=== PATIENT | female | born 1940 | race Caucasian/White ===

== ENCOUNTER 2020-08-19 12:13 | Emergency (ER) | payer MEDICARE ==
[2020-08-19 12:29] VITALS: BP 188/73; PULSE 57; RESP 18; TEMP 97.8
[2020-08-19] MEDS ORDERED: MORPHINE SULFATE 4 MG/ML SYRINGE IM STA (12:57)
--- NOTE | 2020-08-19 13:02 | ED ---
Extremity Problem HPI - General Chief complaint: Extremity Problem,Nontraumatic Stated complaint: Pain in RT Leg Time Seen by Provider: 08/19/20 12:38 Source: patient, RN notes reviewed Mode of arrival: wheelchair Limitations: no limitations - History of Present Illness Initial comments: 80-year-old female presents emergency Department with chief complaint of right leg pain. Patient states his has been ongoing for last several months. Patient states started after she was cleaning in her house. Patient has been seen by urgent care, primary multiple times, emergency department, chiropractor. Patient states that she's been referred for an MRI she has not seen orthopedics. She states she has a burning type pain down her leg denies any swelling redness discoloration patient states his hurts with movement. Denies any bowel bladder incontinence or retention. Patient has been on steroids. - Related Data Previous Rx's Medication Instructions Recorded HYDROcodone/APAP 5-325MG [Marshall 5] 1 each PO Q6HR PRN #12 tab 08/19/20 Allergies Allergy/AdvReac Type Severity Reaction Status Date / Time No Known Allergies Allergy Verified 08/19/20 12:29 Review of Systems ROS Statement: Those systems with pertinent positive or pertinent negative responses have been documented in the HPI. ROS Other: All systems not noted in ROS Statement are negative. Past Medical History Past Medical History: Dementia, Diabetes Mellitus, Hyperlipidemia, Hypertension, Memory Impairment, Renal Disease, Thyroid Disorder History of Any Multi-Drug Resistant Organisms: None Reported Past Surgical History: Bladder Surgery, Breast Surgery, Joint Replacement Additional Past Surgical History / Comment(s): bladder suspension, partial hysterectomy. Past Psychological History: No Psychological Hx Reported Smoking Status: Never smoker Past Alcohol Use History: None Reported Past Drug Use History: None Reported General Exam Limitations: no limitations General appearance: alert, in no apparent distress Head exam: Present: atraumatic, normocephalic, normal inspection Neck exam: Present: normal inspection. Absent: tenderness, meningismus, lymphadenopathy Respiratory exam: Present: normal lung sounds bilaterally. Absent: respiratory distress, wheezes, rales, rhonchi, stridor Cardiovascular Exam: Present: regular rate, normal rhythm, normal heart sounds. Absent: systolic murmur, diastolic murmur, rubs, gallop, clicks GI/Abdominal exam: Present: soft, normal bowel sounds. Absent: distended, tenderness, guarding, rebound, rigid Extremities exam: Present: other (Lower extremity color equal bilaterally, strength equal, tenderness the right thigh region) Back exam: Present: full ROM. Absent: tenderness, paraspinal tenderness, vertebral tenderness Neurological exam: Present: alert, reflexes normal. Absent: motor sensory deficit Course Vital Signs 08/19/20 12:21 Temperature 97.8 F Pulse Rate 57 L Respiratory 18 Rate Blood Pressure 188/73 O2 Sat by Pulse 96 Oximetry Medical Decision Making - Medical Decision Making Patient's symptoms are consistent with lumbar radiculopathy, nerve impingement. Patient has no red flag symptoms. This has been ongoing issue. Patient was provided pain relief, advised to go to orthopedics directly for follow-up appointment. Disposition Clinical Impression: Lumbar radiculopathy, acute Disposition: HOME SELF-CARE Condition: Stable Instructions (If sedation given, give patient instructions): Lumbar Radiculopathy (ED) Additional Instructions: Please return to the Emergency Department if symptoms worsen or any other concerns. Prescriptions: HYDROcodone/APAP 5-325MG [Marshall 5] 1 each PO Q6HR PRN #12 tab PRN Reason: Pain Is patient prescribed a controlled substance at d/c from ED?: Yes When asked, does pt state using other controlled substances?: No If prescribed controlled substance>3 days was MAPS reviewed?: Prescribed <3 Days If opioid is for acute pain is fill amount 7 days or less?: Yes If Rx opioid, was Start Talking consent form obtained?: Yes Referrals: Minda Prater DO [Primary Care Provider] - 1-2 days Unique Mercer DO [Doctor of Osteopathic Medicine] - 1-2 days Lonnie Boo DO [Doctor of Osteopathic Medicine] - 1-2 days Time of Disposition: 13:01
== END 2020-08-19 13:29 | disposition home or self-care (01) ==
LOC: EC 12:13
DX: M54.16 Radiculopathy, lumbar region (principal); M79.651 Pain in right thigh; E11.9 Type 2 diabetes mellitus without complications; E78.5 Hyperlipidemia, unspecified; F03.90 Unspecified dementia, unspecified severity, without behavioral disturbance, psychotic disturbance, mood disturbance, and anxiety; I10 Essential (primary) hypertension
CPT/HCPCS: 99283; 96372; J2270

== ENCOUNTER 2020-09-05 00:30 | Inpatient (IN) | payer MEDICARE ==
[2020-09-05] MEDS ORDERED: MORPHINE SULFATE 4 MG/ML SYRINGE IV STA (01:20)
[2020-09-05 01:56] LABS: Basophils % (A) 0 %; Eosinophils % (A) 1 %; HCT 38.4 % (34.0-46.0); HGB 12.2 gm/dL (11.4-16.0); Lymphocytes # (A) 0.7 k/uL (1.0-4.8); Lymphocytes % (A) 11 %; MCHC 31.8 g/dL (31.0-37.0); MCV 88.3 fL (80.0-100.0); Mean Platelet Volume 6.6; Monocytes # (A) 0.4 k/uL (0-1.0); Monocytes % (A) 7 %; Neutrophils # (A) 4.8 k/uL (1.3-7.7); Neutrophils % (A) 80 %; Platelet Count 176 k/uL (150-450); RBC 4.35 m/uL (3.80-5.40); RDW 15.7 % (11.5-15.5); WBC 6.1 k/uL (3.8-10.6)
[2020-09-05 02:13] LABS: Albumin 3.5 g/dL (3.5-5.0); Calcium 9.6 mg/dL (8.4-10.2); Potassium 3.9 mmol/L (3.5-5.1); Total Bilirubin 0.2 mg/dL (0.2-1.3); Total Protein 6.1 g/dL (6.3-8.2)
--- NOTE | 2020-09-05 02:16 | XR ---
EXAM: XR Chest, 1 View CLINICAL HISTORY: ITS.REASON XR Reason: weakness TECHNIQUE: Frontal view of the chest. COMPARISON: No previous studies. FINDINGS: Lungs: No consolidative change. 0.3 cm calcified granuloma at the left upper lobe. Pleural space: No pleural effusion. No pleural effusions. No pneumothorax. Heart: Cardiomegaly. Mediastinum: Unremarkable. Bones/joints: Unremarkable. Vasculature: Atherosclerotic disease of the aortic knob. IMPRESSION: 1. Cardiomegaly. 2. No pleural effusion. 3. No consolidative change. 4. Calcified granuloma at the left upper lobe.
--- NOTE | 2020-09-05 02:31 | CT ---
EXAM: CT Lumbar Spine Without Intravenous Contrast CLINICAL HISTORY: ITS.REASON CT Reason: pain TECHNIQUE: Axial computed tomography images of the lumbar spine without intravenous contrast. CTDI is 47.1 mGy and DLP is 1425.5 mGy-cm. This CT exam was performed using one or more of the following dose reduction techniques: automated exposure control, adjustment of the mA and/or kV according to patient size, and/or use of iterative reconstruction technique. COMPARISON: MRI study of 08/23/2020. FINDINGS: Vertebrae: There is grade 1 anterolisthesis of L4 upon L5 vertebral body without spondylolysis. There is very minimal grade 1 retrolisthesis of L2 upon L3 vertebral body, without spondylolysis. No compression deformity. Transverse processes are unremarkable. Gas bubbles are noted within the spinal canal at the level of the L3 vertebral body of uncertain etiology. Sacrum/coccyx: Visualized lower thoracic spine and the visualized sacrum are unremarkable. Soft tissues: Unremarkable. Vasculature: Atherosclerotic disease. Lungs: Minimal scarring at the lung bases. Minimal scarring and subsegmental atelectasis at the lung bases. DISCS/SPINAL CANAL/NEURAL FORAMINA: L1-L2: Minimal broad-based protrusion is noted at L1-2 level with impression upon the anterior thecal sac but no narrowing of the neural foramina. L2-L3: Vacuum discs are noted at L2-3, L3-4, and L5-S1 levels. Degenerative disc disease most notably at the L2-3 and L3-4 levels. Transaxial images of the lumbar spine reveals severe spinal stenosis at the L2-3 level and posterior facet hypertrophy. L3-L4: Moderate to severe spinal stenosis is noted at the L3-4 level. Broad-based protrusion is noted with moderate to severe narrowing of the right neural foramina and moderate narrowing of the left neural foramina. L4-L5: Moderate posterior facet hypertrophy at L4-5 level. Severe acquired spinal stenosis at the L4-5 level. L5-S1: See above. Other findings: Moderate osteoarthritic changes about the sacroiliac joints. Broad-based protrusion is noted with moderate to severe narrowing of the right neural foramina and moderate narrowing of the left neural foramina. Broad-based protrusion is noted with moderate to severe narrowing of neural foramina. Broad-based protrusion is noted with mild to moderate narrowing of neural foramina. IMPRESSION: 1. Diffuse and severe spondylosis throughout the lumbar spine most notably at the L2-3, L4-5, and L5-S1 levels, similar to MRI study. 2. As discussed above gas bubbles are noted within the spinal canal posteriorly at the level of the L3 vertebral body of uncertain etiology. Is there a history of recent instrumentation? Again this finding is equivocal and of uncertain significance etiology. An inflammatory or infectious etiology or an abscess collection in the area cannot be excluded based on the current study. Further workup is necessary. Magnetic resonance imaging of the lumbar spine with contrast administration is highly advised for further assessment. 3. Multilevel spinal stenosis.
--- NOTE | 2020-09-05 02:35 | CT ---
EXAM: CT Pelvis Without Intravenous Contrast CLINICAL HISTORY: ITS.REASON CT Reason: pelvis pain TECHNIQUE: Axial computed tomography images of the pelvis without intravenous contrast. CTDI is 15.2 mGy and DLP is 554.7 mGy-cm. This CT exam was performed using one or more of the following dose reduction techniques: automated exposure control, adjustment of the mA and/or kV according to patient size, and/or use of iterative reconstruction technique. COMPARISON: No previous studies. FINDINGS: Bowel: Diverticulosis of the sigmoid colon. Best seen on axial image 35, there is very minimal haziness within the mesentery surrounding the mid sigmoid colon. The possibility of very early acute diverticulitis cannot be excluded and clinical correlation is advised. Ischiorectal fat is clean. No obstruction. Appendix: No findings to suggest acute appendicitis. Intraperitoneal space: Unremarkable. No free air. No significant fluid collection. Bladder: Unremarkable. No stones. Reproductive: Status post hysterectomy. Bones/joints: Mild to moderate osteoarthritic changes about the hip joints. The superior and inferior pubic rami are unremarkable. Moderate to severe osteoarthritic changes about the sacroiliac joints. There is grade 1 anterolisthesis of L4 upon L5 vertebral body. The sacrum and coccyx are unremarkable. The bony pelvis is unremarkable. Visualized transverse processes of the lower lumbar spine are unremarkable. No acute fracture. No dislocation. Soft tissues: 1.4 cm umbilical hernia containing mesenteric fat only. Vasculature: Unremarkable. No lower abdominal aortic aneurysm. Lymph nodes: Unremarkable. No enlarged lymph nodes. IMPRESSION: 1. Osteoarthritic and degenerative changes. 2. No acute fracture or dislocation. 3. Diverticulosis of the sigmoid colon. 4. Very minimal and subtle stranding is noted within the mesentery surrounding the mid sigmoid colon possibly on the basis of very early acute diverticulitis. This is an equivocal finding which requires clinical correlation. 5. Status post hysterectomy.
[2020-09-05] MEDS ORDERED: SODIUM CHLORIDE 0.9% 1,000 ML IV STA (03:11)
[2020-09-05] MEDS ORDERED: SODIUM CHLORIDE 0.9% 1,200 ML IV ONE (03:11)
[2020-09-05] MEDS ORDERED: LORazepam 2 MG/ML INJ IV STA (04:27)
[2020-09-05] MEDS ORDERED: NALOXONE 0.4 MG/ML 1 ML VIAL IV PRN (05:15)
[2020-09-05] MEDS ORDERED: ACETAMINOPHEN TAB 325 MG TAB PO PRN (05:15)
--- NOTE | 2020-09-05 05:31 | ED ---
General Adult HPI - General Chief complaint: Back Pain/Injury Stated complaint: Weakness Time Seen by Provider: 09/05/20 00:32 Source: EMS Mode of arrival: EMS Limitations: altered mental status - History of Present Illness Initial comments: This patient is an 80-year-old woman who arrives by ambulance with complaint of weakness and inability to walk. Patient states that she has been having back pain for quite some time and that she was not able to walk tonight due to flareup of pain associated with generalized weakness. Pain has been going on for at least some weeks and she was seen here 11 days ago for similar complaint. Tonight the patient was unable to get up from the commode after using the bathroom and they called EMS. The patient indicates mainly left lower back pain radiating into her leg. She states she has had similar symptoms intermittently for years. She has had MRI and was told she has disc disease. -: days(s) Location: back Radiation: extremity (Left leg) Quality: burning, aching Consistency: constant Improves with: none Worsens with: none Associated Symptoms: weakness Treatments Prior to Arrival: none - Related Data Previous Rx's Medication Instructions Recorded HYDROcodone/APAP 5-325MG [Kennard 5] 1 each PO Q6HR PRN #12 tab 08/19/20 Allergies Allergy/AdvReac Type Severity Reaction Status Date / Time No Known Allergies Allergy Verified 09/05/20 01:09 Review of Systems ROS Statement: Those systems with pertinent positive or pertinent negative responses have been documented in the HPI. ROS Other: All systems not noted in ROS Statement are negative. Constitutional: Reports: weakness (Generalized). Denies: fever, chills Respiratory: Denies: cough, dyspnea Cardiovascular: Denies: chest pain, palpitations, edema Gastrointestinal: Reports: diarrhea. Denies: abdominal pain, nausea, vomiting Genitourinary: Denies: dysuria, hematuria Musculoskeletal: Reports: as per HPI, back pain Skin: Denies: rash Neurological: Denies: headache, weakness (Focal), numbness Past Medical History Past Medical History: Diabetes Mellitus, Hyperlipidemia, Hypertension, Memory Impairment, Renal Disease, Thyroid Disorder History of Any Multi-Drug Resistant Organisms: None Reported Past Surgical History: Bladder Surgery, Breast Surgery, Cholecystectomy, Joint Replacement Additional Past Surgical History / Comment(s): bladder suspension, partial hysterectomy. Past Psychological History: No Psychological Hx Reported Smoking Status: Never smoker Past Alcohol Use History: None Reported Past Drug Use History: None Reported General Exam Limitations: altered mental status General appearance: alert Head exam: Present: atraumatic, normocephalic Eye exam: Present: normal appearance Respiratory exam: Present: normal lung sounds bilaterally. Absent: respiratory distress, wheezes, rales, rhonchi, stridor Cardiovascular Exam: Present: regular rate, normal rhythm, normal heart sounds. Absent: systolic murmur, diastolic murmur, rubs, gallop GI/Abdominal exam: Present: soft. Absent: distended, tenderness, guarding, rebound, rigid, mass Back exam: Present: normal inspection. Absent: CVA tenderness (R), CVA tenderness (L), paraspinal tenderness, vertebral tenderness Neurological exam: Present: alert. Absent: motor sensory deficit Skin exam: Present: warm, dry, intact, normal color. Absent: rash Course Vital Signs 09/05/20 09/05/20 01:04 02:30 Temperature 97.6 F Pulse Rate 92 86 Respiratory 20 18 Rate Blood Pressure 137/110 138/91 O2 Sat by Pulse 92 L 97 Oximetry Medical Decision Making - Medical Decision Making Patient is an 80-year-old woman brought by ambulance to be evaluated after she was too weak to walk back to bed from the commode [facility]. Patient had been having some incontinence of bowel tonight but had not had bowel movement in 6 days and had taken milk of magnesia. The patient has either some underlying dementia or some acute delirium as she is not able to give entire details. Patient's family did add that she had had a number of falls over the past few weeks and given the pain CT is ordered which does not reveal any acute fracture. There is severe lumbar disc disease, and she had been receiving some form of traction therapy through [facility] [place], on and Monday. There is question of some air bubbles in the spine at L3 level. In relation to this, patient given antibiotics. Case discussed with orthopedics [facility] Dr. Ocasio is covering for Dr. Mercer. Will order MRI of lumbar spine. Patient is not having fever or white count. Patient admitted under medical service. - Lab Data Result diagrams: 09/05/20 01:09/05/20 01:29 Lab Results 09/05/20 09/05/20 09/05/20 Range/Units 01:29 01:29 01:29 WBC 6.1 (3.8-10.6) k/uL RBC 4.35 (3.80-5.40) m/uL Hgb 12.2 (11.4-16.0) gm/dL Hct 38.4 (34.0-46.0) % MCV 88.3 (80.0-100.0) fL MCH 28.0 (25.0-35.0) pg MCHC 31.8 (31.0-37.0) g/dL RDW 15.7 H (11.5-15.5) % Plt Count 176 (150-450) k/uL MPV 6.6 Neutrophils % 80 % Lymphocytes % 11 % Monocytes % 7 % Eosinophils % 1 % Basophils % 0 % Neutrophils # 4.8 (1.3-7.7) k/uL Lymphocytes # 0.7 L (1.0-4.8) k/uL Monocytes # 0.4 (0-1.0) k/uL Eosinophils # 0.0 (0-0.7) k/uL Basophils # 0.0 (0-0.2) k/uL Sodium 136 L (137-145) mmol/L Potassium 3.9 (3.5-5.1) mmol/L Chloride 95 L (98-107) mmol/L Carbon Dioxide 35 H (22-30) mmol/L Anion Gap 6 mmol/L BUN 21 H (7-17) mg/dL Creatinine 1.41 H (0.52-1.04) mg/dL Est GFR (CKD-EPI)AfAm 40 (>60 ml/min/1.73 sqM) Est GFR (CKD-EPI)NonAf 35 (>60 ml/min/1.73 sqM) Glucose 160 H (74-99) mg/dL Lactic Ac Sepsis Rflx Plasma Lactic Acid Isra 2.9 H* (0.7-2.0) mmol/L Calcium 9.6 (8.4-10.2) mg/dL Magnesium 3.0 H (1.6-2.3) mg/dL Total Bilirubin 0.2 (0.2-1.3) mg/dL AST 27 (14-36) U/L ALT 13 (4-34) U/L Alkaline Phosphatase 72 (38-126) U/L Troponin I (0.000-0.034) ng/mL Total Protein 6.1 L (6.3-8.2) g/dL Albumin 3.5 (3.5-5.0) g/dL 09/05/20 09/05/20 Range/Units 01:29 02:51 WBC (3.8-10.6) k/uL RBC (3.80-5.40) m/uL Hgb (11.4-16.0) gm/dL Hct (34.0-46.0) % MCV (80.0-100.0) fL MCH (25.0-35.0) pg MCHC (31.0-37.0) g/dL RDW (11.5-15.5) % Plt Count (150-450) k/uL MPV Neutrophils % % Lymphocytes % % Monocytes % % Eosinophils % % Basophils % % Neutrophils # (1.3-7.7) k/uL Lymphocytes # (1.0-4.8) k/uL Monocytes # (0-1.0) k/uL Eosinophils # (0-0.7) k/uL Basophils # (0-0.2) k/uL Sodium (137-145) mmol/L Potassium (3.5-5.1) mmol/L Chloride (98-107) mmol/L Carbon Dioxide (22-30) mmol/L Anion Gap mmol/L BUN (7-17) mg/dL Creatinine (0.52-1.04) mg/dL Est GFR (CKD-EPI)AfAm (>60 ml/min/1.73 sqM) Est GFR (CKD-EPI)NonAf (>60 ml/min/1.73 sqM) Glucose (74-99) mg/dL Lactic Ac Sepsis Rflx Y Plasma Lactic Acid Isra (0.7-2.0) mmol/L Calcium (8.4-10.2) mg/dL Magnesium (1.6-2.3) mg/dL Total Bilirubin (0.2-1.3) mg/dL AST (14-36) U/L ALT (4-34) U/L Alkaline Phosphatase (38-126) U/L Troponin I <0.012 (0.000-0.034) ng/mL Total Protein (6.3-8.2) g/dL Albumin (3.5-5.0) g/dL Disposition Clinical Impression: Intractable low back pain Disposition: ADMITTED IP TO THIS [facility] Condition: Fair
[2020-09-05] MEDS ORDERED: VANCOMYCIN IV PER PHARMACY 1 EACH MISC MISCELLANE PRN (05:32)
[2020-09-05] MEDS ORDERED: VANCOMYCIN 1,500 MG in SODIUM CHLORIDE 0.9% 250 ML IVPB ONE (05:45)
[2020-09-05 07:02] LABS: Amorphous Sediment,Urine Few /hpf; Appearance,Urine Clear (Clear); Bacteria,Urine Rare /hpf; Bilirubin,Urine Negative (Negative); Blood,Urine Negative (Negative); Color,Urine Yellow; Glucose,Urine (UA) Negative (Negative); Ketones,Urine Negative (Negative); Leukocyte Esterase,Urine Negative (Negative); Nitrite,Urine Negative (Negative); Protein,Urine 2+ (Negative); Specific Gravity,Urine 1.014 (1.001-1.035); Urobilinogen,Urine <2.0 mg/dL (<2.0); WBC,Urine 3 /hpf (0-5)
--- NOTE | 2020-09-05 10:12 | CT ---
EXAMINATION TYPE: CT brain wo con DATE OF EXAM: 09/05/2020 HISTORY: altered mental status CT DLP: 1143.4 mGycm. Automated Exposure Control for Dose Reduction was Utilized. TECHNIQUE: CT scan of the head is performed without contrast. COMPARISON: None. FINDINGS: There is no acute intracranial hemorrhage or midline shift identified. There is mild diff use ventricular and sulcal prominence consistent with diffuse age-related cerebral atrophy. There is mild low-attenuation in the periventricular white matter consistent with chronic small vessel ischem ic change. Nasal septum deviated to right of midline. Hyperostosis frontalis. The globes are intact b ilaterally. The paranasal sinuses are grossly clear. IMPRESSION: No acute intracranial hemorrhage or midline shift. There is mild diffuse age-related ce rebral atrophy and chronic small vessel ischemic change noted.
[2020-09-05] MEDS: MORPHINE SULFATE 4 MG/ML SYRINGE IV PRN ×2 (11:05→17:31)
[2020-09-05] MEDS ORDERED: CYCLOBENZAPRINE 10 MG TAB PO PRN (11:47)
--- NOTE | 2020-09-05 11:48 | P.CNOR ---
History of Present Illness - [facility] Consult date: 09/05/20 Consult reason: back pain History of present illness: This patient is an 80-year-old woman who arrives by ambulance with complaint of weakness and inability to walk. Patient states that she has been having back pa in for quite some time and that she was not able to walk tonight due to flareup of pain associated with generalized weakness. Pain has been going on for at least some weeks and she was seen here 11 days ago for similar complaint. Tonight the patient was unable to get up from the commode after using the bathroom and they called EMS. The patient indicates mainly left lower back pain radiating into her leg. She states she has had similar symptoms intermittently for years. According to nursing staff, family reports that she has been taking oral pain medication at home and has been having some confusion and balance issues recently. There was concern that she was having a stroke which prompted them to call for EMS. The patient is a poor historian. According to nursing staff family states that she did have a "procedure for pain" within the last week which did improve her symptoms somewhat. We are consulted for orthopedic evaluation of her low back pain. Past Medical History Past Medical History: Diabetes Mellitus, Hyperlipidemia, Hypertension, Memory Impairment, Renal Disease, Thyroid Disorder History of Any Multi-Drug Resistant Organisms: None Reported Past Surgical History: Bladder Surgery, Breast Surgery, Cholecystectomy, Joint Replacement Additional Past Surgical History / Comment(s): bladder suspension, partial hysterectomy. Past Psychological History: No Psychological Hx Reported Smoking Status: Never smoker Past Alcohol Use History: None Reported Past Drug Use History: None Reported - Past Family History Mother Family Medical History: Dementia Brother(s) Family Medical History: Dementia, Myocardial Infarction (CT) Medications and Allergies Home Medications Medication Instructions Recorded Confirmed Type Cyclobenzaprine [Flexeril] 10 mg PO BID PRN 09/05/20 09/05/20 History HYDROcodone/APAP 5-325MG [[place] 5] 0.5 - 1 tab PO Q4-6H PRN 09/05/20 09/05/20 History Insulin Glargine,Hum.rec.anlog 10 - 12 unit SQ DAILY 09/05/20 09/05/20 History [Lantus Solostar] Metoprolol Tartrate [Lopressor] 12.5 mg PO BID 09/05/20 09/05/20 History Olmesartan Medoxomil [Benicar] 40 mg PO DAILY 09/05/20 09/05/20 History Simvastatin [Zocor] 20 mg PO HS 09/05/20 09/05/20 History amLODIPine [Norvasc] 5 mg PO HS 09/05/20 09/05/20 History Allergies Allergy/AdvReac Type Severity Reaction Status Date / Time No Known Allergies Allergy Verified 09/05/20 10:36 Physical Examination This is an 80-year-old female in no acute distress. She is sleepy during exam today. She has difficulty staying awake but is arousable. She is unable to provide much history. She does complain of mid to low back pain. Exam of the head neck reveal no obvious deformity. She has full cervical spine motion without difficulty or pain. No pain on palpation about the cervical spine or paraspinal musculature. The patient is unable to roll to her side or sit up on exam today. I'm able to slide my hand below her back. There is pain with palpation about the mid to lower lumbar spine. There is also some paraspinal musculature tenderness bilaterally. Exam of the lower extremities reveals no obvious deformity. She is unable to lift each leg independently off the bed but has minimal pain with passive knee and hip flexion. Straight leg raise does not produce significant pain. She has full foot and ankle motion bilaterally. There is some weakness noted to the left foot and ankle with dorsiflexion against resistance compared to the right. She has normal sensation to the toes. Capillary refill is less than [address] of the pelvis and lumbar spine reveal degenerative changes throughout the lumbar spine with spondylolysis and degenerative disc disease throughout. There is a small amount of air seen on the CT in the epidural space at the level of L3 which could be secondary to a recent epidural injection. No acute fractures identified. - Labs Labs: Abnormal Lab Results - Last 24 Hours (Table) 09/05/20 09/05/20 09/05/20 Range/Units 01:29 01:29 01:29 RDW 15.7 H (11.5-15.5) % Lymphocytes # 0.7 L (1.0-4.8) k/uL ESR (0-20) mm/hr Sodium 136 L (137-145) mmol/L Chloride 95 L (98-107) mmol/L Carbon Dioxide 35 H (22-30) mmol/L BUN 21 H (7-17) mg/dL Creatinine 1.41 H (0.52-1.04) mg/dL Glucose 160 H (74-99) mg/dL Plasma Lactic Acid Isra 2.9 H* (0.7-2.0) mmol/L Magnesium 3.0 H (1.6-2.3) mg/dL C-Reactive Protein (<1.0) mg/dL Total Protein 6.1 L (6.3-8.2) g/dL Urine Protein (Negative) Amorphous Sediment (None) /hpf Urine Bacteria (None) /hpf 09/05/20 09/05/20 09/05/20 Range/Units 01:29 06:20 06:40 RDW (11.5-15.5) % Lymphocytes # (1.0-4.8) k/uL ESR 35 H (0-20) mm/hr Sodium (137-145) mmol/L Chloride (98-107) mmol/L Carbon Dioxide (22-30) mmol/L BUN (7-17) mg/dL Creatinine (0.52-1.04) mg/dL Glucose (74-99) mg/dL Plasma Lactic Acid Isra (0.7-2.0) mmol/L Magnesium (1.6-2.3) mg/dL C-Reactive Protein 2.4 H (<1.0) mg/dL Total Protein (6.3-8.2) g/dL Urine Protein 2+ H (Negative) Amorphous Sediment Few H (None) /hpf Urine Bacteria Rare H (None) /hpf H & H 09/05/20 Range/Units 01:29 Hgb 12.2 (11.4-16.0) gm/dL Hct 38.4 (34.0-46.0) % Result Diagrams: 09/05/20 01:29 09/05/20 01:29 Assessment and Plan (1) Altered mental status Current Visit: Yes Status: Acute Code(s): R41.82 - ALTERED MENTAL STATUS, UNSPECIFIED SNOMED Code(s): 838126806 (2) Intractable low back pain Current Visit: Yes Status: Acute Code(s): M54.5 - LOW BACK PAIN SNOMED Code(s): 28000315488558359 (3) Lumbar radiculopathy, acute Current Visit: No Status: Acute Code(s): M54.16 - RADICULOPATHY, LUMBAR REGION SNOMED Code(s): 143090305 Plan: The clinical and radiographic findings are discussed the patient and nursing staff. The patient is going down for MRI of her lumbar spine at this time. I have asked nursing staff to clarify with family as to if the patient had an epidural injection and the exact date. The patient does have elevated CRP but does have some findings consistent with diverticulitis as well. I will await MRI findings and discuss the case with Dr. Mercer.
--- NOTE | 2020-09-05 12:27 | MR ---
EXAMINATION TYPE: MR lumbar spine wo/w con DATE OF EXAM: 09/05/2020 COMPARISON: CT earlier today HISTORY: Back pain TECHNIQUE: Multiplanar, multisequence images of the lumbar spine is performed without and with IV contrast, util izing 8.5 mL intravenous Gadavist FINDINGS: Sagittal images of the lumbar spine show vertebral body heights to remain satisfactory. The re is grade 1 1 retrolisthesis L2 on L3. There is grade 1 anterolisthesis L4 on L5. Moderate vacuum d isc phenomenon and disc space narrowing L2-L3 level with heterogeneous Modic type III endplate change s. Conus medullaris is normal in position and signal in the L1-L2 disc space. [id number] multil evel anterior spurring upper lumbar spine. Mild disc space narrowing and vacuum disc phenomenon L3-L4 level. No suspicious postcontrast enhancement. Images at T12-L1 level show mild facet arthropathy bilaterally. Axial images at L1-L2 level show mild facet arthropathy and mild broad disc bulge but spinal canal is preserved. Axial images at L2-L3 levels with spondylolisthesis with broad-based posterior disc herniation, there is inferior extrusion component sagittal image 9. There is moderate facet arthropathy bilaterally. T here is effacement of the anterior and posterior lateral thecal sac sagittal image 18. There is mild to moderate right greater than left bilateral anterior inferior neural foraminal narrowing. Axial images at L3-L4 level shows moderate facet arthropathy and ligament hypertrophy effacing loop sewer ior lateral thecal sac. There is mild/moderate broad-based posterior disc protrusion effacing the ant erior thecal sac. There is moderate bilateral inferior neural foraminal narrowing. Axial images at the L4-L5 level show moderate to advanced facet arthropathy bilaterally. There is spo ndylolisthesis. There is effacement of the anterior and left greater than right posterior lateral the peyman sac axial image 8. There is mild left greater than right bilateral anterior-inferior neural dawood inal narrowing. Axial images at the L5-S1 level show moderate facet arthropathy bilaterally. There is tiny central di sc protrusion. There is mild/moderate right greater than left bilateral neural foraminal narrowing. E ncroachment on the extraforaminal right L5 nerve due to right lateral disc protrusion component sagit lori image 14 and axial image 3 noted. No suspicious incidental retroperitoneal finding. IMPRESSION: Multilevel spondylolisthesis and degenerative changes as detailed above. Most prominent s giorgio canal effacement of stenosis noted at L2-L3 level. Findings correlated with CT study earlier to day.
--- NOTE | 2020-09-05 12:32 | P.CNNES ---
History of Present Illness Consult date: 09/05/20 Requesting physician: Hay Johansen Reason for Consult: altered mental status change History of Present Illness: This is an 80-year-old woman with medical history of chronic lower back pain, diabetes mellitus, hypertension, hyperlipidemia, reported memory impairment, chronic kidney insufficiency who presented emergency department on 09/05/2020 because of weakness and inability to walk. Some of the history is obtained from medical record since patient is unable to provide all the history. Per the ED note is a reported of the patient and has chronic back pain and recently patient's having difficulty walking recently because of the flareup of the pain and she is having the associated generalized weakness. It seems that the patient is having left lower back pain radiating to the her legs She is having difficulty getting out of the commode after using the bathroom and as a result the family contacted EMS. It seems that the patient had a similar episode about 11 days ago and was seen and in the ED for the similar complaint. Per the patient's nurse, she was notified by the family that for the last 3 weeks the patient has been getting pain medications/narcotics and has a been a little bit more drowsy but they noticed worsening of her mentation and the last few days. No seizure-like activity was reported by the nurse by the family or since the patient has been the hospital. Patient does admit that she is having some lower abdominal pain. Some of the workup in the hospital consisted of: Initial vital signs: Is blood pressure of 137/110, heart rate of 92, respiratory of 20, temperature of 97.6 Fahrenheit oral, and pulse ox of 92% on room air. CT of the head is reported as no acute intracranial hemorrhage or midline shift. There is mild diffuse age-related cerebral atrophy and chronic small vessel ischemic changes noted. CT lumbar spine is reported as diffuse and severe spondylosis throughout the lumbar spine most notably at the L2-L3, L4-L5 and L5-S1 level, similar to MRI study. As discussed above gas bubbles are noted within the spinal canal posteriorly at the level L3 vertebral body of uncertain etiology. Is there any history of recent instrumentation? Again this finding is equivocal and uncertain significance etiology. An inflammatory or infectious etiology or an abscess collection in the area cannot be excluded based on the current study. Further workup is necessary. Magnetic resonance imaging of the lumbar spine with contrast administration is highly advise further assessment. Multilevel spinal stenosis. CT pelvis is reported as osteoarthritis and degenerative changes at. No acute fracture or dislocation. Diverticulosis of the sigmoid colon that. Very minima l and subtotal stranding is noted within the mesentery surrounding the mid sigmoid colon possibly on the basis of vertebral artery acute diverticulitis. This is an equivocal finding which requires clinical correlation. Status post hysterectomy. White blood cell is 6.1 thousand which is considered within normal limits. Plasma lactic acid that venous is 2.9 which is elevated. CRP is 2.4 which is a elevated. ESR 35 which is elevated. Sodium is 136 which is slightly low. Creatinine is 1.41 which is elevated. Review of Systems Review of system is limited but the per positive and negative as per HPI. Past Medical History Past Medical History: Diabetes Mellitus, Hyperlipidemia, Hypertension, Memory Impairment, Renal Disease, Thyroid Disorder History of Any Multi-Drug Resistant Organisms: None Reported Past Surgical History: Bladder Surgery, Breast Surgery, Cholecystectomy, Joint Replacement Additional Past Surgical History / Comment(s): bladder suspension, partial hysterectomy. Past Psychological History: No Psychological Hx Reported Smoking Status: Never smoker Past Alcohol Use History: None Reported Past Drug Use History: None Reported - Past Family History Mother Family Medical History: Dementia Brother(s) Family Medical History: Dementia, Myocardial Infarction (ME) Medications and Allergies Home Medications Medication Instructions Recorded Confirmed Type Cyclobenzaprine [Flexeril] 10 mg PO BID PRN 09/05/20 09/05/20 History HYDROcodone/APAP 5-325MG [[place] 5] 0.5 - 1 tab PO Q4-6H PRN 09/05/20 09/05/20 History Insulin Glargine,Hum.rec.anlog 10 - 12 unit SQ DAILY 09/05/20 09/05/20 History [Lantus Solostar] Metoprolol Tartrate [Lopressor] 12.5 mg PO BID 09/05/20 09/05/20 History Olmesartan Medoxomil [Benicar] 40 mg PO DAILY 09/05/20 09/05/20 History Simvastatin [Zocor] 20 mg PO HS 09/05/20 09/05/20 History amLODIPine [Norvasc] 5 mg PO HS 09/05/20 09/05/20 History Allergies Allergy/AdvReac Type Severity Reaction Status Date / Time No Known Allergies Allergy Verified 09/05/20 10:36 Physical Examination - Vital Signs Vital Signs: Vital Signs Temp Pulse Pulse Resp BP BP Pulse Ox 09/05/20 10:00 98.6 F 89 19 173/85 98 09/05/20 09:39 97.6 F 88 16 149/85 99 09/05/20 08:20 75 18 157/71 98 09/05/20 07:41 98.3 F 09/05/20 06:00 98.6 F 87 18 168/76 96 09/05/20 04:00 89 20 138/91 96 09/05/20 02:30 86 18 138/91 97 09/05/20 01:04 97.6 F 92 20 137/110 92 L Intake and Output 09/04/20 09/05/20 09/05/20 22:59 06:59 14:59 Output Total 650 Balance -650 Output: Urine 650 Straight 650 Other: Weight 86.183 kg GENERAL: The patient is lying in bed and is not in acute distress. CHEST: The heart rate is regular rate rhythm. No murmurs to auscultation. LUNG: Clear to auscultation bilaterally no wheezing noted throughout. Not labored breathing. ABDOMEN/GI: Bowel sounds present in all 4 quadrants. No tenderness to palpation throughout. NEUROLOGICAL: Limited since just received morphine (and has received Morphine and ativan once in the ED per nurse). Higher mental function: The patient is drowsy but awakeable to voice. Oriented to self, and stated she is in the hospital but could not tell which. She stated the year is 1920. She is able to name objects correctly (pen, watch and glasses). Patient is following simple commands (showed thumbs up and sticking her tongue out on command). No aphasia from limited language testing. No neglect. Cranial nerves: The pupils are round, equal and reactive to light. Visual [place] are full to confrontation throughout. Extraocular movement is intact no nystagmus is noted. Facial sensation is normal to touch throughout. The facial strength is normal throughout. Hearing is mildly to moderately bilaterally to hand rub. Tongue is midline and moved [id number] without any difficulty. No dysarthria is noted. Shoulder shrug is normal bilaterally. Motor: Gait is deferred because of pain. The strength is able to raise bilateral lower extremities above gravity (seems weaker over the left compared to right but limited because of pain) while ankles are at least 4/5 bilaterally. While Upper extremities seems good strength without drift. Normal tone and bulk. Cerebellum: Unable to assess because of cooperation. Sensation: Sensation is normal to touch throughout. Reflexes (right/left): 2+ in uppers while 1+ in the lowers. Plantars are downgoing bilaterally. Results AST of 27 and ALT of 13 which considered normal. Ammonia level is less than 9 which is considered normal. Calcium is 9.6 which is considered normal. Magnesium is 3.0 which is the elevated. - Laboratory Findings CBC and BMP: 09/05/20:09/05/20 01:29 Abnormal Lab Findings: Abnormal Labs 09/05/20 09/05/20 09/05/20: 01: 01:29 RDW 15.7 H Lymphocytes # 0.7 L ESR Sodium 136 L Chloride 95 L Carbon Dioxide 35 H BUN 21 H Creatinine 1.41 H Glucose 160 H Plasma Lactic Acid Isra 2.9 H* Magnesium 3.0 H C-Reactive Protein Total Protein 6.1 L Urine Protein Amorphous Sediment Urine Bacteria 09/05/20 09/05/20 09/05/20: 06:20 06:40 RDW Lymphocytes # ESR 35 H Sodium Chloride Carbon Dioxide BUN Creatinine Glucose Plasma Lactic Acid Isra Magnesium C-Reactive Protein 2.4 H Total Protein Urine Protein 2+ H Amorphous Sediment Few H Urine Bacteria Rare H Assessment and Plan Assessment: * Altered mental status: Possibly septic (possibly diverticulitis from imaging (with elevated CRP, ESR, plasma lactic vein) and component from medication effect (Opiates) * Lumbosacral radiculopathy (from history seem left). * Lumbosacral spndylosis (moderate to severe most noteable at L2-L3, L4-L5 and L5-S1 level per CT imaging). * ?gas bubbles are noted within the spinal canal posteriorly at the level L 3 vertebral body of uncertain etiology that is reported on CT lumbar. * Possibly diverticulitis * Reported memory impairments (cognitive memory impairement/dementia) * Chronic kidney insufficiency (unsure of baseline) * Diabetes mellitus * Hypertension * Hyperlipidemia Plan: * CT of the head is reported as no acute intracranial hemorrhage or midline shift. There is mild diffuse age-related cerebral atrophy and chronic small vessel ischemic changes noted. * CT lumbar spine is reported as diffuse and severe spondylosis throughout the lumbar spine most notably at the L2-L3, L4-L5 and L5-S1 level, similar to MRI study. As discussed above gas bubbles are noted within the spinal canal posteriorly at the level L 3 vertebral body of uncertain etiology. Is there any history of recent instrumentation? Again this finding is equivocal and uncertain significance etiology. An inflammatory or infectious etiology or an abscess collection in the area cannot be excluded based on the current study. Further workup is necessary. Magnetic resonance imaging of the lumbar spine with contrast administration is highly advise further assessment. Multilevel spinal stenosis. * CT pelvis is reported as osteoarthritis and degenerative changes at. No acute fracture or dislocation. Diverticulosis of the sigmoid colon that. Very minimal and subtotal stranding is noted within the mesentery surrounding the mid sigmoid colon possibly on the basis of vertebral artery acute diverticulitis. This is an equivocal finding which requires clinical correlation. Status post hysterectomy. * An EEG is not warranted at this time. * Please avoid any sedating of, opiates or narcotic that affects the patient mentation/neurological examination. * MRI of the lumbar spine is ordered and is pending. If MRI Lumbar show signifi cant stenosis/herniation then possibly patient will benefit from surgery but will defer the decision to Orthopedic team. * Orthopedic surgery team is consulted. * I consulted physical therapy and occupation therapy. * Regarding possible diverticulitis we'll defer further management/work-up to the primary team. * We'll defer the rest of the medical management to the primary team. The plan is discussed with the primary team and her nurse. Thank you for the consultation. Torrey Wilson MD Neuro-Hospitalist Time with Patient: Greater than 30
[2020-09-05 16:28] LABS: Glucose,Whole Blood 91 mg/dL (75-99)
[2020-09-05] MEDS: METOPROLOL TARTRATE 12.5 MG TAB PO SCH ×2 (17:31→19:45)
--- NOTE | 2020-09-05 18:21 | P.HPIM ---
History of Present Illness H&P Date: 09/05/20 Chief Complaint: Back pain History of presenting complaint: This is a 80-year-old patient who follows with Dr. Minda arechiga. Patient presented to the ER. Presented with feeling weakness and not able to walk. She has been falling at home. The patient's unknown. She also fell about a week ago. Patient's had chronic low back pain. Her back pain has become much worse in the last 1 week. She thinks she has loss of bowel control in the last 3 days. Also found it difficult to stand up from the potty chair. No fever no chills. She did receive 4 mg of morphine in the ER. Rather sleepy but able to answer some questions. Consultation to neurology and orthopedic spine was done. Patient has a long-standing history of back pain. No fever no chills. Appetite fair. Review of systems: GEN.: Tired sleepy EYES: None HEENT: None NECK: None RESPIRATORY: None CARDIOVASCULAR: None GASTROINTESTINAL: Loss of bowel control GENITOURINARY: None MUSCULOSKELETAL: Pain in many joints including lower back LYMPHATICS: None HEMATOLOGICAL: None PSYCHIATRY: [Forgetful NEUROLOGICAL: Weak In the legs Past medical history to include: Diabetes, hypertension, hyperlipidemia, memory impairment, chronic kidney disease, hypothyroid Social history: Does not smoke or drink alcohol. Apparently lives alone. Family history: Dementia Physical examination: VITAL SIGNS: 98.6, 89, 19, 149/85, 99% on 4 L GENERAL: BMI 32.6, laying in bed, tired but lethargic. EYES: Pupils equal. Conjunctiva normal. HEENT: External appearance of nose and ears normal, oral cavity grossly normal. NECK: JVD not raised; masses not palpable. HEART: First and second heart sounds are normal; no edema. LUNGS: Respiratory rate normal; clear to auscultation. ABDOMEN: Soft, nontender, liver spleen not palpable, no masses palpable. PSYCH: Lethargic but able to answer simple questionsl. NEUROLOGICAL: [Cranial nerves grossly intact; no facial asymmetry, patient not able to lift her legs off the bed. Reflexes quivocal LYMPHATICS: No lymph nodes palpable in the axilla and neck INVESTIGATIONS, reviewed in the clinical context: WBC 6.1 hemoglobin 12.2 platelets 176 potassium 3.9 bicarb 35 BUN 21 and creatinine 1.41 Lactic acid 2.9 Coronavirus [PCR] not detected UA: Protein 2+ Chest x-ray film personally reviewed by me-no obvious infiltrate Lumbar spine computed tomography scan: Diffuse and severe spondylosis at multiple levels some bubbles noted in the spinal canal at the level of L3 vertebral body.. Multilevel spinal stenosis EKG tracing personally reviewed by me-normal sinus rhythm, nonspecific ST and T- wave changes CT brain: Mild diffuse 8 related cerebral atrophy and chronic small vessel ischemic changes Lumbar spine MRI: Multilevel spondylolisthesis and EKG changes most prominent spinal canal effacement of stenosis L2-L3 level. Assessment and plan: -This is a patient with a long-standing history of arthritis presents with falls at home now with worsening low back pain. No fever and chills have been reported. Patient is finding it difficult to see stand up and weak in the legs. Also got bowel incontinence. Concern about spinal cord involvement. Orthopedic spine's been consulted. Infection cannot be ruled out. Patient was started on vancomycin but because of renal function was changed to daptomycin -Acute metabolic encephalopathy, possibly from having received morphine earlier. DC the same -Acute on chronic low back pain DC morphine. Use heating pad. Ultram.. Flexeril 5 mg 3 times a day. Tylenol -Diabetes mellitus type 2, chronically on insulin Follow Accu-Cheks -Hyperlipidemia Continue Zocor -Essential hypertension Continue with Norvasc -Renal failure. Cannot rule out an acute component. Suspect underlying chronic component. Order renal ultrasound. IV fluids. Repeat labs in the morning. Consultation made to neurology and orthopedic spine. DC vancomycin because of renal function. Start daptomycin. IV fluids. Repeat labs in the morning. Hold Cozaar. Fall precautions. Consult ID Past Medical History Past Medical History: Diabetes Mellitus, Hyperlipidemia, Hypertension, Memory Impairment, Renal Disease, Thyroid Disorder History of Any Multi-Drug Resistant Organisms: None Reported Past Surgical History: Bladder Surgery, Breast Surgery, Cholecystectomy, Joint Replacement Additional Past Surgical History / Comment(s): bladder suspension, partial hysterectomy. Past Psychological History: No Psychological Hx Reported Smoking Status: Never smoker Past Alcohol Use History: None Reported Past Drug Use History: None Reported - Past Family History Mother Family Medical History: Dementia Brother(s) Family Medical History: Dementia, Myocardial Infarction ([place]) Medications and Allergies Home Medications Medication Instructions Recorded Confirmed Type Cyclobenzaprine [Flexeril] 10 mg PO BID PRN 09/05/20 09/05/20 History HYDROcodone/APAP 5-325MG [[place] 5] 0.5 - 1 tab PO Q4-6H PRN 09/05/20 09/05/20 History Insulin Glargine,Hum.rec.anlog 10 - 12 unit SQ DAILY 09/05/20 09/05/20 History [Lantus Solostar] Metoprolol Tartrate [Lopressor] 12.5 mg PO BID 09/05/20 09/05/20 History Olmesartan Medoxomil [Benicar] 40 mg PO DAILY 09/05/20 09/05/20 History Simvastatin [Zocor] 20 mg PO HS 09/05/20 09/05/20 History amLODIPine [Norvasc] 5 mg PO HS 09/05/20 09/05/20 History Allergies Allergy/AdvReac Type Severity Reaction Status Date / Time No Known Allergies Allergy Verified 09/05/20 10:36 Physical Exam Vitals: Vital Signs Temp Pulse Pulse Resp BP BP Pulse Ox 09/05/20 09:39 97.6 F 88 16 149/85 99 09/05/20 08:20 75 18 157/71 98 09/05/20 07:41 98.3 F 09/05/20 06:00 98.6 F 87 18 168/76 96 09/05/20 04:00 89 20 138/91 96 09/05/20 02:30 86 18 138/91 97 09/05/20 01:04 97.6 F 92 20 137/110 92 L Intake and Output 09/04/20 09/05/20 09/05/20 22:59 06:59 14:59 Output Total 650 Balance -650 Output: Urine 650 Straight 650 Other: Weight 86.183 kg Results CBC & Chem 7: 09/05/20 01:29 09/05/20 01:29 Labs: Abnormal Lab Results - Last 24 Hours (Table) 09/05/20 09/05/20 09/05/20 Range/Units 01:29 01:29 01:29 RDW 15.7 H (11.5-15.5) % Lymphocytes # 0.7 L (1.0-4.8) k/uL ESR (0-20) mm/hr Sodium 136 L (137-145) mmol/L Chloride 95 L (98-107) mmol/L Carbon Dioxide 35 H (22-30) mmol/L BUN 21 H (7-17) mg/dL Creatinine 1.41 H (0.52-1.04) mg/dL Glucose 160 H (74-99) mg/dL Plasma Lactic Acid Isra 2.9 H* (0.7-2.0) mmol/L Magnesium 3.0 H (1.6-2.3) mg/dL C-Reactive Protein (<1.0) mg/dL Total Protein 6.1 L (6.3-8.2) g/dL Urine Protein (Negative) Amorphous Sediment (None) /hpf Urine Bacteria (None) /hpf 09/05/20 09/05/20 09/05/20 Range/Units 01:29 06:20 06:40 RDW (11.5-15.5) % Lymphocytes # (1.0-4.8) k/uL ESR 35 H (0-20) mm/hr Sodium (137-145) mmol/L Chloride (98-107) mmol/L Carbon Dioxide (22-30) mmol/L BUN (7-17) mg/dL Creatinine (0.52-1.04) mg/dL Glucose (74-99) mg/dL Plasma Lactic Acid Isra (0.7-2.0) mmol/L Magnesium (1.6-2.3) mg/dL C-Reactive Protein 2.4 H (<1.0) mg/dL Total Protein (6.3-8.2) g/dL Urine Protein 2+ H (Negative) Amorphous Sediment Few H (None) /hpf Urine Bacteria Rare H (None) /hpf Thrombosis Risk Factor Assmnt - Choose All That Apply Any of the Below Risk Factors Present?: Yes Each Factor Represents 1 point: Obesity (BMI >25) Other Risk Factors: Yes Each Risk Factor Represents 3 Points: Age 75 years or older Other congenital or acquired thrombophilia - If yes, enter type in comment: No Thrombosis Risk Factor Assessment Total Risk Factor Score: 4 Thrombosis Risk Factor Assessment Level: Moderate Risk
[2020-09-05] MEDS: DAPTOmycin 500 MG in SODIUM CHLORIDE 0.9% 50 ML IVPB SCH (19:44)
[2020-09-05] MEDS: traMADol 50 MG TAB PO SCH ×2 (19:44→23:18)
[2020-09-05] MEDS: ENOXAPARIN 40 MG/0.4 ML SYRINGE SQ SCH (19:45)
[2020-09-05] MEDS: CYCLOBENZAPRINE 5 MG TAB PO SCH (19:45)
[2020-09-05] MEDS: amLODIPine 5 MG TAB PO SCH (19:46)
[2020-09-05] MEDS: SODIUM CHLORIDE 0.9% 1,000 ML IV SCH (19:59)
[2020-09-05 20:54] LABS: Glucose,Whole Blood 103 mg/dL (75-99)
[2020-09-05] MEDS ORDERED: ATORVASTATIN 10 MG TAB PO SCH (21:00)
[2020-09-05] MEDS: MORPHINE SULFATE 2 MG/ML SYRINGE IVP PRN (23:20)
[2020-09-06] MEDS: traMADol 50 MG TAB PO SCH ×3 (00:23→12:52)
[2020-09-06] MEDS: MORPHINE SULFATE 2 MG/ML SYRINGE IVP PRN ×2 (01:35→05:28)
[2020-09-06] MEDS: SODIUM CHLORIDE 0.9% 1,000 ML IV SCH ×3 (01:38→15:48)
[2020-09-06] MEDS ORDERED: VANCOMYCIN 1,500 MG in SODIUM CHLORIDE 0.9% 250 ML IVPB ONE (06:00)
[2020-09-06 06:53] LABS: Glucose,Whole Blood 107 mg/dL (75-99)
[2020-09-06] MEDS: CYCLOBENZAPRINE 5 MG TAB PO SCH ×3 (07:32→21:06)
[2020-09-06] MEDS: METOPROLOL TARTRATE 12.5 MG TAB PO SCH (07:32)
[2020-09-06] MEDS: ENOXAPARIN 40 MG/0.4 ML SYRINGE SQ SCH (07:33)
[2020-09-06 08:17] LABS: African American GFR (CKD) 72 (>60 ml/min/1.73 sqM); Anion Gap 3 mmol/L; Blood Urea Nitrogen 9 mg/dL (7-17); Calcium 8.4 mg/dL (8.4-10.2); Carbon Dioxide 31 mmol/L (22-30); Chloride 102 mmol/L (98-107); Glucose 99 mg/dL (74-99); Non-African American GFR(CKD) 62 (>60 ml/min/1.73 sqM); Potassium 3.6 mmol/L (3.5-5.1); Sodium 136 mmol/L (137-145)
[2020-09-06 11:34] LABS: Glucose,Whole Blood 95 mg/dL (75-99)
--- NOTE | 2020-09-06 11:43 | P.PN ---
Subjective Progress Note Date: 09/06/20 Principal diagnosis: Intractable low back pain. This is an 80-year-old female who we're following regarding her intractable low back pain. The patient had been taking pain medication at home and had accidental overdose and was quite sedated yesterday. She is much more alert tod ay and family is present at bedside to help provide history. The patient has been receiving chiropractic type treatment for her low back which family states have been helpful in achieving at least 75% improvement of her low back pain. Family states that she had significant increase in her low back pain after EMS brought her into the hospital, thinking that possibly her back was twisted in transfer. She has not had any epidural steroid injections,only chiropractic treatment. She reports no loss of bowel or bladder. She has had some constipation recently. Objective - Vital Signs Vital signs: Vital Signs Temp 98.0 F 09/06/20 07:36 Pulse 93 09/06/20 07:36 Resp 18 09/06/20 07:36 BP 165/78 09/06/20 08:47 Pulse Ox 94 L 09/06/20 07:36 Intake & Output 09/05/20 09/06/20 09/06/20 18:59 06:59 18:59 Output Total 4600 1300 Balance -4600 -1300 Output: Urine 4600 1300 Straight 1300 Uretheral (Foster) 1300 1300 Other: Voiding Method Indwelling Catheter Indwelling Catheter - Exam This is a pleasant 80-year-old female in no acute distress. She is much more alert today and able to cooperate with exam. Exam of the thoracic and lumbar spine reveal no obvious deformity. She continues to have tenderness about the upper to mid lumbar spine with palpation as well as paraspinal musculature tenderness. She has difficulty with raising the right leg off the bed independently. She is able lift the left leg independently. There is no pain with passive knee and hip flexion today. Straight leg raise is negative today. She has full foot and ankle motion bilaterally. She has fairly good strength with dorsiflexion of the foot against resistance bilaterally. Pedal pulses are +2/4 bilaterally. Neurovascular status to the lower extremities is intact. - Labs CBC & Chem 7: 09/05/20 01:29 09/06/20 07:44 Labs: Abnormal Lab Results - Last 24 Hours (Table) 09/05/20 09/06/20 09/06/20 Range/Units 20:53 06:52 07:44 Sodium 136 L (137-145) mmol/L Carbon Dioxide 31 H (22-30) mmol/L POC Glucose (mg/dL) 103 H 107 H (75-99) mg/dL Microbiology - Last 24 Hours (Table) 09/05/20 06:05 Blood Culture - Preliminary Blood No Growth after 24 hours 09/05/20 06:20 Blood Culture - Preliminary Blood No Growth after 24 hours Assessment and Plan (1) Altered mental status Current Visit: Yes Status: Acute Code(s): R41.82 - ALTERED MENTAL STATUS, UNSPECIFIED SNOMED Code(s): 506107922 (2) Intractable low back pain Current Visit: Yes Status: Acute Code(s): M54.5 - LOW BACK PAIN SNOMED Code(s): 43297979318893393 (3) Lumbar radiculopathy, acute Current Visit: No Status: Acute Code(s): M54.16 - RADICULOPATHY, LUMBAR REGION SNOMED Code(s): 226193106 Plan: The clinical and radiographic findings are discussed the patient and and her family. We discussed surgical options including laminectomy/discectomy as well as conservative treatment with epidural steroid injections. The family is adamant they do not want surgical intervention at this time. They would like to return to the [facility] treatment. I recommend that she try an epidural during her stay and discuss the possibility of refrain from chiropractic treatments after the epidural. Family continues to state that she improved significantly with chiropractic treatment and will most likely follow-up with the chiropractic doctor. I will consult pain management to discuss possible epidural steroid injection while she is here. She is to follow-up with Dr. Mercer in 3 weeks for reevaluation.
--- NOTE | 2020-09-06 12:21 | P.PN ---
Subjective Progress Note Date: 09/06/20 The patient is seen at bedside and feels about the same. Continues to have lower back pain. Regarding her mentation it has improved. She is accompanied by her family members (daughters and son). Patient stated she has been having lower back pain for the past 6 month and felt having right leg weakness. She denied any urinary incontinence. She has been having constipation but has been on pain medication. Denies bowel incontinence. She denies any radiation of back pain or numbness or tingling of lower extremities. MRI of lumbar spine on 09/05/2020 is reported as multilevel spondylolisthesis and degenerative changes as detailed above. Most prominent spinal canal effacement of stenosis is noted at L2-L3 level. Finding correlate with CTA at study earlier today. In the body of the report it is reported to the patient L2-L3 levels with spondylolisthesis with broad-based posterior disc herniation, there is inferior extrusion component. There is moderate face after opacity bilaterally. There is effacement of the anterior and posterior lateral thecal sac sagittal image 18. Over L3-L4 shows moderate the facet after opacity and ligament hypertrophy effacing the posterior lateral thecal sac. Over the L4-L5 level shows moderate to advanced facet arthropathy bilaterally. As well as over the L5-S1 there shows moderate facet arthropathy bilaterally. Objective - Vital Signs Vital signs: Vital Signs Temp 98.0 F 09/06/20 07:36 Pulse 93 09/06/20 07:36 Resp 18 09/06/20 07:36 BP 165/78 09/06/20 08:47 Pulse Ox 94 L 09/06/20 07:36 Intake & Output 09/05/20 09/06/20 09/06/20 18:59 06:59 18:59 Output Total 4600 1300 Balance -4600 -1300 Output: Urine 4600 1300 Straight 1300 Uretheral (Foster) 1300 1300 Other: Voiding Method Indwelling Catheter Indwelling Catheter - Exam GENERAL: The patient is lying in bed and is mild to moderate. acute distress. NEUROLOGICAL: Higher mental function: The patient is awake, alert, oriented to self, place and time. She is able to name objects correctly (pen, watch and glasses). Patient is following simple commands. No aphasia and no neglect. Cranial nerves: The pupils are round, equal and reactive to light. Visual [place] are full to confrontation throughout. Extraocular movement is intact no nystagmus is noted. Facial sensation is normal to touch throughout. The facial strength is normal throughout. Hearing is mildly to moderately bilaterally to hand rub. Tongue is midline and moved [id number] without any difficulty. No dysarthria is noted. Shoulder shrug is normal bilaterally. Motor: Gait is deferred because of pain. The strength is right thigh is 4 to 4+, right knee extension/flexion is 3-4 and ankles dorsiflexion and plantar flexion is 4+ (right side is limited because of pain). Otherwise 5/5 throughout. Normal tone and bulk. Sensation: Sensation is normal to touch throughout. Reflexes (right/left): 2+ in uppers while patellar are 0+ bilaterally (had previous surgery of both knees) and right ankle is 1+ while left is 1-2+. Plantars are downgoing bilaterally. - Labs CBC & Chem 7: 09/05/20 01:29 09/06/20 07:44 Labs: Abnormal Lab Results - Last 24 Hours (Table) 09/05/20 09/06/20 09/06/20 Range/Units 20:53 06:52 07:44 Sodium 136 L (137-145) mmol/L Carbon Dioxide 31 H (22-30) mmol/L POC Glucose (mg/dL) 103 H 107 H (75-99) mg/dL Microbiology - Last 24 Hours (Table) 09/05/20 06:05 Blood Culture - Preliminary Blood No Growth after 24 hours 09/05/20 06:20 Blood Culture - Preliminary Blood No Growth after 24 hours Assessment and Plan Assessment: * Altered mental status: Possibly septic (possibly diverticulitis from imaging (with elevated CRP, ESR, plasma lactic vein) and component from medication effect (Opiates)--mentation improved * Lumbosacral radiculopathy (from history seem left). * Lumbosacral spndylosis (severe most noteable at L2-L3. But also moderate to severe over L3-L4, L4-L5 and L5-S1 level per imaging). * ?gas bubbles are noted within the spinal canal posteriorly at the level L 3 vertebral body of uncertain etiology that is reported on CT lumbar but none reported on MRI Lumbar spine. * Possibly diverticulitis * Reported memory impairments (cognitive memory impairement/dementia) * Chronic kidney insufficiency (unsure of baseline) * Diabetes mellitus * Hypertension * Hyperlipidemia Plan: * CT of the head is reported as no acute intracranial hemorrhage or midline shift. There is mild diffuse age-related cerebral atrophy and chronic small vessel ischemic changes noted. * CT lumbar spine is reported as diffuse and severe spondylosis throughout the lumbar spine most notably at the L2-L3, L4-L5 and L5-S1 level, similar to MRI study. As discussed above gas bubbles are noted within the spinal canal posteriorly at the level L 3 vertebral body of uncertain etiology. Is there any history of recent instrumentation? Again this finding is equivocal and uncertain significance etiology. An inflammatory or infectious etiology or an abscess collection in the area cannot be excluded based on the current study. Further workup is necessary. Magnetic resonance imaging of the lumbar spine with contrast administration is highly advise further assessment. Multilevel spinal stenosis. * CT pelvis is reported as osteoarthritis and degenerative changes at. No acute fracture or dislocation. Diverticulosis of the sigmoid colon that. Very minimal and subtotal stranding is noted within the mesentery surrounding the mid sigmoid colon possibly on the basis of vertebral artery acute div erticulitis. This is an equivocal finding which requires clinical correlation. Status post hysterectomy. * MRI of lumbar spine on 09/05/2020 is reported as multilevel spondylolisthesis and degenerative changes as detailed above. Most prominent spinal canal effacement of stenosis is noted at L2-L3 level. Finding correlate with CTA at study earlier today. In the body of the report it is reported to the patient L2-L3 levels with spondylolisthesis with broad-based posterior disc herniation, there is inferior extrusion component. There is moderate face after opacity bilaterally. There is effacement of the anterior and posterior lateral thecal sac sagittal image 18. Over L3-L4 shows moderate the facet after opacity and ligament hypertrophy effacing the posterior lateral thecal sac. Over the L4-L5 level shows moderate to advanced facet arthropathy bilaterally. As well as over the L5-S1 there shows moderate facet arthropathy bilaterally. * Please avoid any sedating of, opiates or narcotic that affects the patient mentation/neurological examination. * Orthopedic surgery team is consulted. Patient refused any surgical intervention and rather wants pain management. Per Orthopedic team they will attempt epidural injection. * Physical therapy and occupation therapy. * Regarding possible diverticulitis we'll defer further management/work-up to the primary team. * We'll defer the rest of the medical management to the primary team. * Patient might benefit from inpatient rehab vs subacute rehab. * Upon discharge recommend patient to follow-up with Neurologist with 2 weeks and to follow-up with Orthopedic team. The plan is discussed with the patient's nurse and her family member who are bedside (daughter). Neurology will sign off. Please reconsult if needed. Torrey Wilson MD Neuro-Hospitalist Time with Patient: Less than 30
[2020-09-06] MEDS: LOSARTAN 50 MG TAB PO SCH (12:52)
[2020-09-06] MEDS ORDERED: METOPROLOL TARTRATE 12.5 MG TAB PO STA (14:05)
[2020-09-06] MEDS ORDERED: NAPROXEN 250 MG TAB PO STA (14:08)
--- NOTE | 2020-09-06 14:12 | P.PN ---
Progress Note - Text Progress Note Date: 09/06/20 Chief Complaint: Back pain History of presenting complaint: This is a 80-year-old patient who follows with Dr. Minda arechiga. Patient presented to the ER. Presented with feeling weakness and not able to walk. She has been falling at home. The patient's unknown. She also fell about a week ago. Patient's had chronic low back pain. Her back pain has become much worse in the last 1 week. She thinks she has loss of bowel control in the last 3 days. Also found it difficult to stand up from the potty chair. No fever no chills. She did receive 4 mg of morphine in the ER. Rather sleepy but able to answer some questions. Consultation to neurology and orthopedic spine was done. Patient has a long-standing history of back pain. No fever no chills. Appetite fair. Admitted with acute on chronic low back pain. With spondylosis spinal stenosis. Empirically = IV vancomycin. Because of renal function changed to IV daptomycin. Today: Patient does not want any epidural injections. Pain is better. Family the bedside. Review of systems: Was done for constitutional, cardiovascular, GI, pulmonary. relevant finding as above Active Medications Acetaminophen (Acetaminophen Tab 325 Mg Tab) 650 mg PO Q6HR PRN PRN Reason: Mild Pain or Fever > 100.5 Amlodipine Besylate (Amlodipine 5 Mg Tab) 5 mg PO HS ON LICENSE OF [facility] Last Admin: 09/05/20 19:46 Dose: 5 mg Documented by: Cyclobenzaprine HCl (Cyclobenzaprine 5 Mg Tab) 5 mg PO TID ON LICENSE OF [facility] Last Admin: 09/06/20 07:32 Dose: 5 mg Documented by: Enoxaparin Sodium (Enoxaparin 40 Mg/0.4 Ml Syringe) 40 mg SQ DAILY ON LICENSE OF [facility] Last Admin: 09/06/20 07:33 Dose: 40 mg Documented by: Sodium Chloride (Saline 0.9%) 1,000 mls @ 100 mls/hr IV .Q10H ON LICENSE OF [facility] Last Admin: 09/06/20 01:38 Dose: 100 mls/hr Documented by: Daptomycin 500 mg/ Sodium (Chloride) 50 mls @ 100 mls/hr IVPB Q24H ON LICENSE OF [facility]; Protocol Last Admin: 09/05/20 19:44 Dose: 100 mls/hr Documented by: Losartan Potassium (Losartan 50 Mg Tab) 150 mg PO DAILY ON LICENSE OF [facility] Last Admin: 09/06/20 12:52 Dose: 150 mg Documented by: Metoprolol Tartrate (Metoprolol Tartrate 12.5 Mg Tab) 12.5 mg PO BID ON LICENSE OF [facility] Last Admin: 09/06/20 07:32 Dose: 12.5 mg Documented by: Morphine Sulfate (Morphine Sulfate 2 Mg/Ml Syringe) 2 mg IVP Q4H PRN PRN Reason: Pain/Discomfort Last Admin: 09/06/20 05:28 Dose: 2 mg Documented by: Naloxone HCl (Naloxone 0.4 Mg/Ml 1 Ml Vial) 0.2 mg IV Q2M PRN PRN Reason: Opioid Reversal Tramadol HCl (Tramadol 50 Mg Tab) 50 mg PO QID ON LICENSE OF [facility] Last Admin: 09/06/20 12:52 Dose: 50 mg Documented by: Past medical history to include: Diabetes, hypertension, hyperlipidemia, memory impairment, chronic kidney disease, hypothyroid Social history: Does not smoke or drink alcohol. Apparently lives alone. Family history: Dementia Physical examination: VITAL SIGNS: 98, 93, 18, 165/78, 94% room air GENERAL: BMI 32.6, laying in bed, more awake EYES: Pupils equal. Conjunctiva normal. NECK: JVD not raised; masses not palpable. HEART: First and second heart sounds are normal; no edema. LUNGS: Respiratory rate normal; clear to auscultation. ABDOMEN: Soft, nontender, liver spleen not palpable, no masses palpable. PSYCH: Lethargic but able to answer simple questionsl. NEUROLOGICAL: [Cranial nerves grossly intact; no facial asymmetry, patient not able to lift her legs off the bed. Reflexes quivocal INVESTIGATIONS, reviewed in the clinical context: September 06: Potassium 3.6 creatinine 0.87 WBC 6.1 hemoglobin 12.2 platelets 176 potassium 3.9 bicarb 35 BUN 21 and creatinine 1.41 Lactic acid 2.9 Coronavirus [PCR] not detected UA: Protein 2+ Chest x-ray film personally reviewed by me-no obvious infiltrate Lumbar spine computed tomography scan: Diffuse and severe spondylosis at multiple levels some bubbles noted in the spinal canal at the level of L3 vertebral body.. Multilevel spinal stenosis EKG tracing personally reviewed by me-normal sinus rhythm, nonspecific ST and T- wave changes CT brain: Mild diffuse 8 related cerebral atrophy and chronic small vessel ischemic changes Lumbar spine MRI: Multilevel spondylolisthesis and EKG changes most prominent spinal canal effacement of stenosis L2-L3 level. Assessment and plan: -This is a patient with a long-standing history of arthritis presents with falls at home now with worsening low back pain. No fever and chills have been reported. Patient is finding it difficult to see stand up and weak in the legs. Also got bowel incontinence. Concern about spinal cord involvement. Orthopedic spine's been consulted. Infection cannot be ruled out. Patient was started on vancomycin but because of renal function was changed to daptomycin. Patient has declined epidural injection offered by orthopedics. -Acute metabolic encephalopathy, possibly from having received morphine - discontinued. -Acute on chronic low back pain-uncontrolled DC morphine. Use heating pad. Flexeril 5 mg 3 times a day. Tylenol. Patient did not have been controlled with Ultram. add NSAIDs and [place] -Diabetes mellitus type 2, chronically on insulin Follow Accu-Cheks -Hyperlipidemia Continue Zocor -Essential hypertension, uncontrolled Norvasc. Increase Lopressor 25 mg twice daily -Acute kidney injury. Prerenal. Corrected with IV fluids. Decrease IV fluids DC IV morphine. DC Ultram. Add [place] 5/500, naproxen 250 mg 3 times a day. Cutback on IV fluids. Consult ID. Care was discussed with the patient's family the bedside.
[2020-09-06 16:26] LABS: Glucose,Whole Blood 120 mg/dL (75-99)
[2020-09-06] MEDS: HYDROcodone/APAP 5-325MG 1 EACH TAB PO SCH (17:39)
[2020-09-06] MEDS: DAPTOmycin 500 MG in SODIUM CHLORIDE 0.9% 50 ML IVPB SCH (18:57)
[2020-09-06 20:18] LABS: Glucose,Whole Blood 157 mg/dL (75-99)
[2020-09-06] MEDS ORDERED: METOPROLOL TARTRATE 50 MG TAB PO SCH (21:00)
[2020-09-06] MEDS: amLODIPine 5 MG TAB PO SCH (21:06)
[2020-09-06] MEDS: INSULIN ASPART (NovoLOG) 100 UNIT/ML VIAL SQ SCH (21:06)
[2020-09-06] MEDS: METOPROLOL TARTRATE 25 MG TAB PO SCH (21:06)
[2020-09-06] MEDS: NAPROXEN 250 MG TAB PO SCH (21:22)
[2020-09-07] MEDS: HYDROcodone/APAP 5-325MG 1 EACH TAB PO SCH ×5 (02:01→23:40)
[2020-09-07 06:56] LABS: Glucose,Whole Blood 124 mg/dL (75-99)
[2020-09-07] MEDS: INSULIN ASPART (NovoLOG) 100 UNIT/ML VIAL SQ SCH ×4 (07:01→22:09)
--- NOTE | 2020-09-07 07:20 | CONS ---
CONSULTATION DATE OF SERVICE: 09/06/2020 REASON FOR CONSULTATION: Evaluate for back pain/infection. HISTORY OF PRESENT ILLNESS: The patient is an 80-year-old female with a past medical history significant for chronic back pain for which the patient does follow up with chiropractor. The patient denies any injection to the lower back area. The patient presented to [facility] ER for evaluation of low back pain and it is getting worse with intensity almost 10/10 with some radiation at times to bilateral lower extremities, more likely the right lower leg. Patient is also complaining of weakness and inability to walk because of the pain. The patient denies having any fever or any chills. No history of any trauma. No injection to the lumbar back area. The patient was evaluated by the ER physician. On arrival to the ER, the patient was afebrile. No fever has been recorded. Subsequently the patient did have a normal white count. Did have sedimentation rate of 35. The patient did have a CT scan of the lumbosacral spine on presentation to the hospital, which shows diffuse spondylosis throughout the lumbar spine most notably at the L2-3, L4-5, L5-S1 level. There was a question of gas bubbles in the spinal column posteriorly with concern for infectious etiology. The patient has been treated empirically for the last 3 days with vancomycin that has been switched over to daptomycin. She did have blood culture that has been negative. The patient subsequently did have a MRI of the lumbosacral spine both with and without contrast which shows multilevel spondylolisthesis and degenerative changes with no mention of any diskitis or abscess. Infectious Disease was consulted today with concern for possible lumbar spine infection. Patient did mention overall improvement in her symptoms as far as pain is concerned. REVIEW OF SYSTEMS: Positive points have been mentioned in HPI. Rest of the systems are negative. PAST MEDICAL HISTORY: Diabetes mellitus, hypertension, hyperlipidemia, memory impairment, hypothyroidism. PAST SURGICAL HISTORY: Bladder surgery, breast surgery, cholecystectomy, partial hysterectomy, joint replacement. SOCIAL HISTORY: The patient denies smoking, drinking or drug use. FAMILY HISTORY: No pertinent findings noticed. ALLERGIES: No known drug allergies. MEDICATIONS: The patient is currently on daptomycin, Tylenol, [place], Norvasc, Flexeril, Lovenox, NovoLog, Cozaar, Lopressor, Narcan, naproxen, and IV fluid. PHYSICAL EXAMINATION: VITAL SIGNS: Blood pressure 183/74 with a pulse of 83, temperature 98.1, she is 93% on room air. GENERAL DESCRIPTION: Patient is an elderly female lying in bed in no distress. No tachypnea or accessory muscles of respiration use. HEENT: Examination shows no pallor or scleral icterus. Oral mucous membrane is dry. NECK: Trachea central, no thyromegaly. LUNGS: Unlabored breathing, clear to auscultation anteriorly. No wheeze or crackle. HEART: S1-S2, regular rate and rhythm. ABDOMEN: Soft, no tenderness. No guarding or rigidity. EXTREMITIES: No edema of the feet. SKIN: No rash or mass palpable. NEUROLOGICAL: Patient is awake, alert, oriented times three. Mood and affect normal. LABS: Hemoglobin is 12.2 with white count 6.1, BUN of 9, creatinine 0.97. Electrolytes have been normal. Liver enzymes are normal. CRP is 2.4. Sedimentation rate is 35. Urine is negative. [place] PCR was negative. CT report mentioned above. MRI did not show any evidence of diskitis. DIAGNOSTIC IMPRESSION AND PLAN: Patient with lower back pain and weakness, more likely related to her degenerative lumbosacral spine disease. Clinically not behaving as lumbar diskitis or paraspinal abscess in this patient who did not have any fever and did not have any elevated white count. Does not look toxic. Blood culture negative. MRI which is more specific for any diskitis, which was done with and without contrast, did not show any evidence of diskitis. PLAN: 1. Antibiotic can be safely discontinued. 2. Continue management of low back pain per Primary and Orthopedic Surgery. 3. We will follow on clinical condition and further adjust medication if needed. Thank you for this consultation. Will follow the patient along with you. MMODL / IJN: [id number] /
[2020-09-07] MEDS: ENOXAPARIN 40 MG/0.4 ML SYRINGE SQ SCH (07:25)
[2020-09-07] MEDS: LOSARTAN 50 MG TAB PO SCH (07:25)
[2020-09-07] MEDS: CYCLOBENZAPRINE 5 MG TAB PO SCH ×3 (07:26→20:49)
[2020-09-07] MEDS: NAPROXEN 250 MG TAB PO SCH ×3 (07:26→20:48)
[2020-09-07] MEDS: METOPROLOL TARTRATE 25 MG TAB PO SCH ×2 (07:26→20:49)
[2020-09-07] MEDS: SODIUM CHLORIDE 0.9% 1,000 ML IV SCH ×2 (07:27→20:52)
--- NOTE | 2020-09-07 11:01 | P.PN ---
Progress Note - Text Progress Note Date: 09/07/20 Orthopedic spine: History of present illness: Patient is a pleasant 80-year-old female who is seen and examined at the bedside for further evaluation of her lumbar spine. She continues to have intractable low back pain. She has pain that radiates over her anterior thighs and around her thighs towards the back and over her paraspinals. She's had difficulty with mobility due to her pain. She was seen and examined by pain management today who is planning for an epidural injection around noon tomorrow, 09/08/2020. Patient would like to exhaust conservative treatment options and try to avoid surgical intervention. Family had previously stated they want to avoid surgical intervention as well. She was also seen by infectious disease who decided to discontinue her antibiotic medication. He seems be seeing examined by medicine for treatment and evaluation of her other medical diagnoses including acute metabolic encephalopathy, diabetes mellitus type 2 chronically on insulin, hyperlipidemia, essential hypertension, and acute kidney injury which has corrected with IV fluids. Physical exam: Patient is awake, alert, and oriented 3 Vital signs stable Good chest excursion with deep inspiration and expiration She is currently lying flat in bed on a bedpan Dorsiflexion, plantarflexion, and extensor hallucis longus positive sustained bilaterally No signs or symptoms of DVT; no calf pain No pain with internal and external rotation of the hips bilaterally Neurovascularly intact Pertinent Studies: MRI of the lumbar spine taken on 09/05/2020: L2-3 spondylolisthesis with large broad-based posterior disc herniation with inferior extrusion and moderate facet arthropathy resulting in severe spinal canal stenosis and neural foraminal stenosis; L3 4 and moderate facet arthropathy, ligamentum flavum hypertrophy, and moderate broad-based disc protrusion with moderate central canal stenosis and bilateral neural foraminal stenosis or on the right than the left; L4-5 spon dylolisthesis, advanced facet arthropathy with central canal stenosis; L5-S1 moderate facet arthropathy bilaterally Assessment: L2-3 spondylolisthesis L2-3 severe spinal canal stenosis with large herniated nucleus pulposus with inferior extrusion L3-4 moderate spinal canal stenosis L4-5 spondylolisthesis L4-5 spinal canal stenosis Lumbar facet arthropathy Intractable low back pain Lower extremity radiculopathy Acute metabolic encephalopathy Diabetes mellitus type 2 chronically on insulin Hyperlipidemia Essential hypertension Acute kidney injury corrected with IV fluids Plan: 1. Patient has been discussed in detail with Dr. Harjeet Mercer. And we have reviewed her imaging. At this time patient her family elected to continue conservative treatment options. She is currently scheduled for an epidural injection tomorrow, 09/08/2020. She does have evidence of multilevel degenerative disc disease with spinal canal stenosis and spondylolisthesis. Most significantly, she has severe spinal canal stenosis with a large herniated nucleus pulposus and spondylolisthesis at L2-3. We did discuss she could benefit with surgical intervention focusing at this level of L2-3. She does have other significant changes of the level of the lumbar spine but given her advanced age we would not plan to proceed forward with a large lumbar compression fusion. Given the severity of her stenosis and her symptoms, we discussed she could benefit from an L2-3 laminectomy decompression with discectomy. If she were to fail conservative treatment options we would discuss the possibility of proceeding forward with surgical intervention if the patient does not feel her symptoms are adequately controlled. At this time, we will plan to have the patient follow-up in the outpatient setting for further evaluation. Patient may follow-up with Aneesh Vicente PA-C or Dr. Harjeet Mercer at [facility] in 2-3 weeks following discharge.
[2020-09-07 11:45] LABS: Glucose,Whole Blood 149 mg/dL (75-99)
[2020-09-07 12:35] LABS: Anion Gap 9.9 mmol/L (4.00-12.00); BUN/Creat Ratio 13.33 Ratio (12.00-20.00); Calcium 8.8 mg/dL (8.7-10.3); Carbon Dioxide 27.1 mmol/L (21.6-31.8); Magnesium 1.9 mg/dL (1.5-2.4); Non-African American GFR(CKD) 59.5 (60.0-200.0); Potassium 3.8 mmol/L (3.5-5.5)
--- NOTE | 2020-09-07 12:48 | PN ---
PROGRESS NOTE DATE OF SERVICE: 09/07/2020 REASON FOR FOLLOW UP: Intractable back pain and a question of infection. INTERVAL HISTORY: Patient is afebrile. The patient is feeling better. The patient's back pain has decreased in intensity. Denies having any chest pain, shortness of breath or cough. No abdominal pain. No weakness in the legs. PHYSICAL EXAMINATION: Blood pressure is 183/76, pulse of 79, temperature of 97.6. She is 93% on room air. General description is an elderly female up in the chair in no distress. Respiratory system: Unlabored breathing, clear to auscultation. Heart S1, S2. Regular rate and rhythm. Abdomen is soft, no tenderness. LABS: Blood culture remains to be negative. DIAGNOSTIC IMPRESSION AND PLAN: Patient with intractable back pain from advanced osteoarthritis. Clinically not behaving as diskitis. MRI was negative for any inflammatory changes. No fever or white count. Recommend no antibiotics. Continue supportive care. MMODL / IJN: [id number] /
[2020-09-07 13:26] VITALS: BMI 32.5
[2020-09-07 13:52] LABS: Basophils # (A) 0.03 X 10*3/uL (0.00-0.10); Basophils % (A) 0.7 %; Eosinophils # (A) 0.15 X 10*3/uL (0.04-0.35); Eosinophils % (A) 3.4 %; HCT 33.2 % (37.2-46.3); HGB 10.7 g/dL (12.0-15.0); MCH 28.2 pg (27.0-32.0); MCHC 32.2 g/dL (32.0-37.0); MCV 87.6 fL (80.0-97.0); Mean Platelet Volume 10.9 fL (9.5-12.2); Neutrophils # (A) 2.61 X 10*3/uL (1.80-7.70); Neutrophils % (A) 58.8 %; Platelet Count 92 X 10*3/uL (140-440); RBC 3.79 X 10*6/uL (4.10-5.20); RDW 14.6 % (11.5-14.5); WBC 4.44 X 10*3/uL (4.50-10.00)
--- NOTE | 2020-09-07 14:56 | P.PN ---
Progress Note - Text Progress Note Date: 09/07/20 Chief Complaint: Back pain History of presenting complaint: This is a 80-year-old patient who follows with Dr. Minda arechiga. Patient presented to the ER. Presented with feeling weakness and not able to walk. She has been falling at home. The patient's unknown. She also fell about a week ago. Patient's had chronic low back pain. Her back pain has become much worse in the last 1 week. She thinks she has loss of bowel control in the last 3 days. Also found it difficult to stand up from the potty chair. No fever no chills. She did receive 4 mg of morphine in the ER. Rather sleepy but able to answer some questions. Consultation to neurology and orthopedic spine was done. Patient has a long-standing history of back pain. No fever no chills. Appetite fair. Admitted with acute on chronic low back pain. With spondylosis spinal stenosis. Empirically = IV vancomycin. Because of renal function changed to IV daptomycin. Today: Sitting up in a chair. Lower back pain is worse in certain positions. Oral intake fair. By orthopedics patient to have epidural injection tomorrow. Seen by ID. Not for any further infectious workup. Antibiotics discontinued Review of systems: Was done for constitutional, cardiovascular, GI, pulmonary. relevant finding as above Active Medications Acetaminophen (Acetaminophen Tab 325 Mg Tab) 650 mg PO Q6HR PRN PRN Reason: Mild Pain or Fever > 100.5 Hydrocodone Bitart/Acetaminophen (Hydrocodone/Apap 5-325mg 1 Each Tab) 1 each PO Q6HR [facility] Last Admin: 09/07/20 12:18 Dose: 1 each Documented by: Amlodipine Besylate (Amlodipine 5 Mg Tab) 5 mg PO HS [facility] Last Admin: 09/06/20 21:06 Dose: 5 mg Documented by: Cyclobenzaprine HCl (Cyclobenzaprine 5 Mg Tab) 5 mg PO TID [facility] Last Admin: 09/07/20 07:26 Dose: 5 mg Documented by: Enoxaparin Sodium (Enoxaparin 40 Mg/0.4 Ml Syringe) 40 mg SQ DAILY [facility] Last Admin: 09/07/20 07:25 Dose: 40 mg Documented by: Sodium Chloride (Saline 0.9%) 1,000 mls @ 50 mls/hr IV .Q20H [facility] Last Admin: 09/07/20 07:27 Dose: Not Given Documented by: Insulin Aspart (Insulin Aspart (Novolog) 100 Unit/Ml Vial) 0 unit SQ ACHS [facility]; Protocol Last Admin: 09/07/20 12:18 Dose: 1 unit Documented by: Losartan Potassium (Losartan 50 Mg Tab) 150 mg PO DAILY [facility] Last Admin: 09/07/20 07:25 Dose: 150 mg Documented by: Metoprolol Tartrate (Metoprolol Tartrate 25 Mg Tab) 25 mg PO BID [facility] Last Admin: 09/07/20 07:26 Dose: 25 mg Documented by: Naloxone HCl (Naloxone 0.4 Mg/Ml 1 Ml Vial) 0.2 mg IV Q2M PRN PRN Reason: Opioid Reversal Naproxen (Naproxen 250 Mg Tab) 250 mg PO TID [facility] Last Admin: 09/07/20 07:26 Dose: 250 mg Documented by: Past medical history to include: Diabetes, hypertension, hyperlipidemia, memory impairment, chronic kidney disease, hypothyroid Social history: Does not smoke or drink alcohol. Apparently lives alone. Family history: Dementia Physical examination: VITAL SIGNS: 97.6, 66, 16, 1 62 x 68, 94% on room air GENERAL: Sitting up in a chair, awake EYES: Pupils equal. Conjunctiva normal. NECK: JVD not raised; masses not palpable. HEART: First and second heart sounds are normal; no edema. LUNGS: Respiratory rate normal; clear to auscultation. ABDOMEN: Soft, nontender, liver spleen not palpable, no masses palpable. PSYCH: AO - times three. Mood and affect normal NEUROLOGICAL: [Cranial nerves grossly intact; no facial asymmetry, patient not able to lift her legs off the bed. Reflexes quivocal INVESTIGATIONS, reviewed in the clinical context: September 07: WBC 4.4 hemoglobin 10.7 potassium 3.8 September 06: Potassium 3.6 creatinine 0.87 WBC 6.1 hemoglobin 12.2 platelets 176 potassium 3.9 bicarb 35 BUN 21 and creatinine 1.41 Lactic acid 2.9 Coronavirus [PCR] not detected UA: Protein 2+ Chest x-ray film personally reviewed by me-no obvious infiltrate Lumbar spine computed tomography scan: Diffuse and severe spondylosis at multiple levels some bubbles noted in the spinal canal at the level of L3 vertebral body.. Multilevel spinal stenosis EKG tracing personally reviewed by me-normal sinus rhythm, nonspecific ST and T- wave changes CT brain: Mild diffuse 8 related cerebral atrophy and chronic small vessel ischemic changes Lumbar spine MRI: Multilevel spondylolisthesis and EKG changes most prominent spinal canal effacement of stenosis L2-L3 level. Assessment and plan: -This is a patient with a long-standing history of arthritis presents with falls at home now with worsening low back pain. No fever and chills have been reported. Patient is finding it difficult to see stand up and weak in the legs. Also got bowel incontinence. Concern about spinal cord involvement. Orthopedic spine's been consulted. Infection cannot be ruled out. Patient was started on vancomycin but because of renal function was changed to daptomycin. Seen by Dr. Terry from ID. Infection ruled out. Antibiotics discontinued. -Acute metabolic encephalopathy, possibly from having received morphine - improved Morphine discontinued -Acute on chronic low back pain-uncontrolled DC morphine. Use heating pad. Flexeril 5 mg 3 times a day. Tylenol. Patient did not have been controlled with Ultram. add NSAIDs and [place] -Diabetes mellitus type 2, chronically on insulin Follow Accu-Cheks -Hyperlipidemia Continue Zocor -Essential hypertension, uncontrolled Increase Norvasc 5 mg twice a day. Lopressor 25 mg twice daily -Acute kidney injury. Prerenal.-Corrected Corrected with IV fluids. Decrease IV fluids Increase amlodipine to 10 mg daily. Antibiotics discontinued. Awaiting epidural injection.
--- NOTE | 2020-09-07 15:09 | P.PAINCN ---
History of Present Illness - Reason for Consult Consult date: 09/07/20 - History of Present Illness This is 80 years old female who was admitted [facility] secondary to altered mental status, and intractable low back pain, patient was overmedicated at home , she was trying to take pain medication and she was oversedated secondary to taking pain medication, Schink had ongoing pain in the low back area which is radiated to the lower extremity, she reported that intensity of the pain increased gradually since March 2020, the patient currently localized in the low back area with radiation to the buttock and lower extremity associated with weakness in her right lower extremity, is not able to ambulate secondary to the intensity of the pain, tried different pain medication at home without any benefit, and currently she is having weakness in her right leg, not able to ambulate secondary to severe pain Past Medical History Past Medical History: Diabetes Mellitus, Hyperlipidemia, Hypertension, Memory Impairment, Renal Disease, Thyroid Disorder History of Any Multi-Drug Resistant Organisms: None Reported Past Surgical History: Bladder Surgery, Breast Surgery, Cholecystectomy, Joint Replacement Additional Past Surgical History / Comment(s): bladder suspension, partial hysterectomy. Past Psychological History: No Psychological Hx Reported Smoking Status: Never smoker Past Alcohol Use History: None Reported Past Drug Use History: None Reported - Past Family History Mother Family Medical History: Dementia Brother(s) Family Medical History: Dementia, Myocardial Infarction ([place]) Medications and Allergies Home Medications Medication Instructions Recorded Confirmed Type Cyclobenzaprine [Flexeril] 10 mg PO BID PRN 09/05/20 09/05/20 History HYDROcodone/APAP 5-325MG [[place] 5] 0.5 - 1 tab PO Q4-6H PRN 09/05/20 09/05/20 History Insulin Glargine,Hum.rec.anlog 10 - 12 unit SQ DAILY 09/05/20 09/05/20 History [Lantus Solostar] Metoprolol Tartrate [Lopressor] 12.5 mg PO BID 09/05/20 09/05/20 History Olmesartan Medoxomil [Benicar] 40 mg PO DAILY 09/05/20 09/05/20 History Simvastatin [Zocor] 20 mg PO HS 09/05/20 09/05/20 History amLODIPine [Norvasc] 5 mg PO HS 09/05/20 09/05/20 History Allergies Allergy/AdvReac Type Severity Reaction Status Date / Time No Known Allergies Allergy Verified 09/05/20 10:36 Physical Exam Vitals: Vital Signs Temp Pulse Resp BP Pulse Ox 09/07/20 13:54 97.6 F 66 16 162/68 94 L 09/07/20 07:53 97.6 F 79 18 183/76 93 L 09/07/20 06:31 175/63 09/07/20 01:55 97.7 F 76 182/84 97 09/06/20 21:42 96 09/06/20 20:00 98.1 F 86 17 183/74 93 L Intake and Output 09/07/20 09/07/20 09/07/20 06:59 14:59 22:59 Output Total 900 Balance -900 Output: Urine 900 Other: Voiding Method Indwelling Catheter Weight 86.183 kg Physical Examinations : -Constitutiona : Cooperative , not in acute distress . -HEENT : nech : supple , no Lymphadenopathy , normal thyroid size . : eyes : no ptosis , no icterus, no photophobia . - neurologic : Cranial nerve II to XII intact , no focal neurological deffecit . -psychatric : alert , oriented X 3 , appropriate affect , intact judgment and insight . -Lymphatic : no Lymphadenopathy . - musculoskeltal : . Lumber spine moter stegnth lower extremities ,thigh and legs 2-3/5 Right side , 5/5 Left side deep tendon reflexes : decreased Knee Jerk Right , decreased ankle Jerk RIGHT lumber facet Loading Test =positive Right , positive Left Range of motion of the lumbar spine Flexion 30 degrees, extension 10 degrees strait leg raising test = positive at 30 degree Fabere test= positive Right , and positive LT . Sever tenderness over the Sacroiliac joint on the Right , and Left sides Multiple trigger points identified in the lumbar paraspinal muscles Results CBC & Chem 7: 09/07/20 06:55 09/07/20 06:55 Labs: Abnormal Lab Results - Last 24 Hours (Table) 09/06/20 09/06/20 09/07/20 Range/Units 16:24 20:16 06:54 WBC (4.50-10.00) X 10*3/uL RBC (4.10-5.20) X 10*6/uL Hgb (12.0-15.0) g/dL Hct (37.2-46.3) % RDW (11.5-14.5) % Plt Count (140-440) X 10*3/uL Plt Count Comment Immature Gran # (0.00-0.04) X 10*3/uL Est GFR (CKD-EPI)NonAf (60.0-200.0) Glucose (70-110) mg/dL POC Glucose (mg/dL) 120 H 157 H 124 H (75-99) mg/dL 09/07/20 09/07/20 09/07/20 Range/Units 06:55 06:55 11:44 WBC 4.44 L (4.50-10.00) X 10*3/uL RBC 3.79 L (4.10-5.20) X 10*6/uL Hgb 10.7 L (12.0-15.0) g/dL Hct 33.2 L (37.2-46.3) % RDW 14.6 H (11.5-14.5) % Plt Count 92 L (140-440) X 10*3/uL Plt Count Comment DECREASED A Immature Gran # 0.05 H (0.00-0.04) X 10*3/uL Est GFR (CKD-EPI)NonAf 59.5 L (60.0-200.0) Glucose 121 H (70-110) mg/dL POC Glucose (mg/dL) 149 H (75-99) mg/dL Microbiology - Last 24 Hours (Table) 09/05/20 06:20 Blood Culture - Preliminary Blood No Growth after 48 hours 09/05/20 06:05 Blood Culture - Preliminary Blood No Growth after 48 hours Comments: MRI of the lumbar spine= L2-3 spinal stenosis, multilevel lumbar spondylolisthesis, advanced facet joint arthropathy L3 4 L4 5 L5-S1 Assessment and Plan Plan: Assessment and plan=1-lumbar spinal stenosis. 2-lumbar spondylolisthesis. 3-lumbar degenerative disc disease. 4-lumbar spondylosis and lumbar facet arthropathy. 5-myofascial pain syndrome lumbar paraspinal muscles. she could benefit from lumbar epidural steroid injection L4 5 or L5-S1 and at the same time we can do trigger point injections lumbar paraspinal muscles Time with Patient: Greater than 30 PQRS Measure Charge Sheet PQRS Narrative: Do You Want the Pneumonia Vaccine Up to Date Vaccine AT THIS TIME? Blood Pressure [Left Arm] 162/68 Blood Pressure 157/71 Pain Intensity [Back] 7 Pain Intensity 6 Pain Scale Used Non Verbal Pain Indicator Scale Used Numeric (1 - 10) Home Medications: Ambulatory Orders Cyclobenzaprine [Flexeril] 10 mg PO BID PRN 09/05/20 HYDROcodone/APAP 5-325MG [[place] 5] 0.5 - 1 tab PO Q4-6H PRN 09/05/20 Insulin Glargine,Hum.rec.anlog [Lantus Solostar] 10 - 12 unit SQ DAILY 09/05/20 Metoprolol Tartrate [Lopressor] 12.5 mg PO BID 09/05/20 Olmesartan Medoxomil [Benicar] 40 mg PO DAILY 09/05/20 Simvastatin [Zocor] 20 mg PO HS 09/05/20 amLODIPine [Norvasc] 5 mg PO HS 09/05/20
[2020-09-07 16:36] LABS: Glucose,Whole Blood 123 mg/dL (75-99)
[2020-09-07] MEDS: amLODIPine 10 MG TAB PO SCH (20:49)
[2020-09-07 21:24] LABS: Glucose,Whole Blood 145 mg/dL (75-99)
[2020-09-08] MEDS: HYDROcodone/APAP 5-325MG 1 EACH TAB PO SCH ×4 (05:09→23:37)
[2020-09-08 06:51] LABS: Glucose,Whole Blood 117 mg/dL (75-99)
[2020-09-08] MEDS: INSULIN ASPART (NovoLOG) 100 UNIT/ML VIAL SQ SCH ×4 (07:13→20:54)
[2020-09-08] MEDS: ENOXAPARIN 40 MG/0.4 ML SYRINGE SQ SCH (07:16)
[2020-09-08] MEDS: NAPROXEN 250 MG TAB PO SCH ×3 (07:21→20:53)
[2020-09-08] MEDS: METOPROLOL TARTRATE 25 MG TAB PO SCH (07:23)
[2020-09-08] MEDS: LOSARTAN 50 MG TAB PO SCH (07:23)
[2020-09-08 09:29] LABS: Basophils % (A) 1 %; Eosinophils # (A) 0.1 k/uL (0-0.7); Eosinophils % (A) 2 %; HCT 35.5 % (34.0-46.0); HGB 12.3 gm/dL (11.4-16.0); Lymphocytes # (A) 0.9 k/uL (1.0-4.8); Lymphocytes % (A) 20 %; MCH 29.7 pg (25.0-35.0); MCHC 34.7 g/dL (31.0-37.0); MCV 85.5 fL (80.0-100.0); Mean Platelet Volume 6.6; Monocytes # (A) 0.4 k/uL (0-1.0); Monocytes % (A) 8 %; Neutrophils # (A) 3.3 k/uL (1.3-7.7); Neutrophils % (A) 68 %; Platelet Count 217 k/uL (150-450); RBC 4.15 m/uL (3.80-5.40); RDW 15.3 % (11.5-15.5); WBC 4.8 k/uL (3.8-10.6)
[2020-09-08] MEDS ORDERED: IV FLUID CONTINUATION 400 ML IV ONE (09:37)
[2020-09-08 09:45] LABS: Glucose,Whole Blood 128 mg/dL (75-99)
[2020-09-08] MEDS ORDERED: IOPAMIDOL M200 10 ML VIAL ONE (10:13)
[2020-09-08] MEDS ORDERED: ROPIVACAINE 5MG/ML 20ML VIAL ONE (10:13)
[2020-09-08] MEDS ORDERED: fentaNYL (PF) 50 MCG/ML 2 ML AMP ONE (10:13)
[2020-09-08] MEDS ORDERED: TRIAMCINOLONE ACETONIDE 40 MG/ML 1 ML VIAL ONE (10:13)
--- NOTE | 2020-09-08 10:43 | P.PCN ---
Date of Procedure: 09/08/20 Surgeon: Rae Aarujo Pathology: none sent Condition: stable Disposition: PACU Description of Procedure: PREOPERATIVE DIAGNOSIS: 1-Lumbar radiculopathy 2- Lumber Degenerative Disc Diseases. POSTOPERATIVE DIAGNOSIS: 1-Lumbar stenosis. 2-Lumbar Degenerative Disc Diseases 3-myofascial pain PROCEDURE 1. Lumbar epidural steroid injection under fluoroscopic guidance at the L4-5 level. 2. Lumbar epidurogram. 3-trigger point injection in the lumbar paravertebral musculature bilaterally ANESTHESIA: Local with 1% lidocaine; and IV moderate conscious sedation with fentanyl EBL: Minimal PROCEDURE INDICATION: The patient with low back pain and radiculitis symptoms unresponsive to conservative treatment. Fluoroscopy was used to optimize visualization of the needle placement and to maximize safety. PROCEDURE DESCRIPTION / TECHNIQUE: The patient was seen and identified in the preoperative area. Risks, benefits, complications including but not limited to infections ,bleeding ,allergic re action to the medications ,nerve damage and not complete pain relief , and alternatives were discussed with the patient. The patient agreed to proceed with the procedure and signed the consent. IV was started, and vital signs were stable. The patient was in severe distress due to her severe lower back pain preoperatively. She also has poorly controlled hypertension. Patient was taken to the OR and time out was completed. The patient was placed in the prone position on procedure table and a pillow was placed under the abdomen to reduce lumbar lordosis. The lumbosacral area was prepped and draped in the usual sterile fashion with ChloraPrep.Patient was closely monitored during the procedure. Conscious sedation was used during the procedure to decrease patients anxiety. Vital signs were monitered during the entire procedure. Using anterior-posterior fluoroscopy, the L4-5 interlaminar space was identified and the skin over this site was marked and then infiltrated with 1% lidocaine subcutaneously. Subsequently, a 20-gauge Tuohy epidural needle was inserted and advanced toward the epidural space using the Loss of resistance to air technique and guided by AP and lateral fluoroscopy. The correct needle position in the epidural space was verified with the injection of 1 mL of the water soluble contrast dye Omnipaque 180 contrast and observing an excellent epidurogram with the epidural spread of the dye, after negative aspiration for blood and CSF and in the absence of paresthesias. Again after negative aspiration, a 4 ml mixture containing 60 mg of Kenalog and 3.5 ml of preservative free Normal Saline, and 2 ml of preservative free ropivacaine 0.5% solution was injected and a washout of epidurogram was seen. Needle was withdrawn intact, skin was cleansed, and bandages were applied. patient tolerated procedure well and was transferred to PACU in stable condition.A copy of the needle placement picture was saved to the fluoroscopy machine. Trigger point injection: Skin was prepped with alcohol swabs and then 25-gauge 1-1/2 inch needle was used to go through the skin and into the paravertebral musculature on both sides of the spine and injected 1 mL of ropivacaine 0.5% at 3 different points on each side of the spine with total of 6 mils injected. COMPLICATIONS: None DISPOSITION / PLANS: The patient was placed in a supine position and transferred to the recovery area in a stable condition for observation. There was no evidence of lower extremity motor or sensory deficit after the procedure. Patient was discharged from the recovery room after meeting discharge criteria. Home discharge instructions were given to the patient by the staff. The patient was reexamined prior to discharge. The patient will schedule a follow up in the clinic in 2-4 weeks.
--- NOTE | 2020-09-08 10:54 | FL ---
Fluoroscopy HISTORY: Pain 5 seconds fluoroscopy time supplied to the referring clinician. 3 intraoperative C-arm images docume nt the procedure. See dictated report from anesthesia.
[2020-09-08] MEDS: CYCLOBENZAPRINE 5 MG TAB PO SCH ×3 (10:59→20:54)
[2020-09-08 11:22] LABS: Glucose,Whole Blood 117 mg/dL (75-99)
--- NOTE | 2020-09-08 16:21 | P.PN ---
Progress Note - Text Progress Note Date: 09/08/20 Chief Complaint: Back pain History of presenting complaint: This is a 80-year-old patient who follows with Dr. Minda arechiga. Patient presented to the ER. Presented with feeling weakness and not able to walk. She has been falling at home. The patient's unknown. She also fell about a week ago. Patient's had chronic low back pain. Her back pain has become much worse in the last 1 week. She thinks she has loss of bowel control in the last 3 days. Also found it difficult to stand up from the potty chair. No fever no chills. She did receive 4 mg of morphine in the ER. Rather sleepy but able to answer some questions. Consultation to neurology and orthopedic spine was done. Patient has a long-standing history of back pain. No fever no chills. Appetite fair. Admitted with acute on chronic low back pain. With spondylosis spinal stenosis. Empirically = IV vancomycin. Because of renal function changed to IV daptomycin. Seen by ID Dr. mann. Antibiotics discontinued. Infection not felt to be present. Today: Early today patient underwent epidural steroid injection and L3-L4. Laying in bed. Some pain is present. Oral intake fair. Spoke with director social welfare. Looking for inpatient rehab placement. Review of systems: Was done for constitutional, cardiovascular, GI, pulmonary. relevant finding as above Active Medications Acetaminophen (Acetaminophen Tab 325 Mg Tab) 650 mg PO Q6HR PRN PRN Reason: Mild Pain or Fever > 100.5 Hydrocodone Bitart/Acetaminophen (Hydrocodone/Apap 5-325mg 1 Each Tab) 1 each PO Q6HR [facility] Last Admin: 09/08/20 11:56 Dose: 1 each Documented by: Amlodipine Besylate (Amlodipine 10 Mg Tab) 10 mg PO HS [facility] Last Admin: 09/07/20 20:49 Dose: 10 mg Documented by: Cyclobenzaprine HCl (Cyclobenzaprine 5 Mg Tab) 5 mg PO TID [facility] Last Admin: 09/08/20 16:16 Dose: 5 mg Documented by: Enoxaparin Sodium (Enoxaparin 40 Mg/0.4 Ml Syringe) 40 mg SQ DAILY [facility] Last Admin: 09/08/20 07:16 Dose: Not Given Documented by: Sodium Chloride (Saline 0.9%) 1,000 mls @ 50 mls/hr IV .Q20H [facility] Last Admin: 09/07/20 20:52 Dose: 50 mls/hr Documented by: Insulin Aspart (Insulin Aspart (Novolog) 100 Unit/Ml Vial) 0 unit SQ ACHS [facility]; Protocol Last Admin: 09/08/20 11:34 Dose: Not Given Documented by: Losartan Potassium (Losartan 50 Mg Tab) 150 mg PO DAILY [facility] Last Admin: 09/08/20 07:23 Dose: 150 mg Documented by: Metoprolol Tartrate (Metoprolol Tartrate 25 Mg Tab) 25 mg PO BID [facility] Last Admin: 09/08/20 07:23 Dose: 25 mg Documented by: Naloxone HCl (Naloxone 0.4 Mg/Ml 1 Ml Vial) 0.2 mg IV Q2M PRN PRN Reason: Opioid Reversal Naproxen (Naproxen 250 Mg Tab) 250 mg PO TID [facility] Last Admin: 09/08/20 16:15 Dose: 250 mg Documented by: Past medical history to include: Diabetes, hypertension, hyperlipidemia, memory impairment, chronic kidney disease, hypothyroid Social history: Does not smoke or drink alcohol. Apparently lives alone. Family history: Dementia Physical examination: VITAL SIGNS: 97.9, 88, 18, 169.77, 94% room air GENERAL: Laying in bed, comfortable EYES: Pupils equal. Conjunctiva normal. NECK: JVD not raised; masses not palpable. HEART: First and second heart sounds are normal; no edema. LUNGS: Respiratory rate normal; clear to auscultation. ABDOMEN: Soft, nontender, liver spleen not palpable, no masses palpable. PSYCH: AO - times three. Mood and affect normal NEUROLOGICAL: [Cranial nerves grossly intact; no facial asymmetry, patient not able to lift her legs off the bed. Reflexes quivocal INVESTIGATIONS, reviewed in the clinical context: September 08: WBC 4.8 hemoglobin 12.3 September 07: WBC 4.4 hemoglobin 10.7 potassium 3.8 September 06: Potassium 3.6 creatinine 0.87 WBC 6.1 hemoglobin 12.2 platelets 176 potassium 3.9 bicarb 35 BUN 21 and creatinine 1.41 Lactic acid 2.9 Coronavirus [PCR] not detected UA: Protein 2+ Chest x-ray film personally reviewed by me-no obvious infiltrate Lumbar spine computed tomography scan: Diffuse and severe spondylosis at multiple levels some bubbles noted in the spinal canal at the level of L3 v ertebral body.. Multilevel spinal stenosis EKG tracing personally reviewed by me-normal sinus rhythm, nonspecific ST and T- wave changes CT brain: Mild diffuse 8 related cerebral atrophy and chronic small vessel ischemic changes Lumbar spine MRI: Multilevel spondylolisthesis and EKG changes most prominent spinal canal effacement of stenosis L2-L3 level. Assessment and plan: -This is a patient with a long-standing history of arthritis presents with falls at home now with worsening low back pain. No fever and chills have been reported. Patient is finding it difficult to see stand up and weak in the legs. Also got bowel incontinence. Concern about spinal cord involvement. Orthopedic spine's been consulted. Infection cannot be ruled out. Patient was started on vancomycin but because of renal function was changed to daptomycin. Seen by Dr. Terry from ID. Infection ruled out. Antibiotics discontinued. -Acute metabolic encephalopathy, possibly from having received morphine -impr royal Morphine discontinued -Acute on chronic low back pain-uncontrolled DC morphine. Use heating pad. Flexeril 5 mg 3 times a day. Tylenol. Patient did not have been controlled with Ultram. add NSAIDs and [place]. Status post steroid epidural injection L3/L4 by Dr. Jass Guerrero -Diabetes mellitus type 2, chronically on insulin Follow Accu-Cheks -Hyperlipidemia Continue Zocor -Essential hypertension, uncontrolled Increase Norvasc 5 mg twice a day. DC Lopressor. Labetalol 300 mg twice daily. Chlorthalidone 25 mg daily -Acute kidney injury. Prerenal.-Corrected Corrected with IV fluids. Decrease IV fluids DC Lopressor. Labetalol 300 mg twice daily. Chlorthalidone 25 mg daily. Awaiting acceptance at inpatient rehab
[2020-09-08 16:42] LABS: Glucose,Whole Blood 136 mg/dL (75-99)
[2020-09-08] MEDS: CHLORTHALIDONE 25 MG TAB PO SCH (17:16)
[2020-09-08 20:21] LABS: Glucose,Whole Blood 159 mg/dL (75-99)
[2020-09-08] MEDS: LABETALOL 100 MG TAB PO SCH (20:52)
[2020-09-08] MEDS: amLODIPine 10 MG TAB PO SCH (20:54)
[2020-09-09] MEDS: HYDROcodone/APAP 5-325MG 1 EACH TAB PO SCH ×2 (05:46→11:52)
[2020-09-09 06:37] LABS: Glucose,Whole Blood 137 mg/dL (75-99)
[2020-09-09 07:47] VITALS: RESP 18
[2020-09-09] MEDS: INSULIN ASPART (NovoLOG) 100 UNIT/ML VIAL SQ SCH ×3 (08:21→16:53)
[2020-09-09] MEDS: LOSARTAN 50 MG TAB PO SCH (08:22)
[2020-09-09] MEDS: CYCLOBENZAPRINE 5 MG TAB PO SCH ×2 (08:22→15:17)
[2020-09-09] MEDS: LABETALOL 100 MG TAB PO SCH (08:23)
[2020-09-09] MEDS: CHLORTHALIDONE 25 MG TAB PO SCH (08:23)
[2020-09-09] MEDS: ENOXAPARIN 40 MG/0.4 ML SYRINGE SQ SCH (08:23)
[2020-09-09] MEDS: NAPROXEN 250 MG TAB PO SCH ×2 (08:24→15:17)
[2020-09-09 11:41] LABS: Glucose,Whole Blood 138 mg/dL (75-99)
--- NOTE | 2020-09-09 14:44 | P.DS ---
Providers Date of admission: 09/05/20 18:20 Expected date of discharge: 09/09/20 Attending physician: Hay Johansen Consults: 09/05/20 05:16 Consult Physician Urgent Consulting Provider: Unique Mercer Consult Reason/Comments: intractable back pain Do you want consulting provider notified?: Yes 09/05/20 09:47 Consult Physician Routine Consulting Provider: Torrey Wilson Consult Reason/Comments: acute mental status changes Do you want consulting provider notified?: Yes 09/06/20 11:59 Consult Physician Routine Consulting Provider: Yana Terry Consult Reason/Comments: assess for lumber spine infection Do you want consulting provider notified?: Yes 09/08/20 10:27 Consult Physician Routine Consulting Provider: Rikki Vera Consult Reason/Comments: evaluate for inpatient rehab Do you want consulting provider notified?: Yes Primary care physician: Minda Arechiga [facility] Course: Chief Complaint: Back pain History of presenting complaint: This is a 80-year-old patient who follows with Dr. Minda arechiga. Patient presented to the ER. Presented with feeling weakness and not able to walk. She has been falling at home. She also fell about a week ago. Patient's had chronic low back pain. Her back pain has become much worse in the last 1 week. She thinks she has loss of bowel control in the last 3 days. Also found it difficult to stand up from the potty chair. No fever no chills. Patient has a long-standing history of back pain. No fever no chills. Appetite fair. Admitted with acute on chronic low back pain. MRI of the lumbar spine showed : spondylosis spinal stenosis. Empirically = IV vancomycin. Because of renal function changed to IV daptomycin. Seen by ID Dr. Terry Antibiotics discontinued. Infection not felt to be present. underwent epidural steroid injection and L3-L4. Seen by Dr. Mercer from orthopedic spine. Also by Dr. Wilson from neurology. Patient has declined any major surgical intervention. Today: Care was discussed with the patient and daughter the bedside. Pain is better controlled. Oral intake is fair. Spoke to the oncology social worker. Patient has been accepted at inpatient rehab. Discussion and discharge planning more than 35 minutes Consultation: Dr. Wilson from neurology Dr. Terry from ID Dr. Mercer from orthopedic spine Past medical history to include: Diabetes, hypertension, hyperlipidemia, memory impairment, chronic kidney disease, hypothyroid Social history: Does not smoke or drink alcohol. Apparently lives alone. Family history: Dementia Physical examination: VITAL SIGNS: 98, 71, 18, 150/68, 97% on room air GENERAL: Laying in bed, comfortable EYES: Pupils equal. Conjunctiva normal. NECK: JVD not raised; masses not palpable. HEART: First and second heart sounds are normal; no edema. LUNGS: Respiratory rate normal; clear to auscultation. ABDOMEN: Soft, nontender, liver spleen not palpable, no masses palpable. PSYCH: AO - times three. Mood and affect normal NEUROLOGICAL: [Cranial nerves grossly intact; no facial asymmetry, patient not able to lift her legs off the bed. INVESTIGATIONS, reviewed in the clinical context: September 08: WBC 4.8 hemoglobin 12.3 September 07: WBC 4.4 hemoglobin 10.7 potassium 3.8 September 06: Potassium 3.6 creatinine 0.87 WBC 6.1 hemoglobin 12.2 platelets 176 potassium 3.9 bicarb 35 BUN 21 and creatinine 1.41 Lactic acid 2.9 Coronavirus [PCR] not detected UA: Protein 2+ Chest x-ray film personally reviewed by me-no obvious infiltrate Lumbar spine computed tomography scan: Diffuse and severe spondylosis at multiple levels some bubbles noted in the spinal canal at the level of L3 vertebral body.. Multilevel spinal stenosis EKG tracing personally reviewed by me-normal sinus rhythm, nonspecific ST and T- wave changes CT brain: Mild diffuse 8 related cerebral atrophy and chronic small vessel ischemic changes Lumbar spine MRI: Multilevel spondylolisthesis and EKG changes most prominent spinal canal effacement of stenosis L2-L3 level. Assessment and plan: -This is a patient with a long-standing history of arthritis presents with falls at home now with worsening low back pain. No fever and chills have been reported. Patient is finding it difficult to see stand up and weak in the legs. Also got bowel incontinence. Concern about spinal cord involvement. Orthopedic spine's been consulted. Infection cannot be ruled out. Patient was started on vancomycin but because of renal function was changed to daptomycin. Seen by Dr. Terry from ID. Infection ruled out. Antibiotics discontinued. -Acute metabolic encephalopathy, possibly from having received morphine - improved Morphine discontinued -Acute on chronic low back pain-from spondylosis and spinal stenosis. DC morphine. Use heating pad. Flexeril 5 mg 3 times a day. Tylenol. Patient did not have been controlled with Ultram. NSAIDs and [place]. Status post steroid epidural injection L3/L4 by Dr. Chandler -Diabetes mellitus type 2, Follow Accu-Cheks. DC insulin. Diet controlled. Follow Accu-Cheks -Hyperlipidemia Continue Zocor -Essential hypertension, uncontrolled Increase Norvasc 5 mg twice a day. DC Lopressor. Labetalol 300 mg twice daily. Chlorthalidone 25 mg daily -Acute kidney injury. Prerenal.-Corrected Corrected with IV fluids. Disposition: F/[facility] Patient Condition at Discharge: Fair Plan - Discharge Summary Discharge Rx Participant: Yes New Discharge Prescriptions: New Cyclobenzaprine [Flexeril] 5 mg PO TID tab amLODIPine [Norvasc] 10 mg PO HS tab Labetalol [Trandate] 300 mg PO BID tab Chlorthalidone [Hygroton] 25 mg PO DAILY tab Naproxen [Naprosyn] 250 mg PO TID tab Continue Simvastatin [Zocor] 20 mg PO HS Olmesartan Medoxomil [Benicar] 40 mg PO DAILY Changed HYDROcodone/APAP 5-325MG [[place] 5-325] 1 tab PO Q4H PRN #0 PRN Reason: Pain Discontinued amLODIPine [Norvasc] 5 mg PO HS Metoprolol Tartrate [Lopressor] 12.5 mg PO BID Cyclobenzaprine [Flexeril] 10 mg PO BID PRN PRN Reason: Pain Insulin Glargine,Hum.rec.anlog [Lantus Solostar] 10 - 12 unit SQ DAILY Discharge Medication List Olmesartan Medoxomil [Benicar] 40 mg PO DAILY 09/05/20 [History] Simvastatin [Zocor] 20 mg PO HS 09/05/20 [History] Chlorthalidone [Hygroton] 25 mg PO DAILY tab 09/09/20 [Rx] Cyclobenzaprine [Flexeril] 5 mg PO TID tab 09/09/20 [Rx] HYDROcodone/APAP 5-325MG [[place] 5-325] 1 tab PO Q4H PRN #0 09/09/20 [Rx] Labetalol [Trandate] 300 mg PO BID tab 09/09/20 [Rx] Naproxen [Naprosyn] 250 mg PO TID tab 09/09/20 [Rx] amLODIPine [Norvasc] 10 mg PO HS tab 09/09/20 [Rx] Follow up Appointment(s)/Referral(s): Unique Mercer DO [Doctor of Osteopathic Medicine] - 2 Weeks (Patient may follow-up with Aneesh Vicente PA-C or Dr. Harjeet Mercer at [facility] in 2-3 weeks following discharge. ) Minda Arechiga DO [Primary Care Provider] - 1-2 days Discharge/Stand Alone Forms: [facility] Instructions
[2020-09-09 15:22] VITALS: BP 162/55; PULSE 61; TEMP 97.4
[2020-09-09 16:50] LABS: Glucose,Whole Blood 127 mg/dL (75-99)
== END 2020-09-09 17:32 | DRG 551 ==
LOC: EC 00:30 → 6NMEDSUR 05:15 → 4SSUR 07:11 → OBSVTOIN 18:20
PROVIDERS: ADMIT Hospitalist; ATTEND Hospitalist
DX: M48.061 Spinal stenosis, lumbar region without neurogenic claudication (principal); G93.41 Metabolic encephalopathy; N17.9 Acute kidney failure, unspecified; E11.22 Type 2 diabetes mellitus with diabetic chronic kidney disease; E78.5 Hyperlipidemia, unspecified; G89.29 Other chronic pain; I12.9 Hypertensive chronic kidney disease with stage 1 through stage 4 chronic kidney disease, or unspecified chronic kidney disease; R29.6 Repeated falls; R15.9 Full incontinence of feces; K57.30 Diverticulosis of large intestine without perforation or abscess without bleeding; K59.00 Constipation, unspecified; M43.16 Spondylolisthesis, lumbar region; M47.26 Other spondylosis with radiculopathy, lumbar region; E03.9 Hypothyroidism, unspecified; M51.16 Intervertebral disc disorders with radiculopathy, lumbar region; N18.9 Chronic kidney disease, unspecified; Z91.81 History of falling; Z20.822 Contact with and (suspected) exposure to COVID-19; Z82.0 Family history of epilepsy and other diseases of the nervous system; Z60.2 Problems related to living alone; Z82.49 Family history of ischemic heart disease and other diseases of the circulatory system; Z79.899 Other long term (current) drug therapy; Z90.711 Acquired absence of uterus with remaining cervical stump; Z90.49 Acquired absence of other specified parts of digestive tract; Z98.890 Other specified postprocedural states
CPT/HCPCS: 20552; 36415; 62323; 70450; 71045; 72131; 72158; 72192; 80048; 80053; 81001; 82140; 83605; 83735; 84484; 85025; 85652; 86140; 87040; 87635; 93005; 96361; 96365; 96367; 96375; 99285

== ENCOUNTER 2020-10-07 08:51 | Inpatient (IN) | payer MEDICARE ==
[2020-10-07] MEDS ORDERED: MORPHINE SULFATE 4 MG/ML SYRINGE IV STA (09:05)
[2020-10-07] MEDS ORDERED: PANTOPRAZOLE 40 MG/10 ML VIAL IVP STA (09:05)
[2020-10-07] MEDS ORDERED: SODIUM CHLORIDE 0.9% 500 ML 500 ML IV STA (09:05)
--- NOTE | 2020-10-07 09:12 | ED ---
General Adult HPI - General Chief complaint: Abdominal Pain Stated complaint: abd pain, vomiting Time Seen by Provider: 10/07/20 08:57 Source: patient, RN notes reviewed, old records reviewed Mode of arrival: ambulatory Limitations: no limitations - History of Present Illness Initial comments: 80-year-old female presenting for evaluation of upper abdominal pain. Pain is been present for the past 4 days. She has had some nausea and several episodes of vomiting. No diarrhea. She states her last bowel movement was greater than 3 days ago. She has been passing gas. She was sent from the urgent care for further evaluation and treatment. Describes the pain is bilateral upper abdominal pain with some abdominal distention and a sensation of bloating. - Related Data Home Medications Medication Instructions Recorded Confirmed Olmesartan Medoxomil [Benicar] 40 mg PO DAILY 09/05/20 09/05/20 Simvastatin [Zocor] 20 mg PO HS 09/05/20 09/05/20 Previous Rx's Medication Instructions Recorded Chlorthalidone [Hygroton] 25 mg PO DAILY tab 09/09/20 Cyclobenzaprine [Flexeril] 5 mg PO TID tab 09/09/20 HYDROcodone/APAP 5-325MG [[place] 1 tab PO Q4H PRN #0 09/09/20 5-325] Labetalol [Trandate] 300 mg PO BID tab 09/09/20 Naproxen [Naprosyn] 250 mg PO TID tab 09/09/20 amLODIPine [Norvasc] 10 mg PO HS tab 09/09/20 Allergies Allergy/AdvReac Type Severity Reaction Status Date / Time No Known Allergies Allergy Verified 10/07/20 08:53 Review of Systems ROS Statement: Those systems with pertinent positive or pertinent negative responses have been documented in the HPI. ROS Other: All systems not noted in ROS Statement are negative. Past Medical History Past Medical History: Diabetes Mellitus, Hyperlipidemia, Hypertension, Memory Impairment, Renal Disease, Thyroid Disorder History of Any Multi-Drug Resistant Organisms: None Reported Past Surgical History: Bladder Surgery, Breast Surgery, Cholecystectomy, Joint Replacement Additional Past Surgical History / Comment(s): bladder suspension, partial hysterectomy. Past Psychological History: No Psychological Hx Reported Smoking Status: Never smoker Past Alcohol Use History: None Reported Past Drug Use History: None Reported - Past Family History Mother Family Medical History: Dementia Brother(s) Family Medical History: Dementia, Myocardial Infarction ([place]) General Exam Limitations: no limitations General appearance: alert, in no apparent distress Head exam: Present: atraumatic, normocephalic Eye exam: Present: normal appearance, PERRL ENT exam: Present: normal exam Neck exam: Present: normal inspection. Absent: tenderness, meningismus Respiratory exam: Present: normal lung sounds bilaterally. Absent: respiratory distress, wheezes Cardiovascular Exam: Present: regular rate, normal rhythm GI/Abdominal exam: Present: distended, tenderness (Upper abdominal and epigastric). Absent: guarding, rebound Extremities exam: Present: normal inspection, normal capillary refill. Absent: pedal edema, calf tenderness Neurological exam: Present: alert, oriented X3, CN II-XII intact. Absent: motor sensory deficit Psychiatric exam: Present: normal affect, normal mood Skin exam: Present: warm, dry, intact. Absent: cyanosis, diaphoretic Course Vital Signs 10/07/20 10/07/20 08:53 10:32 Temperature 97.5 F L Pulse Rate 104 H 71 Respiratory 18 17 Rate Blood Pressure 122/84 122/96 O2 Sat by Pulse 96 Oximetry EKG Findings - EKG Comments: EKG Findings:: EKG: Atrial fibrillation, left axis, LVH, rate of 83, QRS duration 96, T4 51, there is some visualized sinus activity to suggest sinus rhythm is regular rhythm no ST segment elevation. Medical Decision Making - Medical Decision Making 78-year-old female presenting with upper abdominal pain and vomiting. She last had a bowel movement about 3 days ago but states she is passing gas. X-ray performed which does show an ileus. Patient is taking for CT and pelvis which also shows an ileus, no bowel obstruction at this time. Patient has normal CBC, hyponatremia 125, mild lactic acid 2.1 which is likely from dehydration. She is given several doses of it pain medication and IV fluids in the emergency department. She will be admitted for treatment of hyponatremia, dehydration, and ileus. Case discussed with Dr. Johansen who will admit. - Lab Data Result diagrams: 10/07/20 09:14 10/07/20 09:14 Lab Results 10/07/20 10/07/20 10/07/20 Range/Units 09:14 09:14 09:14 WBC 8.0 (3.8-10.6) k/uL RBC 4.23 (3.80-5.40) m/uL Hgb 12.7 (11.4-16.0) gm/dL Hct 37.6 (34.0-46.0) % MCV 88.8 (80.0-100.0) fL MCH 30.0 (25.0-35.0) pg MCHC 33.8 (31.0-37.0) g/dL RDW 13.8 (11.5-15.5) % Plt Count 286 (150-450) k/uL MPV 7.2 Neutrophils % 69 % Lymphocytes % 21 % Monocytes % 7 % Eosinophils % 1 % Basophils % 1 % Neutrophils # 5.6 (1.3-7.7) k/uL Lymphocytes # 1.7 (1.0-4.8) k/uL Monocytes # 0.6 (0-1.0) k/uL Eosinophils # 0.1 (0-0.7) k/uL Basophils # 0.1 (0-0.2) k/uL PT 10.3 (9.0-12.0) sec INR 1.0 (<1.2) APTT 22.3 (22.0-30.0) sec Sodium 125 L (137-145) mmol/L Potassium 3.9 (3.5-5.1) mmol/L Chloride 88 L (98-107) mmol/L Carbon Dioxide 29 (22-30) mmol/L Anion Gap 8 mmol/L BUN 24 H (7-17) mg/dL Creatinine 1.00 (0.52-1.04) mg/dL Est GFR (CKD-EPI)AfAm 61 (>60 ml/min/1.73 sqM) Est GFR (CKD-EPI)NonAf 53 (>60 ml/min/1.73 sqM) Glucose 169 H (74-99) mg/dL Plasma Lactic Acid Isra (0.7-2.0) mmol/L Calcium 10.9 H (8.4-10.2) mg/dL Total Bilirubin 0.4 (0.2-1.3) mg/dL AST 27 (14-36) U/L ALT 16 (4-34) U/L Alkaline Phosphatase 63 (38-126) U/L Troponin I (0.000-0.034) ng/mL Total Protein 6.9 (6.3-8.2) g/dL Albumin 4.1 (3.5-5.0) g/dL Amylase 82 (30-110) U/L Lipase 191 (23-300) U/L 10/07/20 10/07/20 Range/Units 09:14 09:14 WBC (3.8-10.6) k/uL RBC (3.80-5.40) m/uL Hgb (11.4-16.0) gm/dL Hct (34.0-46.0) % MCV (80.0-100.0) fL MCH (25.0-35.0) pg MCHC (31.0-37.0) g/dL RDW (11.5-15.5) % Plt Count (150-450) k/uL MPV Neutrophils % % Lymphocytes % % Monocytes % % Eosinophils % % Basophils % % Neutrophils # (1.3-7.7) k/uL Lymphocytes # (1.0-4.8) k/uL Monocytes # (0-1.0) k/uL Eosinophils # (0-0.7) k/uL Basophils # (0-0.2) k/uL PT (9.0-12.0) sec INR (<1.2) APTT (22.0-30.0) sec Sodium (137-145) mmol/L Potassium (3.5-5.1) mmol/L Chloride (98-107) mmol/L Carbon Dioxide (22-30) mmol/L Anion Gap mmol/L BUN (7-17) mg/dL Creatinine (0.52-1.04) mg/dL Est GFR (CKD-EPI)AfAm (>60 ml/min/1.73 sqM) Est GFR (CKD-EPI)NonAf (>60 ml/min/1.73 sqM) Glucose (74-99) mg/dL Plasma Lactic Acid Isra 2.1 H* (0.7-2.0) mmol/L Calcium (8.4-10.2) mg/dL Total Bilirubin (0.2-1.3) mg/dL AST (14-36) U/L ALT (4-34) U/L Alkaline Phosphatase (38-126) U/L Troponin I <0.012 (0.000-0.034) ng/mL Total Protein (6.3-8.2) g/dL Albumin (3.5-5.0) g/dL Amylase (30-110) U/L Lipase (23-300) U/L Disposition Clinical Impression: Dehydration, Ileus, Hyponatremia Disposition: ADMITTED IP TO THIS [facility] Condition: Stable Is patient prescribed a controlled substance at d/c from ED?: No Referrals: Minda Prater DO [Primary Care Provider] - 1-2 days Decision to Admit Reason: Admit from EC Decision Date: 10/07/20 Decision Time: 10:52
[2020-10-07 09:38] LABS: Basophils # (A) 0.1 k/uL (0-0.2); Basophils % (A) 1 %; Eosinophils # (A) 0.1 k/uL (0-0.7); Eosinophils % (A) 1 %; HCT 37.6 % (34.0-46.0); HGB 12.7 gm/dL (11.4-16.0); Lymphocytes # (A) 1.7 k/uL (1.0-4.8); Lymphocytes % (A) 21 %; MCHC 33.8 g/dL (31.0-37.0); MCV 88.8 fL (80.0-100.0); Mean Platelet Volume 7.2; Monocytes # (A) 0.6 k/uL (0-1.0); Monocytes % (A) 7 %; Neutrophils # (A) 5.6 k/uL (1.3-7.7); Neutrophils % (A) 69 %; Platelet Count 286 k/uL (150-450); RBC 4.23 m/uL (3.80-5.40); RDW 13.8 % (11.5-15.5)
[2020-10-07 09:49] LABS: Albumin 4.1 g/dL (3.5-5.0); Calcium 10.9 mg/dL (8.4-10.2); Potassium 3.9 mmol/L (3.5-5.1); Total Bilirubin 0.4 mg/dL (0.2-1.3); Total Protein 6.9 g/dL (6.3-8.2)
[2020-10-07 09:55] LABS: Partial Thromboplastin Time 22.3 sec (22.0-30.0); Prothrombin Time 10.3 sec (9.0-12.0)
--- NOTE | 2020-10-07 09:58 | XR ---
KUB HISTORY: Abdominal pain Frontal KUB and 2 images, no comparisons There are air-fluid levels without bowel distention. Postop changes are noted within the abdomen. Win g bases are clear. There is no pneumoperitoneum. Degenerative disc changes are present in the visuali zed spine. IMPRESSION: Correlate for possible underlying ileus or enteritis.
--- NOTE | 2020-10-07 10:34 | CT ---
EXAMINATION TYPE: CT abdomen pelvis wo con DATE OF EXAM: 10/07/2020 COMPARISON: None HISTORY: Abd pain, nausea and vomiting CT DLP: 771 mGycm Examination of the solid and hollow viscera is limited given the lack of contrast. FINDINGS: LUNG BASES: No evidence for nodule. No evidence for infiltrate. LIVER/GB: The gallbladder is unremarkable. No space-occupying hepatic lesion. PANCREAS: There is mild stranding adjacent to the pancreatic head could reflect mild acute pancreatit is. Correlate with amylase and lipase. Additional possibility is that of the adjacent duodenitis. SPLEEN: No evidence for splenomegaly. No intrasplenic lesions seen. ADRENALS: No adrenal nodules identified. No evidence for thickening. KIDNEYS: No evidence for renal mass. No nephrolithiasis. No hydronephrosis. BOWEL: Appendix has a normal appearance. No evidence of bowel obstruction. No inflammatory process. F luid distended small and large bowel may reflect mild ileus. Lymph nodes: No evidence for adenopathy greater than 1 cm. Abdominal aorta: Atheromatous changes seen. No evidence for aneurysm. Genital organs: No significant abnormality. Other: No significant abnormality. IMPRESSION: 1.There is mild stranding adjacent to the pancreatic head could reflect mild acute pancreatitis. Kinjal elate with amylase and lipase. Additional possibility is that of the adjacent duodenitis. 2. Fluid distended small and large bowel may reflect mild ileus.
[2020-10-07] MEDS ORDERED: MORPHINE SULFATE 4 MG/ML SYRINGE IVP STA (10:47)
[2020-10-07] MEDS ORDERED: MORPHINE SULFATE 4 MG/ML SYRINGE IV PRN (10:47)
[2020-10-07] MEDS ORDERED: NALOXONE 0.4 MG/ML 1 ML VIAL IV PRN (10:47)
[2020-10-07] MEDS ORDERED: ONDANSETRON 4 MG/2 ML VIAL IVP PRN (10:47)
[2020-10-07] MEDS ORDERED: ACETAMINOPHEN TAB 325 MG TAB PO PRN (10:47)
[2020-10-07] MEDS: SODIUM CHLORIDE 0.9% 1,000 ML IV SCH (11:06)
--- NOTE | 2020-10-07 13:57 | P.GSCN ---
History of Present Illness Consult date: 10/07/20 History of present illness: CHIEF COMPLAINT: Abdominal pain with nausea and vomiting HISTORY OF PRESENT ILLNESS: This is a 80-year-old female with past medical history of diabetes mellitus, hyperlipidemia, hypertension and hypothyroidism. Past surgical history includes bladder suspension, cholecystectomy and partial hysterectomy. Patient presents to the emergency room with complaints of upper abdominal pain mostly in the epigastric area for the last 4 days. She also has been having nausea and vomiting. Her vomiting had worsened yesterday and that's what brought her into the emergency room. She does report eating a chicken dinner with noodles the evening that her abdominal pain started. She tried to take Tums with minimal help. She reports having a decreased appetite. And more of a pressure type pain discomfort in the epigastric area. She's not had any symptoms like this in the past. Her last bowel movement was about 3 days ago. She had a computed tomography scan of the abdomen and pelvis without contrast that showed mild stranding adjacent to the pancreatic head could reflect mild acute pancreatitis. Additional possibility is that of the adjacent duodenitis. Fluid distending small and large bowel may reflect mild ileus. Patient denies any fever chills or sweats. Patient denies any blood in her stools or emesis. PAST MEDICAL HISTORY: See list. PAST SURGICAL HISTORY: See list. MEDICATIONS: See list. ALLERGIES: See list. SOCIAL HISTORY: No illicit drug use. REVIEW OF SYSTEMS: CONSTITUTIONAL: Denies fever or chills. HEENT: Denies blurred vision, vision changes, or eye pain. Denies hemoptysis ENDOCRINE: Denies heat or cold intolerance. CARDIOVASCULAR: Denies chest pain or pressure. RESPIRATORY: No shortness of breath. GASTROINTESTINAL: Please refer to HPI NEURO: Denies history of seizures. PSYCH: No depression or suicidal ideation HEMATOLOGIC: Denies bleeding disorders. LYMPHATIC: The patient denies any lumps and bumps around the neck. GENITOURINARY: Denies any blood in urine or increased urinary frequency. MUSCULOSKELETAL: Denies myalgias. Denies joint swelling. Denies decreased range of motion beyond patients baseline. SKIN: Denies pruitis. Denies rash. PHYSICAL EXAM: VITAL SIGNS: Reviewed GENERAL: Well-developed in no acute distress. HEENT: No sclera icterus. Extraocular movements grossly intact. Moist buccal mucosa. Head is atraumatic, normocephalic. Hears conversational speech. No nasal drainage. NECK: Supple without lymphadenopathy. CHEST: Non-labored respirations and equal bilateral excursions. CARDIOVASCULAR: Palpable 2+ radial pulses. ABDOMEN: Soft. Nondistended. Tenderness in epigastric area MUSCULOSKELETAL: No clubbing or cyanosis. NEUROLOGIC: No focal or lateralizing signs. Cranial nerves II through XII grossly intact. PSYCH: Appropriate affect. Alert and oriented to person, place and time. SKIN: Well perfused. Good skin turgor. LABORATORY DATA: WBC 8.0 hemoglobin 12.7 platelets 286 INR 1.0 sodium 125 potassium is 3.9 creatinine 1.00 BUN 24 glucose 169 lactic acid 2.1 down to 1.5 Total bilirubin 0.4 AST 27 ALT 16 alk phos 63 troponin is negative lipase 191 amylase 82 IMAGING: Computed tomography scan of the abdomen and pelvis without contrast that showed mild stranding adjacent to the pancreatic head could reflect mild acute pancreatitis. Additional possibility is that of the adjacent duodenitis. Fluid distending small and large bowel may reflect mild ileus. ASSESSMENT: 1. Epigastric abdominal pain with nausea and vomiting 2. Ileus 3. Mild pancreatitis 4. Hyponatremia 5. Dehydration PLAN: -Start patient on clear liquids -Continue IV fluids -Continue antiemetics -Medical service to manage hyponatremia -Continue pain medication as needed -We'll continue to monitor -Further recommendations forthcoming Thank you for this consultation Physician Utility Lineman note has been reviewed by physician. Signing provider agrees with the documented findings, assessment, and plan of care. Past Medical History Past Medical History: Diabetes Mellitus, Hyperlipidemia, Hypertension, Memory Impairment, Renal Disease, Thyroid Disorder History of Any Multi-Drug Resistant Organisms: None Reported Past Surgical History: Bladder Surgery, Breast Surgery, Cholecystectomy, Joint Replacement Additional Past Surgical History / Comment(s): bladder suspension, partial hysterectomy. double mastectomy Past Psychological History: No Psychological Hx Reported Smoking Status: Never smoker Past Alcohol Use History: None Reported Past Drug Use History: None Reported - Past Family History Mother Family Medical History: Dementia Brother(s) Family Medical History: Dementia, Myocardial Infarction ([place]) Medications and Allergies Home Medications Medication Instructions Recorded Confirmed Type Olmesartan Medoxomil [Benicar] 40 mg PO DAILY 09/05/20 10/07/20 History Simvastatin [Zocor] 20 mg PO HS 09/05/20 10/07/20 History Chlorthalidone [Hygroton] 25 mg PO DAILY tab 09/09/20 10/07/20 Rx HYDROcodone/APAP 5-325MG [[place] 1 tab PO Q4H PRN #0 09/09/20 10/07/20 Rx 5-325] Acetaminophen [Tylenol Arthritis] 650 mg PO Q8H PRN 10/07/20 10/07/20 History Aspirin EC [Ecotrin Low Dose] 81 mg PO DAILY 10/07/20 10/07/20 History Biotin 5 mg PO DAILY 10/07/20 10/07/20 History Cholecalciferol [Vitamin D3 (25 25 mcg PO DAILY 10/07/20 10/07/20 History Mcg = 1000 Iu)] Cyanocobalamin (Vitamin B-12) 1,000 mcg PO DAILY 10/07/20 10/07/20 History [Vitamin B-12] Cyclobenzaprine [Flexeril] 5 mg PO Q8H 10/07/20 10/07/20 History Dicyclomine [Bentyl] 10 mg PO DAILY 10/07/20 10/07/20 History Gabapentin [Neurontin] 300 mg PO BID 10/07/20 10/07/20 History Insulin Glargine,Hum.rec.anlog 10 unit SQ HS 10/07/20 10/07/20 History [Lantus Solostar] Levothyroxine Sodium 75 mcg PO MOTUWETHFR 10/07/20 10/07/20 History Levothyroxine Sodium 150 mcg PO SUSA 10/07/20 10/07/20 History Metoprolol Tartrate [Lopressor] 12.5 mg PO BID 10/07/20 10/07/20 History Potassium Gluconate 99 mg PO DAILY 10/07/20 10/07/20 History Psyllium Husk 100% [Metamucil 6 gm PO DAILY 10/07/20 10/07/20 History Packet] amLODIPine [Norvasc] 10 mg PO DAILY 10/07/20 10/07/20 History Allergies Allergy/AdvReac Type Severity Reaction Status Date / Time No Known Allergies Allergy Verified 10/07/20 08:53 Surgical - Exam Vital Signs Temp Pulse Resp BP 97.5 F L 104 H 18 122/84 10/07/20 08:53 10/07/20 08:53 10/07/20 08:53 10/07/20 08:53 Results - Labs 10/07/20 09:14 10/07/20 09:14 Abnormal Lab Results - Last 24 Hours (Table) 10/07/20 10/07/20 Range/Units 09:14 09:14 Sodium 125 L (137-145) mmol/L Chloride 88 L (98-107) mmol/L BUN 24 H (7-17) mg/dL Glucose 169 H (74-99) mg/dL Plasma Lactic Acid Isra 2.1 H* (0.7-2.0) mmol/L Calcium 10.9 H (8.4-10.2) mg/dL Diabetes panel 10/07/20 Range/Units 09:14 Sodium 125 L (137-145) mmol/L Potassium 3.9 (3.5-5.1) mmol/L Chloride 88 L (98-107) mmol/L Carbon Dioxide 29 (22-30) mmol/L BUN 24 H (7-17) mg/dL Creatinine 1.00 (0.52-1.04) mg/dL Glucose 169 H (74-99) mg/dL Calcium 10.9 H (8.4-10.2) mg/dL AST 27 (14-36) U/L ALT 16 (4-34) U/L Alkaline Phosphatase 63 (38-126) U/L Total Protein 6.9 (6.3-8.2) g/dL Albumin 4.1 (3.5-5.0) g/dL Calcium panel 10/07/20 Range/Units 09:14 Calcium 10.9 H (8.4-10.2) mg/dL Albumin 4.1 (3.5-5.0) g/dL Pituitary panel 10/07/20 Range/Units 09:14 Sodium 125 L (137-145) mmol/L Potassium 3.9 (3.5-5.1) mmol/L Chloride 88 L (98-107) mmol/L Carbon Dioxide 29 (22-30) mmol/L BUN 24 H (7-17) mg/dL Creatinine 1.00 (0.52-1.04) mg/dL Glucose 169 H (74-99) mg/dL Calcium 10.9 H (8.4-10.2) mg/dL Adrenal panel 10/07/20 Range/Units 09:14 Sodium 125 L (137-145) mmol/L Potassium 3.9 (3.5-5.1) mmol/L Chloride 88 L (98-107) mmol/L Carbon Dioxide 29 (22-30) mmol/L BUN 24 H (7-17) mg/dL Creatinine 1.00 (0.52-1.04) mg/dL Glucose 169 H (74-99) mg/dL Calcium 10.9 H (8.4-10.2) mg/dL Total Bilirubin 0.4 (0.2-1.3) mg/dL AST 27 (14-36) U/L ALT 16 (4-34) U/L Alkaline Phosphatase 63 (38-126) U/L Total Protein 6.9 (6.3-8.2) g/dL Albumin 4.1 (3.5-5.0) g/dL
[2020-10-07] MEDS ORDERED: NON FORMULARY DRUG (Acetaminophen [Tylenol Arthritis] 650 MG Tablet.Er) PO PRN (15:12)
[2020-10-07] MEDS ORDERED: HYDROcodone/APAP 5-325MG 1 EACH TAB PO PRN (15:12)
[2020-10-07 15:15] LABS: Appearance,Urine Cloudy (Clear); Bacteria,Urine Rare /hpf; Bilirubin,Urine Negative (Negative); Blood,Urine Negative (Negative); Color,Urine Light Yellow; Glucose,Urine (UA) Negative (Negative); Ketones,Urine Negative (Negative); Leukocyte Esterase,Urine Moderate (Negative); Mucus,Urine Rare /hpf; Nitrite,Urine Negative (Negative); PH, Urine 6.5 (5.0-8.0); Protein,Urine 1+ (Negative); RBC,Urine 1 /hpf (0-5); Specific Gravity,Urine 1.008 (1.001-1.035); Squamous Epithelial Cell,Urine <1 /hpf (0-4); Urobilinogen,Urine <2.0 mg/dL (<2.0); WBC,Urine 32 /hpf (0-5)
[2020-10-07] MEDS: LEVOTHYROXINE 75 MCG TAB PO SCH (16:27)
[2020-10-07] MEDS: amLODIPine 10 MG TAB PO SCH (16:32)
[2020-10-07] MEDS: ASPIRIN 81 MG PO SCH (16:33)
[2020-10-07] MEDS: DICYCLOMINE 10 MG CAP PO SCH (16:33)
[2020-10-07] MEDS: CYANOCOBALAMIN 500 MCG TAB PO SCH (16:33)
[2020-10-07] MEDS: GABAPENTIN 300 MG CAP PO SCH ×2 (16:33→21:10)
[2020-10-07] MEDS: CYCLOBENZAPRINE 5 MG TAB PO SCH (16:34)
[2020-10-07] MEDS: LOSARTAN 50 MG TAB PO SCH (16:34)
[2020-10-07 16:43] LABS: Glucose,Whole Blood 142 mg/dL (75-99)
[2020-10-07] MEDS: INSULIN ASPART (NovoLOG) 100 UNIT/ML VIAL SQ SCH ×2 (17:07→21:09)
--- NOTE | 2020-10-07 17:17 | P.HPIM ---
History of Present Illness H&P Date: 10/07/20 Chief Complaint: Epigastric pain History of presenting complaint: This is a 80-year-old patient who follows with Dr. Minda arechiga. Recently in the hospital about 5 weeks ago. Admitted with acute on chronic low back pain. MRI of the lumbar spine showed : spondylosis spinal stenosis. underwent epidural steroid injection and L3-L4. Seen by Dr. Mercer from orthopedic spine. Also by Dr. Wilson from neurology. Patient has declined any major surgical intervention. Chronic stable medical conditions include hypertension, hyperlipidemia, diabetes, osteoarthritis. Patient's back pain has been well controlled since last admission. Does use a walker. Now presents with 4-5 days of epigastric pain. Rather constant. Nausea. Some vomiting. No fever no chills. He does radiate to the site. Has barely been eating. Decreased bowel movement. Did pass flatus. Review of systems: GEN.: Tired 97.5, 104, 18, 122/84, 96% on room air EYES: None HEENT: None NECK: None RESPIRATORY: None CARDIOVASCULAR: None GASTROINTESTINAL: as above GENITOURINARY: None MUSCULOSKELETAL: joint pains LYMPHATICS: None HEMATOLOGICAL: None PSYCHIATRY: Forgetful NEUROLOGICAL: Weak In the legs, uses a walker Past medical history to include: Diabetes, hypertension, hyperlipidemia, memory impairment, chronic kidney disease, hypothyroid, chronic low back pain with arthritis Social history: Does not smoke or drink alcohol. Apparently lives alone. Family history: Dementia Physical examination: VITAL SIGNS: GENERAL: BMI 32.6, laying in bed, tired EYES: Pupils equal. Conjunctiva normal. HEENT: External appearance of nose and ears normal, oral cavity grossly normal. NECK: JVD not raised; masses not palpable. HEART: First and second heart sounds are normal; no edema. LUNGS: Respiratory rate normal; clear to auscultation. ABDOMEepigastric tenderness, no guarding rigidityver spleen not palpable, no masses palpable. PSYCH: Lethargic but able to answer simple questionsl. NEUROLOGICAL: [Cranial nerves grossly intact; no facial asymmetry, moving all 4 limbs YMPHATICS: No lymph nodes palpable in the axilla and neck INVESTIGATIONS, reviewed in the clinical context: WBC 8 hemoglobin 12.7 platelets 286 sodium 125 potassium 3.9 BUN 24 creatinine 1.0 Amylase 82 and lipase 191 UA positive for leukoesterase, WBC EKG tracing personally reviewed by me-atrial fibrillation. Rate 83 Computed tomography scan of the abdomen: Mild stranding adjacent to the pancreatic head.. Some fluid distention of the small and large bowel. KUB: Personally reviewed by me: Some air-fluid level. Assessment and plan: -Patient presents with 4 days of epigastric pain. Prior to getting worse. Some nausea as some vomiting. Computed tomography scan showing some fat stranding around the pancreas. Though pancreatic enzymes normal. Spell could be gastritis/tendinitis. Gen. surgery was consulted. Add PPI. -chronic low back pain-from spondylosis and spinal stenosis. Use heating pad. Flexeril 5 mg 3 times a day. Tylenol. Status post steroid epidural injection L3/L4 by Dr. Chandler -Diabetes mellitus type 2, chronically on insulin Follow Accu-Cheks. -Hyperlipidemia Continue Zocor -Hypothyroid Continue Synthroid -Essential hypertension, Amlodipine, Lopressor, Cozaar -acute UTI with cystitis Keflex 250 mg 4 times a day PPI added. Home medications resumed. Follow Accu-Cheks. IV fluids. Surgery consulted. Use liquid Tums scheduled. Clear liquid diet. Keflex for UTI Past Medical History Past Medical History: Diabetes Mellitus, Hyperlipidemia, Hypertension, Memory Impairment, Renal Disease, Thyroid Disorder History of Any Multi-Drug Resistant Organisms: None Reported Past Surgical History: Bladder Surgery, Breast Surgery, Cholecystectomy, Joint Replacement Additional Past Surgical History / Comment(s): bladder suspension, partial hysterectomy. double mastectomy Past Psychological History: No Psychological Hx Reported Smoking Status: Never smoker Past Alcohol Use History: None Reported Past Drug Use History: None Reported - Past Family History Mother Family Medical History: Dementia Brother(s) Family Medical History: Dementia, Myocardial Infarction ([place]) Medications and Allergies Home Medications Medication Instructions Recorded Confirmed Type Olmesartan Medoxomil [Benicar] 40 mg PO DAILY 09/05/20 10/07/20 History Simvastatin [Zocor] 20 mg PO HS 09/05/20 10/07/20 History Chlorthalidone [Hygroton] 25 mg PO DAILY tab 09/09/20 10/07/20 Rx HYDROcodone/APAP 5-325MG [[place] 1 tab PO Q4H PRN #0 09/09/20 10/07/20 Rx 5-325] Acetaminophen [Tylenol Arthritis] 650 mg PO Q8H PRN 10/07/20 10/07/20 History Aspirin EC [Ecotrin Low Dose] 81 mg PO DAILY 10/07/20 10/07/20 History Biotin 5 mg PO DAILY 10/07/20 10/07/20 History Cholecalciferol [Vitamin D3 (25 25 mcg PO DAILY 10/07/20 10/07/20 History Mcg = 1000 Iu)] Cyanocobalamin (Vitamin B-12) 1,000 mcg PO DAILY 10/07/20 10/07/20 History [Vitamin B-12] Cyclobenzaprine [Flexeril] 5 mg PO Q8H 10/07/20 10/07/20 History Dicyclomine [Bentyl] 10 mg PO DAILY 10/07/20 10/07/20 History Gabapentin [Neurontin] 300 mg PO BID 10/07/20 10/07/20 History Insulin Glargine,Hum.rec.anlog 10 unit SQ HS 10/07/20 10/07/20 History [Lantus Solostar] Levothyroxine Sodium 75 mcg PO MOTUWETHFR 10/07/20 10/07/20 History Levothyroxine Sodium 150 mcg PO SUSA 10/07/20 10/07/20 History Metoprolol Tartrate [Lopressor] 12.5 mg PO BID 10/07/20 10/07/20 History Potassium Gluconate 99 mg PO DAILY 10/07/20 10/07/20 History Psyllium Husk 100% [Metamucil 6 gm PO DAILY 10/07/20 10/07/20 History Packet] amLODIPine [Norvasc] 10 mg PO DAILY 10/07/20 10/07/20 History Allergies Allergy/AdvReac Type Severity Reaction Status Date / Time No Known Allergies Allergy Verified 10/07/20 08:53 Physical Exam Vitals: Vital Signs Temp Pulse Pulse Resp BP BP Pulse Ox 10/07/20 12:01 97.7 F 88 14 149/82 93 L 10/07/20 10:32 71 17 122/96 96 10/07/20 08:53 97.5 F L 104 H 18 122/84 Intake and Output 10/07/20 10/07/20 10/07/20 06:59 14:59 22:59 Other: Weight 83.461 kg Results CBC & Chem 7: 10/07/20 09:14 07/21/21 09:14 Labs: Abnormal Lab Results - Last 24 Hours (Table) 10/07/20 10/07/20 Range/Units 09:14 09:14 Sodium 125 L (137-145) mmol/L Chloride 88 L (98-107) mmol/L BUN 24 H (7-17) mg/dL Glucose 169 H (74-99) mg/dL Plasma Lactic Acid Isra 2.1 H* (0.7-2.0) mmol/L Calcium 10.9 H (8.4-10.2) mg/dL
[2020-10-07] MEDS: CEPHALEXIN 250 MG CAP PO SCH (18:17)
[2020-10-07] MEDS: CALCIUM CARBONATE LIQUID 500 MG/5 ML CUP PO SCH ×2 (18:17→21:10)
[2020-10-07] MEDS: PANTOPRAZOLE 40 MG TABLET PO SCH (18:19)
[2020-10-07 20:25] LABS: Glucose,Whole Blood 147 mg/dL (75-99)
[2020-10-07] MEDS: INSULIN DETEMIR (LEVEMIR) 100 UNIT/ML SYR SQ SCH (21:07)
[2020-10-07] MEDS: DOCUSATE 100 MG CAP PO SCH (21:10)
[2020-10-07] MEDS: METOPROLOL TARTRATE 12.5 MG TAB PO SCH (21:10)
[2020-10-07] MEDS: ATORVASTATIN 10 MG TAB PO SCH (21:10)
[2020-10-08] MEDS: CYCLOBENZAPRINE 5 MG TAB PO SCH ×4 (00:03→22:54)
[2020-10-08] MEDS: CEPHALEXIN 250 MG CAP PO SCH ×5 (00:03→22:54)
[2020-10-08] MEDS: SODIUM CHLORIDE 0.9% 1,000 ML IV SCH ×3 (00:04→22:54)
[2020-10-08] MEDS: LEVOTHYROXINE 75 MCG TAB PO SCH (06:02)
[2020-10-08 06:57] LABS: Glucose,Whole Blood 100 mg/dL (75-99)
[2020-10-08] MEDS: INSULIN ASPART (NovoLOG) 100 UNIT/ML VIAL SQ SCH ×4 (07:38→20:21)
[2020-10-08] MEDS: LOSARTAN 50 MG TAB PO SCH (07:46)
[2020-10-08] MEDS: METOPROLOL TARTRATE 12.5 MG TAB PO SCH ×2 (07:46→20:20)
[2020-10-08] MEDS: PANTOPRAZOLE 40 MG TABLET PO SCH ×2 (07:47→16:40)
[2020-10-08] MEDS: GABAPENTIN 300 MG CAP PO SCH ×2 (07:47→20:20)
[2020-10-08] MEDS: ASPIRIN 81 MG PO SCH (07:47)
[2020-10-08] MEDS: CYANOCOBALAMIN 500 MCG TAB PO SCH (07:47)
[2020-10-08] MEDS: amLODIPine 10 MG TAB PO SCH (07:47)
[2020-10-08] MEDS: DOCUSATE 100 MG CAP PO SCH ×2 (07:47→20:20)
[2020-10-08] MEDS: DICYCLOMINE 10 MG CAP PO SCH (07:47)
[2020-10-08] MEDS: CALCIUM CARBONATE LIQUID 500 MG/5 ML CUP PO SCH ×4 (07:48→20:20)
[2020-10-08] MEDS ORDERED: PANTOPRAZOLE 40 MG/10 ML VIAL IV SCH (09:00)
[2020-10-08 10:40] LABS: ALT 96 U/L (4-34); AST 112 U/L (14-36); African American GFR (CKD) 75 (>60 ml/min/1.73 sqM); Albumin 3.3 g/dL (3.5-5.0); Albumin/Globulin Ratio 1.2; Alkaline Phosphatase 84 U/L (38-126); Anion Gap 8 mmol/L; Blood Urea Nitrogen 16 mg/dL (7-17); Calcium 9.6 mg/dL (8.4-10.2); Carbon Dioxide 27 mmol/L (22-30); Chloride 97 mmol/L (98-107); Globulin 2.7 g/dL; Glucose 134 mg/dL (74-99); Magnesium 1.7 mg/dL (1.6-2.3); Non-African American GFR(CKD) 65 (>60 ml/min/1.73 sqM); Potassium 3.9 mmol/L (3.5-5.1); Sodium 132 mmol/L (137-145); Total Bilirubin 0.2 mg/dL (0.2-1.3)
--- NOTE | 2020-10-08 11:16 | P.PN ---
Subjective Progress Note Date: 10/08/20 CHIEF COMPLAINT: Abdominal pain HISTORY OF PRESENT ILLNESS: Patient's abdominal pain has resolved. She denies any nausea or vomiting. She reports that about 3 days since her last bowel movement. She was able to tolerate clear liquid breakfast this morning. Afebrile. WBC 8.0 sodium improved from 125-132 potassium 3.9 BUN 16 creatinine 0.84 AST 112 ALT 96 total bili 0.2 magnesium 1.7 She's also on antibiotics for UTI. Today she is complaining of lower back pain and pain radiating down her legs. She reports that her sciatica pain is acting up. PHYSICAL EXAM: VITAL SIGNS: Reviewed GENERAL: Well-developed in no acute distress. HEENT: No sclera icterus. Extraocular movements grossly intact. Moist buccal mucosa. Head is atraumatic, normocephalic. Hears conversational speech. No nasal drai nage. NECK: Supple without lymphadenopathy. CHEST: Non-labored respirations and equal bilateral excursions. CARDIOVASCULAR: Palpable 2+ radial pulses. ABDOMEN: Soft. Nondistended. Nontender. MUSCULOSKELETAL: No clubbing or cyanosis. NEUROLOGIC: No focal or lateralizing signs. Cranial nerves II through XII grossly intact. PSYCH: Appropriate affect. Alert and oriented to person, place and time. SKIN: Well perfused. Good skin turgor. ASSESSMENT: 1. Epigastric abdominal pain with nausea and vomiting improved 2. Ileus possibly due to the hyponatremia and UTI 3. Possible Mild pancreatitis or duodenitis 4. Hyponatremia 5. Dehydration 6. UTI 7. History of chronic back pain with known spondylosis and spinal stenosis 8. Hypomagnesemia PLAN: -Continue conservative management -We'll give Dulcolax suppository to help stimulate bowel function -Medical management for hyponatremia -Advance diet to full liquids -Encouraged patient to increase activity -Agree with PT OT consult -Continue antibiotics for UTI -Continue PPI Physician Regional Sales Manager note has been reviewed by physician. Signing provider agrees with the documented findings, assessment, and plan of care. Objective - Vital Signs Vital signs: Vital Signs Temp 97.8 F 10/08/20 07:27 Pulse 86 10/08/20 07:27 Resp 16 10/08/20 07:27 BP 164/73 10/08/20 07:27 Pulse Ox 98 10/08/20 07:27 Intake & Output 10/07/20 10/08/20 10/08/20 18:59 06:59 18:59 Weight 83.461 kg Other: # Voids 2 2 - Labs CBC & Chem 7: 10/07/20 09:14 10/08/20 09:20 Labs: Abnormal Lab Results - Last 24 Hours (Table) 10/07/20 10/07/20 10/07/20 Range/Units 09:14 16:34 20:23 Sodium (137-145) mmol/L Chloride (98-107) mmol/L Glucose (74-99) mg/dL POC Glucose (mg/dL) 142 H 147 H (75-99) mg/dL AST (14-36) U/L ALT (4-34) U/L Total Protein (6.3-8.2) g/dL Albumin (3.5-5.0) g/dL Urine Appearance Cloudy H (Clear) Urine Protein 1+ H (Negative) Ur Leukocyte Esterase Moderate H (Negative) Urine WBC 32 H (0-5) /hpf Urine Bacteria Rare H (None) /hpf Urine Mucus Rare H (None) /hpf 10/08/20 10/08/20 Range/Units 06:55 09:20 Sodium 132 L (137-145) mmol/L Chloride 97 L (98-107) mmol/L Glucose 134 H (74-99) mg/dL POC Glucose (mg/dL) 100 H (75-99) mg/dL AST 112 H (14-36) U/L ALT 96 H (4-34) U/L Total Protein 6.0 L (6.3-8.2) g/dL Albumin 3.3 L (3.5-5.0) g/dL Urine Appearance (Clear) Urine Protein (Negative) Ur Leukocyte Esterase (Negative) Urine WBC (0-5) /hpf Urine Bacteria (None) /hpf Urine Mucus (None) /hpf Microbiology - Last 24 Hours (Table) 10/07/20 09:14 Urine Culture - Preliminary Urine,Voided
[2020-10-08] MEDS ORDERED: MAGNESIUM SULFATE-D5W PMX 1 GM in DEXTROSE/WATER 1 100ML.BAG IVPB ONE (11:18)
[2020-10-08 11:48] LABS: Glucose,Whole Blood 113 mg/dL (75-99)
[2020-10-08] MEDS ORDERED: bisacodyL 10 MG SUPP RECTAL STA (13:38)
[2020-10-08 14:49] LABS: Basophils # (A) 0.02 X 10*3/uL (0.00-0.10); Basophils % (A) 0.4 %; Eosinophils % (A) 1.8 %; HGB 11.2 g/dL (12.0-15.0); Lymphocytes # (A) 1.21 X 10*3/uL (0.90-5.00); Lymphocytes % (A) 21.6 %; MCH 29.5 pg (27.0-32.0); MCV 92.1 fL (80.0-97.0); Mean Platelet Volume 9.3 fL (9.5-12.2); Monocytes # (A) 0.53 X 10*3/uL (0.20-1.00); Monocytes % (A) 9.4 %; Neutrophils # (A) 3.72 X 10*3/uL (1.80-7.70); Neutrophils % (A) 66.3 %; Platelet Count 172 X 10*3/uL (140-440); RDW 13.6 % (11.5-14.5); WBC 5.61 X 10*3/uL (4.50-10.00)
[2020-10-08 16:29] LABS: Glucose,Whole Blood 114 mg/dL (75-99)
--- NOTE | 2020-10-08 17:56 | P.PN ---
Progress Note - Text Progress Note Date: 10/08/20 Chief Complaint: Epigastric pain History of presenting complaint: This is a 80-year-old patient who follows with Dr. Minda arechiga. Recently in the hospital about 5 weeks ago. Admitted with acute on chronic low back pain. MRI of the lumbar spine showed : spondylosis spinal stenosis. underwent epidural steroid injection and L3-L4. Seen by Dr. Mercer from orthopedic spine. Also by Dr. Wilson from neurology. Patient has declined any major surgical intervention. Chronic stable medical conditions include hypertension, hyperlipidemia, diabetes, osteoarthritis. Patient's back pain has been well controlled since last admission. Does use a walker. Now presents with 4-5 days of epigastric pain. Rather constant. Nausea. Some vomiting. No fever no chills. He does radiate to the site. Has barely been eating. Decreased bowel movement. Did pass flatus. Admitted with possible severe gastritis. Put on PPI and Tums. Hyponatremia. October 08: Sitting up in a chair. Some of the bedside. Epigastric pain better. Did tolerate clear liquids. Seen by surgery. Diet advanced to full liquid. Care was discussed with the son and the patient. Diet discussed in detail. Review of systems: Was done for constitutional, cardiovascular, GI, pulmonary. relevant finding as above Active Medications Acetaminophen (Acetaminophen Tab 325 Mg Tab) 650 mg PO Q6HR PRN PRN Reason: Mild Pain or Fever > 100.5 Hydrocodone Bitart/Acetaminophen (Hydrocodone/Apap 5-325mg 1 Each Tab) 1 each PO Q4H PRN PRN Reason: Pain Last Admin: 10/07/20 21:10 Dose: 1 each Documented by: Amlodipine Besylate (Amlodipine 10 Mg Tab) 10 mg PO DAILY [facility] Last Admin: 10/08/20 07:47 Dose: 10 mg Documented by: Aspirin (Aspirin 81 Mg) 81 mg PO DAILY [facility] Last Admin: 10/08/20 07:47 Dose: 81 mg Documented by: Atorvastatin Calcium (Atorvastatin 10 Mg Tab) 10 mg PO HS [facility] Last Admin: 10/07/20 21:10 Dose: 10 mg Documented by: Calcium Carbonate/Glycine (Calcium Carbonate Liquid 500 Mg/5 Ml Cup) 500 mg PO ACHS [facility] Last Admin: 10/08/20 16:40 Dose: 500 mg Documented by: Cephalexin (Cephalexin 250 Mg Cap) 250 mg PO QID [facility] Last Admin: 10/08/20 16:40 Dose: 250 mg Documented by: Cyanocobalamin (Cyanocobalamin 500 Mcg Tab) 1,000 mcg PO DAILY [facility] Last Admin: 10/08/20 07:47 Dose: 1,000 mcg Documented by: Cyclobenzaprine HCl (Cyclobenzaprine 5 Mg Tab) 5 mg PO Q8HR [facility] Last Admin: 10/08/20 16:05 Dose: 5 mg Documented by: Dicyclomine HCl (Dicyclomine 10 Mg Cap) 10 mg PO DAILY [facility] Last Admin: 10/08/20 07:47 Dose: 10 mg Documented by: Docusate Sodium (Docusate 100 Mg Cap) 100 mg PO BID [facility] Last Admin: 10/08/20 07:47 Dose: 100 mg Documented by: Gabapentin (Gabapentin 300 Mg Cap) 300 mg PO BID [facility] Last Admin: 10/08/20 07:47 Dose: 300 mg Documented by: Sodium Chloride (Saline 0.9%) 1,000 mls @ 75 mls/hr IV .[id number] [facility] Last Admin: 10/08/20 16:35 Dose: Not Given Documented by: Insulin Aspart (Insulin Aspart (Novolog) 100 Unit/Ml Vial) 0 unit SQ [facility]; Protocol Last Admin: 10/08/20 16:35 Dose: Not Given Documented by: Insulin Detemir (Insulin Detemir (Levemir) 100 Unit/Ml Syr) 10 unit SQ [facility] Last Admin: 10/07/20 21:07 Dose: Not Given Documented by: Levothyroxine Sodium (Levothyroxine 75 Mcg Tab) 150 mcg PO SuSa@0630 [facility] Levothyroxine Sodium (Levothyroxine 75 Mcg Tab) 75 mcg PO MoTuWeThFr@0630 [facility] Last Admin: 10/08/20 06:02 Dose: 75 mcg Documented by: Losartan Potassium (Losartan 50 Mg Tab) 150 mg PO DAILY [facility] Last Admin: 10/08/20 07:46 Dose: 150 mg Documented by: Metoprolol Tartrate (Metoprolol Tartrate 12.5 Mg Tab) 12.5 mg PO BID [facility] Last Admin: 10/08/20 07:46 Dose: 12.5 mg Documented by: Morphine Sulfate (Morphine Sulfate 4 Mg/Ml Syringe) 4 mg IV Q4HR PRN PRN Reason: Severe Pain Naloxone HCl (Naloxone 0.4 Mg/Ml 1 Ml Vial) 0.2 mg IV Q2M PRN PRN Reason: Opioid Reversal Ondansetron HCl (Ondansetron 4 Mg/2 Ml Vial) 4 mg IVP Q8HR PRN PRN Reason: Nausea And Vomiting Pantoprazole Sodium (Pantoprazole 40 Mg Tablet) 40 mg PO AC-BID [facility] Last Admin: 10/08/20 16:40 Dose: 40 mg Documented by: Past medical history to include: Diabetes, hypertension, hyperlipidemia, memory impairment, chronic kidney disease, hypothyroid, chronic low back pain with arthritis Social history: Does not smoke or drink alcohol. Apparently lives alone. Family history: Dementia Physical examination: VITAL SIGNS: 98.6, 76, 16, 118/76, 96% room air GENERAL: Sitting up in a chair, awake, comfortable EYES: Pupils equal. Conjunctiva normal. HEENT: External appearance of nose and ears normal, oral cavity grossly normal. NECK: JVD not raised; masses not palpable. HEART: First and second heart sounds are normal; no edema. LUNGS: Respiratory rate normal; clear to auscultation. ABDOMEN: Soft, no tenderness, no guarding rigidityver spleen not palpable, no masses palpable. PSYCH: Lethargic but able to answer simple questionsl. INVESTIGATIONS, reviewed in the clinical context: October 08: WBC 5.6 hemoglobin 11.2 potassium 3.9 sodium 132 creatinine 0.84 WBC 8 hemoglobin 12.7 platelets 286 sodium 125 potassium 3.9 BUN 24 creatinine 1.0 Amylase 82 and lipase 191 UA positive for leukoesterase, WBC EKG tracing personally reviewed by me-atrial fibrillation. Rate 83 Computed tomography scan of the abdomen: Mild stranding adjacent to the pancreatic head.. Some fluid distention of the small and large bowel. KUB: Personally reviewed by me: Some air-fluid level. Assessment and plan: -Patient presents with 4 days of epigastric pain. Prior to getting worse. Some nausea as some vomiting. Computed tomography scan showing some fat stranding around the pancreas. Though pancreatic enzymes normal. could be gastritis/duodenitis PPI and liquid Tums. Doing better. Diet advanced to full liquid Hyponatremia. Sodium of 125 on admission Improving. -GERD PPI -chronic low back pain-from spondylosis and spinal stenosis. Use heating pad. Flexeril 5 mg 3 times a day. Tylenol. Status post steroid epidural injection L3/L4 by Dr. Chandler -Diabetes mellitus type 2, chronically on insulin Follow Accu-Cheks. -Hyperlipidemia Continue Zocor -Hypothyroid Continue Synthroid -Essential hypertension, Amlodipine, Lopressor, Cozaar -acute UTI with cystitis Keflex 250 mg 4 times a day -Increased LFT Abdominal ultrasound Continue PPI. Liquid dose. Diet advanced to full liquid. Diet discussed length with the patient notes out of the bedside. Abdominal ultrasound. Total time spent about 40 minutes with over 20 minutes of discussion.
[2020-10-08 19:58] LABS: Glucose,Whole Blood 185 mg/dL (75-99)
[2020-10-08] MEDS: ATORVASTATIN 10 MG TAB PO SCH (20:20)
[2020-10-08] MEDS: INSULIN DETEMIR (LEVEMIR) 100 UNIT/ML SYR SQ SCH (20:22)
[2020-10-08 20:32] VITALS: TEMP 97.7
[2020-10-09] MEDS: LEVOTHYROXINE 75 MCG TAB PO SCH (06:00)
[2020-10-09 07:35] VITALS: BP 162/73; PULSE 80; RESP 18
[2020-10-09 07:46] LABS: Glucose,Whole Blood 107 mg/dL (75-99)
[2020-10-09] MEDS: PANTOPRAZOLE 40 MG TABLET PO SCH (07:48)
[2020-10-09] MEDS: LOSARTAN 50 MG TAB PO SCH (07:48)
[2020-10-09] MEDS: GABAPENTIN 300 MG CAP PO SCH (07:48)
[2020-10-09] MEDS: DOCUSATE 100 MG CAP PO SCH (07:49)
[2020-10-09] MEDS: CYANOCOBALAMIN 500 MCG TAB PO SCH (07:49)
[2020-10-09] MEDS: ASPIRIN 81 MG PO SCH (07:49)
[2020-10-09] MEDS: DICYCLOMINE 10 MG CAP PO SCH (07:49)
[2020-10-09] MEDS: CEPHALEXIN 250 MG CAP PO SCH ×2 (07:49→12:43)
[2020-10-09] MEDS: amLODIPine 10 MG TAB PO SCH (07:49)
[2020-10-09] MEDS: METOPROLOL TARTRATE 12.5 MG TAB PO SCH (07:49)
[2020-10-09] MEDS: CALCIUM CARBONATE LIQUID 500 MG/5 ML CUP PO SCH ×2 (07:50→12:42)
[2020-10-09] MEDS: CYCLOBENZAPRINE 5 MG TAB PO SCH (07:58)
--- NOTE | 2020-10-09 08:08 | US ---
EXAMINATION TYPE: US abdomen limited DATE OF EXAM: 10/08/2020 COMPARISON: CT CLINICAL HISTORY: Increased LFT. Patient stated gallbladder was removed; epigastric pain; diabetic EXAM MEASUREMENTS: Liver Length: 17.2 cm Gallbladder Wall: surgically removed CBD: 0.6 cm Right Kidney: 10.4 x 6.5 x 5.3 cm Pancreas: hyperechoic Liver: Increased attenuation Gallbladder: surgically removed Evidence for sonographic Parker's sign: epigastric area tender CBD: wnl Right Kidney: No hydronephrosis or masses seen IMPRESSION: 1. The liver is increased in echotexture with poor penetration which is nonspecific but most commonly seen with hepatic steatosis. 2. Status post cholecystectomy.
[2020-10-09] MEDS: INSULIN ASPART (NovoLOG) 100 UNIT/ML VIAL SQ SCH ×2 (11:39→12:41)
--- NOTE | 2020-10-09 11:45 | P.PN ---
Subjective Progress Note Date: 10/09/20 HPI: Patient reports abdominal pain is resolved. She is tolerating full liquid diet. Family has questions for concerns of rebound symptoms. Patient complains that she has not had a bowel movement. Ultrasound ordered by medicine team and completed this morning. ABDOMEN: No peritonitis LABS: Sodium improved. LFTs elevated. STUDIES: CT of the abdomen and pelvis reviewed independently with inflammatory changes around the pancreas suspicious for resolved pancreatitis. This is my independent interpretation. REPORT: US gallbladder report demonstrated surgically absent gallbladder. Fatty liver disease confirmed. ASSESSMENT: 1. Ileus 2. Clinical pancreatitis 3. Hyponatremia 4. Constipation PLAN: 1. Diet advanced 2. Hold discharge pending bowel movement. Soap suds enema 2-Liters ordered 3. With elevated liver enzymes and clinically resolving pancreatitis, follow-up with GI advised and communicated with hospitalist team. 4. No surgical intervention needed. Objective - Vital Signs Vital signs: Vital Signs Temp 97.7 F 10/09/20 07:34 Pulse 80 10/09/20 07:34 Resp 18 10/09/20 07:34 BP 162/73 10/09/20 07:34 Pulse Ox 96 10/09/20 07:34 Intake & Output 10/08/20 10/09/20 10/09/20 18:59 06:59 18:59 Intake Total 1080 480 250 Balance 1080 480 250 Intake: Oral 1080 480 250 Other: # Voids 4 2 - Labs CBC & Chem 7: 10/08/20 09:20 10/08/20 09:20 Labs: Abnormal Lab Results - Last 24 Hours (Table) 10/08/20 10/08/20 10/08/20 Range/Units 09:20 11:46 16:28 RBC 3.80 L (4.10-5.20) X 10*6/uL Hgb 11.2 L (12.0-15.0) g/dL Hct 35.0 L (37.2-46.3) % MPV 9.3 L (9.5-12.2) fL POC Glucose (mg/dL) 113 H 114 H (75-99) mg/dL 10/08/20 10/09/20 Range/Units 19:57 07:44 RBC (4.10-5.20) X 10*6/uL Hgb (12.0-15.0) g/dL Hct (37.2-46.3) % MPV (9.5-12.2) fL POC Glucose (mg/dL) 185 H 107 H (75-99) mg/dL Microbiology - Last 24 Hours (Table) 10/07/20 09:14 Urine Culture - Final Urine,Voided Enterobacter cloacae
[2020-10-09 11:49] LABS: Glucose,Whole Blood 130 mg/dL (75-99)
--- NOTE | 2020-10-09 13:36 | CDI ---
Documentation Clarification Form Date: 10/09/2020 01:25:54 PM From: Jessica Duong CCS, CCDS Admit Date: 10/07/2020 10:47:00 AM Patient Name: Ivelisse Vazquez Visit Number: [id number] Discharge Date: ATTENTION: The Clinical Documentation Specialists (CDI) and [facility] Coding Staff appreciate your assistance in clarifying documentation. Please respond to the clarification below the line at the bottom and electronically sign. The CDI & [facility] Coding staff will review the response and follow-up if needed. Please note: Queries are made part of the Legal Health Record. If you have any questions, please contact the author of this message via ITS. Dr. Hay Johansen: Unspecified CKD is documented in the 10/07 H/P & the 10/08 Attending Progress Note. Additional clarification regarding the stage of CKD is requested. History/Risk Factors per the 10/07 H/P: CKD, DM, Hypertension, Hyperlipidemia, Hypothyroid Clinical Indicators: Presented to the ED on 10/07 with Abdominal Pain, Vomiting, Nausea, last BM >3 days ago, abdominal distention & bloating, sent from Urgent Care. ED Clinical Impression: Dehydration, Ileus, Hyponatremia Patients Historical GFR: 09/05/2020: 35 09/06/2020: 62 09/07/2020: 69.5 09/11/2020: 38.2 Current: GFR 10/07 GFR 53, 10/08 GFR 65 Current BUN/Creatinine: 24, 26 / 1.00, 0.84 Treatment 10/07: IV Morphine 4 mg x1 x3, IV Protonix 40 mg x1, IV Na Cl 500 mls @ 999 mls/hr q31M, IV Na Cl 1,000 mls @ 75 mls/hr q13Hr, po [place] Home Meds: Norvasc, Zocor, Benicar, Lopressor, Synthroid, Insulin sq, [place], Neurontin, Bentyl, Flexeril, Vit B12, Vit D3, Ecotrin, Protonix, Keflex. Nephrology is not consulted. Please clarify the stage of the CKD, if known: [ ] CKD Stage 2 (GFR 60-89) [ ] CKD Stage 3 (GFR 30-59) [ ] CKD Stage 3a (GFR 45-59) [ ] CKD Stage 3b (GFR 30-44) [ ] Other, please specify [ ] Unable to determine (Template Last revised: April 2020) No CKD MTDD
--- NOTE | 2020-10-09 15:31 | P.DS ---
Providers Date of admission: 10/07/20 10:47 Expected date of discharge: 10/09/20 Attending physician: Hay Johansen Consults: 10/07/20 10:48 Consult Physician Routine Consulting Provider: Heaven Joya Consult Reason/Comments: Ileus Do you want consulting provider notified?: Yes Primary care physician: Minda Arechiga [facility] Course: Chief Complaint: Epigastric pain History of presenting complaint: This is a 80-year-old patient who follows with Dr. Minda arechiga. Recently in the hospital about 5 weeks ago. Admitted with acute on chronic low back pain. MRI of the lumbar spine showed : spondylosis spinal stenosis. underwent epidural steroid injection and L3-L4. Seen by Dr. Mercer from orthopedic spine. Also by Dr. Wilson from neurology. Patient has declined any major surgical intervention. Chronic stable medical conditions include hypertension, hyperlipidemia, diabetes, osteoarthritis. Patient's back pain has been well controlled since last admission. Does use a walker. Now presents with 4-5 days of epigastric pain. Rather constant. Nausea. Some vomiting. No fever no chills. He does radiate to the site. Has barely been e ating. Decreased bowel movement. Did pass flatus. Admitted with possible severe gastritis. Put on PPI and Tums. Hyponatremia. Improved. Also some ileus. [place] to be secondary to her narcotics. October 08: Sitting up in a chair. Some of the bedside. Epigastric pain better. Did tolerate clear liquids. Seen by surgery. Diet advanced to full liquid. Care was discussed with the son and the patient. Diet discussed in detail. October 09: Patient given enema. Had good results. Spoke to the patient was out of the bedside. Ultrasound of the liver did show hepatic steatosis. Metamucil increased. Follow-up with GI and Dr. Greenberg. Also discussed with Dr. Greenberg. Discussion and discharge planning more than 35 minutes Consultation: Dr. Greenberg from general surgery Past medical history to include: Diabetes, hypertension, hyperlipidemia, memory impairment, chronic kidney disease, hypothyroid, chronic low back pain with arthritis Social history: Does not smoke or drink alcohol. Apparently lives alone. Family history: Dementia Physical examination: VITAL SIGNS: 97.7, 80, 18, 160/73, 96% room air GENERAL: Reclining in bed, comfortable EYES: Pupils equal. Conjunctiva normal. HEENT: External appearance of nose and ears normal, oral cavity grossly normal. NECK: JVD not raised; masses not palpable. HEART: First and second heart sounds are normal; no edema. LUNGS: Respiratory rate normal; clear to auscultation. ABDOMEN: Soft, no tenderness, no guarding rigidityver spleen not palpable, no masses palpable. PSYCH: Awake, answering questions appropriately INVESTIGATIONS, reviewed in the clinical context: Liver ultrasound: Possibly hepatic stenosis October 08: WBC 5.6 hemoglobin 11.2 potassium 3.9 sodium 132 creatinine 0.84 WBC 8 hemoglobin 12.7 platelets 286 sodium 125 potassium 3.9 BUN 24 creatinine 1.0 Amylase 82 and lipase 191 UA positive for leukoesterase, WBC EKG tracing personally reviewed by me-atrial fibrillation. Rate 83 Computed tomography scan of the abdomen: Mild stranding adjacent to the pancreatic head.. Some fluid distention of the small and large bowel. KUB: Personally reviewed by me: Some air-fluid level. Assessment and plan: - Possibly acute on chronic gastritis/duodenitis: presents with 4 days of epigastric pain. Prior to getting worse. Some nausea as some vomiting. Computed tomography scan showing some fat stranding around the pancreas. Though pancreatic enzymes normal. PPI and liquid Tums. Responded well. Tolerating diet. Outpatient with GI. Hyponatremia. Sodium of 125 on admission Improving. -GERD PPI -Constipation from pain medications Responded enema. Dose of Metamucil increased -chronic low back pain-from spondylosis and spinal stenosis. Use heating pad. Flexeril 5 mg 3 times a day. Tylenol. Status post steroid epidural injection L3/L4 by Dr. Chandler -Diabetes mellitus type 2, chronically on insulin Follow Accu-Cheks. -Hyperlipidemia Continue Zocor -Hypothyroid Continue Synthroid -Essential hypertension, Amlodipine, Lopressor, Cozaar -acute UTI with cystitis Keflex 250 mg 4 times a day -complete course -Hepatic steatosis Follow-up with GI as outpatient Disposition: Home Patient Condition at Discharge: Stable Plan - Discharge Summary New Discharge Prescriptions: New Pantoprazole [Protonix] 40 mg PO AC-BID #60 tablet. Cephalexin [Keflex] 250 mg PO QID #8 cap Continue Cholecalciferol [Vitamin D3 (25 Mcg = 1000 Iu)] 25 mcg PO DAILY amLODIPine [Norvasc] 10 mg PO DAILY Insulin Glargine,Hum.rec.anlog [Lantus Solostar] 10 unit SQ HS Gabapentin [Neurontin] 300 mg PO BID Biotin 5 mg PO DAILY Aspirin EC [Ecotrin Low Dose] 81 mg PO DAILY Cyclobenzaprine [Flexeril] 5 mg PO Q8H Simvastatin [Zocor] 20 mg PO HS Olmesartan Medoxomil [Benicar] 40 mg PO DAILY HYDROcodone/APAP 5-325MG [Warren 5-325] 1 tab PO Q4H PRN #0 PRN Reason: Pain Acetaminophen [Tylenol Arthritis] 650 mg PO Q8H PRN PRN Reason: Pain Metoprolol Tartrate [Lopressor] 12.5 mg PO BID Levothyroxine Sodium 75 mcg PO MOTUWETHFR Levothyroxine Sodium 150 mcg PO SUSA Dicyclomine [Bentyl] 10 mg PO DAILY Cyanocobalamin (Vitamin B-12) [Vitamin B-12] 1,000 mcg PO DAILY Changed Psyllium Husk 100% [Metamucil Packet] 6 gm PO BID #0 Discontinued Potassium Gluconate 99 mg PO DAILY Chlorthalidone [Hygroton] 25 mg PO DAILY tab Discharge Medication List Olmesartan Medoxomil [Benicar] 40 mg PO DAILY 09/05/20 [History] Simvastatin [Zocor] 20 mg PO HS 09/05/20 [History] HYDROcodone/APAP 5-325MG [Warren 5-325] 1 tab PO Q4H PRN #0 09/09/20 [Rx] Acetaminophen [Tylenol Arthritis] 650 mg PO Q8H PRN 10/07/20 [History] Aspirin EC [Ecotrin Low Dose] 81 mg PO DAILY 10/07/20 [History] Biotin 5 mg PO DAILY 10/07/20 [History] Cholecalciferol [Vitamin D3 (25 Mcg = 1000 Iu)] 25 mcg PO DAILY 10/07/20 [History] Cyanocobalamin (Vitamin B-12) [Vitamin B-12] 1,000 mcg PO DAILY 10/07/20 [History] Cyclobenzaprine [Flexeril] 5 mg PO Q8H 10/07/20 [History] Dicyclomine [Bentyl] 10 mg PO DAILY 10/07/20 [History] Gabapentin [Neurontin] 300 mg PO BID 10/07/20 [History] Insulin Glargine,Hum.rec.anlog [Lantus Solostar] 10 unit SQ HS 10/07/20 [History] Levothyroxine Sodium 75 mcg PO MOTUWETHFR 10/07/20 [History] Levothyroxine Sodium 150 mcg PO SUSA 10/07/20 [History] Metoprolol Tartrate [Lopressor] 12.5 mg PO BID 10/07/20 [History] amLODIPine [Norvasc] 10 mg PO DAILY 10/07/20 [History] Cephalexin [Keflex] 250 mg PO QID #8 cap 10/09/20 [Rx] Pantoprazole [Protonix] 40 mg PO AC-BID #60 tablet. 10/09/20 [Rx] Psyllium Husk 100% [Metamucil Packet] 6 gm PO BID #0 10/09/20 [Rx] Follow up Appointment(s)/Referral(s): Heaven Joya MD [STAFF PHYSICIAN] - 10/27/20 4:15 pm Arlene Pantoja MD [STAFF PHYSICIAN] - 01/18/21 4:30 pm Minda Arechiga DO [Primary Care Provider] - 1-2 days (Please call office to schedule appointment) [facility], [NON-STAFF] - Patient Instructions/Handouts: Hyponatremia (GEN), Ileus (GEN) Discharge Disposition: HOME WITH HOME HEALTH SERVICES
[2020-10-09 17:43] LABS: Hepatitis A Antibody IgM Non-Reactive (Non-Reactive); Hepatitis B Core IgM Non-Reactive (Non-Reactive); Hepatitis B Surface Antigen Non-Reactive (Non-Reactive); Hepatitis C IgG Antibody Non-Reactive (Non-Reactive)
[2020-10-10] MEDS ORDERED: LEVOTHYROXINE 75 MCG TAB PO SCH (06:30)
== END 2020-10-09 14:30 | disposition home health service (06) | DRG 391 ==
LOC: SUPCPDRO 08:51 → EC 08:51 → 4SSUR 10:47
PROVIDERS: ADMIT Hospitalist; ATTEND Hospitalist
DX: K29.70 Gastritis, unspecified, without bleeding (principal); K85.90 Acute pancreatitis without necrosis or infection, unspecified; E87.1 Hypo-osmolality and hyponatremia; K56.7 Ileus, unspecified; K29.80 Duodenitis without bleeding; T40.605A Adverse effect of unspecified narcotics, initial encounter; R79.89 Other specified abnormal findings of blood chemistry; M47.896 Other spondylosis, lumbar region; M54.30 Sciatica, unspecified side; K21.9 Gastro-esophageal reflux disease without esophagitis; E03.9 Hypothyroidism, unspecified; K59.03 Drug induced constipation; M48.061 Spinal stenosis, lumbar region without neurogenic claudication; N30.90 Cystitis, unspecified without hematuria; I10 Essential (primary) hypertension; G31.84 Mild cognitive impairment of uncertain or unknown etiology; E11.9 Type 2 diabetes mellitus without complications; E78.5 Hyperlipidemia, unspecified; E83.42 Hypomagnesemia; E86.0 Dehydration; G89.29 Other chronic pain; K76.0 Fatty (change of) liver, not elsewhere classified; Z79.82 Long term (current) use of aspirin; Z79.899 Other long term (current) drug therapy; Z90.13 Acquired absence of bilateral breasts and nipples; Z90.49 Acquired absence of other specified parts of digestive tract; Z90.711 Acquired absence of uterus with remaining cervical stump; Z79.4 Long term (current) use of insulin; Z98.890 Other specified postprocedural states
CPT/HCPCS: 36415; 74018; 74176; 76705; 80053; 80074; 81001; 82150; 83605; 83690; 83735; 84484; 85025; 85610; 85730; 87077; 87086; 87186; 93005; 96361; 96374; 96375; 99285

== ENCOUNTER → 2020-10-14 | Outpatient (CLI) | payer MEDICARE ==
[2020-10-14 10:16] VITALS: BP 154/83; PULSE 62; RESP 16; TEMP 98.2
--- NOTE | 2020-10-14 10:42 | P.PN ---
Subjective Progress Note Date: 10/14/20 This is an 82-year-old lady with history of chronic lower back pain with ra diation to the lower extremities down to the feet with numbness and tingling in no specific radicular distribution. The pain in the right leg is more intense than her left leg. She received interlaminar epidural steroid injection at the L4 5 level which gave her almost complete relief of lower back pain however she still has pain in both legs. The patient is getting home exercise therapy and getting traction therapy also. She did not notice any improvement with these treatments. Patient denies new-onset weakness, bowel/bladder incontinence, or any other signs or symptoms of cauda equina syndrome. There are no signs of acute intoxication, and no indications of medication diversion or overuse. In addition to above, 13-point review of systems is also negative for chest pain, shortness of breath, changes in vision, changes in hearing, new onset weakness, abdominal pain, diarrhea, extreme fatigue, malaise, fever, skin changes, homicidal or suicidal ideation, or bowel or bladder incontinence. Vital Signs: Reviewed in EMR Gen: AAOx3, NAD HEENT: PERRLA,hearing grossly normal Pulm: resp unlabored Neck: supple, trachea midline Neuro exam of the lower extremities: Decreased right hip flexion to 3 out of 5, decreased knee flexion and extension to 4 out of 5 bilaterally and ankle flexion and extension to 4 out of 5 bilaterally Straight leg raising test: Negative bilaterally Oscar's test: Range of motion of the lumbar spine: Facet loading test: Tenderness in the paravertebral musculature: Positive on the lumbar area bilaterally Neuro: CN II-XII grossly intact, Imaging: Reviewed in EMR/chart Assessment: Lumbar stenosis Lumbar spondylosis without myelopathy Lumbar DDD Diabetes Obesity Plan: 1. Explanation: When patients on opioids, opioid and psychological risk scores were reviewed. Diagnoses, prognoses, and multiple treatment options including but not limited to physical therapy, interventional therapies, adjuvant medical therapies, narcotic medication therapies, and surgery were discussed with the patient and all questions were answered to the patient's satisfaction. 2. Opioid agreement:When patients are prescribed opoids through our clinic, opioid agreement is signed with the patient and the patient is warned not to use opioids while driving or before driving and not to combine opioids with benzodiazepines or alcohol. 3. Counseling: When patient is smoking or obese, the patient was counseled extensively on SMOKING CESSATION, BODY MASS INDEX, EXERCISE. Specifically, the patient was instructed regarding the importance of smoking cessation, obesity, and exercise in the context of both chronic pain and overall health. 4. Procedures: Since the patient had good relief of her lower back pain after the interlaminar epidural steroid injection but not enough relief of pain in the lower extremities we'll plan on doing a transforaminal epidural steroid injection in the L3 4 and L4 5 on the right side under fluoroscopic guidance. The procedure was explained to the patient and her family and her questions were answered. 5. Consultations: Refer to physical therapy 6. Investigations: None 7. Medications: None prescribed 8. Disposition: She do the above-mentioned procedure as well as possible 9. Maps were reviewed and were appropriate. Objective - Vital Signs Vital signs: Vital Signs Temp 98.2 F 10/14/20 10:13 Pulse 62 10/14/20 10:13 Resp 16 10/14/20 10:13 BP 154/83 10/14/20 10:13 Pulse Ox 98 10/14/20 10:13 Intake & Output 10/13/20 10/14/20 10/14/20 18:59 06:59 18:59 Weight 81.647 kg
== END | disposition home or self-care (01) ==
LOC: PNWHC3 09:49
PROVIDERS: ATTEND Anesthesiology
DX: M48.061 Spinal stenosis, lumbar region without neurogenic claudication (principal); M51.36 Other intervertebral disc degeneration, lumbar region; M47.816 Spondylosis without myelopathy or radiculopathy, lumbar region; E11.9 Type 2 diabetes mellitus without complications; E66.9 Obesity, unspecified
CPT/HCPCS: 99211

== ENCOUNTER 2020-11-03 10:56 | Day surgery (SDC) | payer MEDICARE ==
[2020-11-03 11:30] VITALS: RESP 16; TEMP 96.8
[2020-11-03] MEDS ORDERED: LACTATED RINGERS 1,000 ML IV ONE (11:31)
[2020-11-03 11:34] LABS: Glucose,Whole Blood 121 mg/dL (75-99)
[2020-11-03] MEDS ORDERED: methylPREDNISolone ACETATE 40 MG/ML 1 ML VIAL ONE (11:54)
[2020-11-03] MEDS ORDERED: MIDAZOLAM 2 MG/2 ML VIAL ONE (11:54)
[2020-11-03] MEDS ORDERED: fentaNYL (PF) 50 MCG/ML 2 ML AMP ONE (11:54)
[2020-11-03] MEDS ORDERED: IOPAMIDOL M200 10 ML VIAL ONE (11:54)
--- NOTE | 2020-11-03 12:11 | P.PCN ---
Date of Procedure: 11/03/20 Procedure(s) Performed: PREOPERATIVE DIAGNOSIS:1- Lumbar radiculopathy . 2-Lumbar degenerative disc disease POSTOPERATIVE DIAGNOSIS: Same as preoperative diagnoses. PROCEDURE 1. Transforaminal epidural steroid injection under fluoroscopic guidance at right L3-4 ,and L4-5 level. (Fluoroscopy images stored on file in the radiology Department ) 2. Lumbar epidurogram . ANESTHESIA: Local with 1% lidocaine 3 ml , moderate sedation with intravenous Versed 1 mg and fentanyle 100 micrograms. EBL: Minimal PROCEDURE INDICATION: The patient with low back pain and radiculopathy symptoms unresponsive to conservative treatment. PROCEDURE DESCRIPTION / TECHNIQUE: The patient was seen and identified in the preoperative area. Risks, benefits, complications, and alternatives were discussed with the patient. The patient agreed to proceed with the procedure and signed the consent. IV was started, and vital signs were stable. Patient was taken to the OR and time out was completed. The patient was placed in the prone position on procedure table and a pillow was placed under the abdomen to reduce lumbar lordosis. The lumbosacral area was prepped and draped in the usual sterile fashion. Critical pause was taken. Vital signs were closely monitored during the procedure. Conscious sedation was used during the procedure to decrease patient s anxiety. Using oblique fluoroscopy, the chin of the `Carrol[place]as dog at Right L4-5 level was identified, and the skin and deeper tissues just below was localized with 1% lidocaine. Subsequently, a 22-gauge 3.5-inch spinal needle was advanced under a tunneled view fluoroscopic guidance just underneath the chin of the `[place] dog at the right L4-5 Under lateral fluoroscopy, the needle was then advanced to the posterior border of the interforaminal space. After negative aspiration of CSF and blood and with no paresthesias, 1 mL Isovue 200 contrast dye was injected excellent epidurogram and outlining of the nerve root Subsequently, 3 mL of block solution containing 20 mg Depo-Medrol and 2 mL of 0.9% normal saline PF was injected. Needle was removed and the same procedure was repeated at the right L3-4 (s). At the end of the procedure, skin was cleansed, and bandages were applied. COMPLICATIONS:none DISPOSITION / PLANS: The patient was placed in a supine position and transferred to the recovery area in a stable condition for observation. There was no evidence of lower extremity motor or sensory deficit after the procedure. Patient was discharged from the recovery room after meeting discharge criteria. Home discharge instructions were given to the patient by the staff. The patient was reexamined prior to discharge.
[2020-11-03] MEDS ORDERED: IV FLUID CONTINUATION 1,000 ML IV ONE (12:13)
[2020-11-03 12:17] VITALS: PULSE 85
--- NOTE | 2020-11-03 12:19 | FL ---
EXAMINATION TYPE: FL guided pain mgmt statistic DATE OF EXAM: 11/03/2020 HISTORY: Fluoroscopy time 11 seconds of fluoroscopy provided. IMPRESSION: 1. Fluoroscopy time.
[2020-11-03 12:38] VITALS: BP 160/64
== END 2020-11-03 12:53 | disposition home or self-care (01) ==
LOC: ORPAIN 10:56
PROVIDERS: ATTEND Specialist
DX: M51.16 Intervertebral disc disorders with radiculopathy, lumbar region (principal)
CPT/HCPCS: 64483; 64484; J2250; J1030; J3010; Q9966; 99152

== ENCOUNTER 2020-11-05 10:35 | Emergency (ER) | payer MEDICARE ==
[2020-11-05 10:40] VITALS: PULSE 63; RESP 20; TEMP 98.8
[2020-11-05 10:42] VITALS: BP 178/77
[2020-11-05] MEDS ORDERED: HYDROmorphone 0.5 MG/0.5 ML SYRINGE IVP STA (11:51)
[2020-11-05] MEDS ORDERED: ONDANSETRON 4 MG/2 ML VIAL IVP STA (11:51)
[2020-11-05] MEDS ORDERED: KETOROLAC 15 MG/ML 1 ML VIAL IVP STA (11:51)
--- NOTE | 2020-11-05 12:04 | ED ---
Back Pain HPI - General Chief Complaint: Back Pain/Injury Stated Complaint: Back/leg pain Time Seen by Provider: 11/05/20 11:36 Source: patient, family, RN notes reviewed Limitations: physical limitation - History of Present Illness Initial Comments: This an 80-year-old female presents emergency Department chief complaint of back pain. Patient had a recent injection in which she's having worsening back pain. Patient states she has severe leg pain and difficulty ambulate in because of the pain she states she has no weakness denies any bowel, bladder incontinence or retention or saddle anesthesias. Patient states that she is scheduled to see orthopedics associate for her back but states that appointment is in a few weeks. She states she cannot wait for the clinic secondary to the pain. Patient denies any abdominal pain no fevers or chills no night sweats. - Related Data Home Medications Medication Instructions Recorded Confirmed Simvastatin [Zocor] 20 mg PO HS 09/05/20 11/03/20 Acetaminophen [Tylenol Arthritis] 650 mg PO Q8H PRN 10/07/20 11/03/20 Aspirin EC [Ecotrin Low Dose] 81 mg PO DAILY 10/07/20 11/03/20 Biotin 5 mg PO DAILY 10/07/20 11/03/20 Cholecalciferol [Vitamin D3 (25 25 mcg PO DAILY 10/07/20 11/03/20 Mcg = 1000 Iu)] Cyanocobalamin (Vitamin B-12) 1,000 mcg PO DAILY 10/07/20 11/03/20 [Vitamin B-12] Dicyclomine [Bentyl] 10 mg PO DAILY PRN 10/07/20 11/03/20 Gabapentin [Neurontin] 300 mg PO BID 10/07/20 11/03/20 Insulin Glargine,Hum.rec.anlog 10 unit SQ HS 10/07/20 11/03/20 [Lantus Solostar] Levothyroxine Sodium 75 mcg PO MOTUWETHFR 10/07/20 11/03/20 Levothyroxine Sodium 150 mcg PO SUSA 10/07/20 11/03/20 Metoprolol Tartrate [Lopressor] 12.5 mg PO BID 10/07/20 11/03/20 amLODIPine [Norvasc] 10 mg PO DAILY 10/07/20 11/03/20 Chlorthalidone [Hygroton] 25 mg PO DAILY 10/13/20 11/03/20 Previous Rx's Medication Instructions Recorded Psyllium Husk 100% [Metamucil 6 gm PO BID #0 10/09/20 Packet] HYDROcodone/APAP 5-325MG [[place] 5] 1 each PO Q6HR PRN #12 tab 11/05/20 Allergies Allergy/AdvReac Type Severity Reaction Status Date / Time No Known Allergies Allergy Verified 11/05/20 13:34 Review of Systems ROS Statement: Those systems with pertinent positive or pertinent negative responses have been documented in the HPI. ROS Other: All systems not noted in ROS Statement are negative. Past Medical History Past Medical History: Diabetes Mellitus, Hyperlipidemia, Hypertension, Memory Impairment, Renal Disease, Thyroid Disorder Additional Past Medical History / Comment(s): chronic back pain History of Any Multi-Drug Resistant Organisms: None Reported Past Surgical History: Bladder Surgery, Breast Surgery, Cholecystectomy, Joint Replacement Additional Past Surgical History / Comment(s): bladder suspension, partial hysterectomy. double mastectomy. Epidural injections Past Psychological History: No Psychological Hx Reported Smoking Status: Never smoker Past Alcohol Use History: None Reported Past Drug Use History: None Reported - Past Family History Mother Family Medical History: Dementia Brother(s) Family Medical History: Dementia, Myocardial Infarction ([place]) General Exam Limitations: physical limitation General appearance: alert, in no apparent distress Head exam: Present: atraumatic, normocephalic, normal inspection Eye exam: Present: normal appearance, PERRL, EOMI. Absent: scleral icterus, conjunctival injection, periorbital swelling ENT exam: Present: normal exam, normal oropharynx, mucous membranes moist Neck exam: Present: normal inspection, full ROM. Absent: tenderness, meningismus, lymphadenopathy Respiratory exam: Present: normal lung sounds bilaterally. Absent: respiratory distress, wheezes, rales, rhonchi, stridor Cardiovascular Exam: Present: regular rate, normal rhythm, normal heart sounds. Absent: systolic murmur, diastolic murmur, rubs, gallop, clicks Extremities exam: Present: other (Lower extremity neurovascular intact, pain with range of motion) Back exam: Present: tenderness, paraspinal tenderness. Absent: full ROM Course Vital Signs 11/05/20 10:37 Temperature 98.8 F Pulse Rate 63 Respiratory 20 Rate Blood Pressure 178/77 O2 Sat by Pulse 97 Oximetry Medical Decision Making - Medical Decision Making 6-year-old female presented for increasing pain after injection. Patient has no red flag symptoms. CT does not show any evidence of fluid collection. Patient family contacted orthopedics in which they have an appointment tomorrow now. Patient's pain is improved we discharged with pain medication return parameters were discussed. Disposition Clinical Impression: Low back pain Disposition: HOME SELF-CARE Condition: Stable Instructions (If sedation given, give patient instructions): Acute Low Back Pain (ED) Additional Instructions: Please return to the Emergency Department if symptoms worsen or any other concerns. Prescriptions: HYDROcodone/APAP 5-325MG [[place] 5] 1 each PO Q6HR PRN #12 tab PRN Reason: Pain Is patient prescribed a controlled substance at d/c from ED?: Yes When asked, does pt state using other controlled substances?: Yes If prescribed controlled substance>3 days was MAPS reviewed?: Prescribed <3 Days If opioid is for acute pain is fill amount 7 days or less?: Yes If Rx opioid, was Start Talking consent form obtained?: Yes Referrals: Minda Prater DO [Primary Care Provider] - 1-2 days Unique Mercer DO [Doctor of Osteopathic Medicine] - 1-2 days Time of Disposition: 13:44
--- NOTE | 2020-11-05 12:44 | CT ---
EXAMINATION TYPE: CT lumbar spine wo con DATE OF EXAM: 11/05/2020 12:32 PM COMPARISON: 09/05/2020 HISTORY: Lumbar pain CT DLP: 964.5 mGycm Automated exposure control for dose reduction was used. Unenhanced CT of the lumbar spine was performed. Bone and soft tissue window settings are submitted as well as coronal and sagittal reconstructions. L1-L2: Moderate degenerative disc disease with hypertrophic spurring. Facet arthropathy. No obvious c anal stenosis or foraminal encroachment. L2-L3: Severe degenerative disc disease with vacuum disc and discogenic marrow changes. There is face t arthropathy with circumferential disc bulging, severe canal stenosis and bilateral foraminal encroa chment. Air bubble within the spinal canal likely related to vacuum disc. L3-L4: Severe degenerative disc disease with vacuum disc. Facet arthropathy and diffuse disc bulging with ligamentum flavum hypertrophy with moderate to severe canal stenosis and bilateral foraminal enc roachment. L4-L5: Advanced facet arthropathy with grade 1 anterolisthesis. There is bilateral lateral recess laurel nosis and broad-based disc protrusion with severe canal stenosis and bilateral foraminal encroachment . L5-S1: Severe degenerative disc disease with vacuum disc and advanced facet arthropathy. Broad-based disc bulging with mild canal stenosis and bilateral foraminal encroachment. Postcholecystectomy changes. There are bilateral SI joint arthropathy. Atherosclerotic change aorta. Motion artifact likely accounts for the density adjacent to the liver rather than a small amount of f luid. Diverticulosis of the colon. IMPRESSION: Severe multilevel degenerative disc disease with grade 1 anterolisthesis L4 on L5. Multilevel signifi cant canal stenosis most marked at L4-5 as discussed above. Could not exclude extruded disc herniatio n level L2-L3. Recommend follow-up MRI for assessment canal stenosis and foraminal encroachment.
== END 2020-11-05 14:01 | disposition home or self-care (01) ==
LOC: EC 10:35
DX: M54.5 Low back pain (principal); M79.606 Pain in leg, unspecified; I10 Essential (primary) hypertension; E78.5 Hyperlipidemia, unspecified; E11.9 Type 2 diabetes mellitus without complications; E07.9 Disorder of thyroid, unspecified; Z79.890 Hormone replacement therapy; Z79.899 Other long term (current) drug therapy; Z79.4 Long term (current) use of insulin
CPT/HCPCS: 72131; 99283; 96374; 96375; J2405; J1885; J1170

== ENCOUNTER 2020-11-16 19:21 | Inpatient (IN) | payer MEDICARE ==
[2020-11-16] MEDS ORDERED: MORPHINE SULFATE 4 MG/ML SYRINGE IVP STA ×2 (20:59→22:37)
[2020-11-16] MEDS ORDERED: diphenhydrAMINE 50 MG/ML 1 ML VIAL IVP STA (21:16)
[2020-11-16] MEDS ORDERED: ONDANSETRON 4 MG/2 ML VIAL IVP STA (21:17)
[2020-11-16 21:53] LABS: Albumin 3.7 g/dL (3.5-5.0); Calcium 9.9 mg/dL (8.4-10.2); Total Bilirubin 0.3 mg/dL (0.2-1.3); Total Protein 6.2 g/dL (6.3-8.2)
--- NOTE | 2020-11-16 21:53 | ED ---
Back Pain HPI - General Chief Complaint: Back Pain/Injury Stated Complaint: Back Pain Source: EMS Limitations: physical limitation - History of Present Illness Initial Comments: 80-year-old female with history of chronic back pain presents to the emergency department with a chief complaint of back pain. Family member states the patient has been extremity pain since March and she has underwent a spinal nerve block by Dr. Schulz which helped alleviate the symptoms for about 6 months and now they have returned. States she also recently had another nerve block which did not seem to work as well. States the patient was evaluated with a CAT scan MRI of the lumbar spine by Dr. Mercer and she was noted to have multiple herniated disks in the lumbar spine. The family member states the patient is not able to sleep or perform any of her daily activities due to the pain. States she was given Renick for the pain that she takes every 6 hours but it is not helping with the pain. Patient reports no other injury but the pain is located in the lumbar region with no significant radiation to the legs. She denies any saddle anesthesia, urinary retention with overflow or bowel incontinence. - Related Data Home Medications Medication Instructions Recorded Confirmed Simvastatin [Zocor] 20 mg PO HS 09/05/20 11/05/20 Acetaminophen [Tylenol Arthritis] 650 mg PO Q8H PRN 10/07/20 11/05/20 Aspirin EC [Ecotrin Low Dose] 81 mg PO DAILY 10/07/20 11/05/20 Biotin 5 mg PO DAILY 10/07/20 11/05/20 Cholecalciferol [Vitamin D3 (25 25 mcg PO DAILY 10/07/20 11/05/20 Mcg = 1000 Iu)] Cyanocobalamin (Vitamin B-12) 1,000 mcg PO DAILY 10/07/20 11/05/20 [Vitamin B-12] Gabapentin [Neurontin] 300 mg PO BID 10/07/20 11/05/20 Insulin Glargine,Hum.rec.anlog 10 unit SQ HS 10/07/20 11/05/20 [Lantus Solostar Pen] Levothyroxine Sodium 75 mcg PO MOTUWETHFR 10/07/20 11/05/20 Levothyroxine Sodium 150 mcg PO SUSA 10/07/20 11/05/20 Metoprolol Tartrate [Lopressor] 12.5 mg PO BID 10/07/20 11/05/20 amLODIPine [Norvasc] 5 mg PO HS 10/07/20 11/05/20 Chlorthalidone [Hygroton] 25 mg PO DAILY 10/13/20 11/05/20 Cyclobenzaprine [Flexeril] 5 mg PO Q8H 11/05/20 11/05/20 Losartan Potassium 100 mg PO DAILY 11/05/20 11/05/20 Olmesartan Medoxomil 40 mg PO DIRECTED 11/05/20 11/05/20 Pantoprazole Sodium [Protonix] 40 mg PO BID 11/05/20 11/05/20 Previous Rx's Medication Instructions Recorded Psyllium Husk 100% [Metamucil 6 gm PO BID #0 10/09/20 Packet] HYDROcodone/APAP 5-325MG [[place] 5] 1 each PO Q6HR PRN #12 tab 11/05/20 Allergies Allergy/AdvReac Type Severity Reaction Status Date / Time No Known Allergies Allergy Verified 11/05/20 13:34 Review of Systems ROS Statement: Those systems with pertinent positive or pertinent negative responses have been documented in the HPI. ROS Other: All systems not noted in ROS Statement are negative. Past Medical History Past Medical History: Diabetes Mellitus, Hyperlipidemia, Hypertension, Memory Impairment, Renal Disease, Thyroid Disorder Additional Past Medical History / Comment(s): chronic back pain History of Any Multi-Drug Resistant Organisms: None Reported Past Surgical History: Bladder Surgery, Breast Surgery, Cholecystectomy, Joint Replacement Additional Past Surgical History / Comment(s): bladder suspension, partial hysterectomy. double mastectomy. Epidural injections Past Psychological History: No Psychological Hx Reported Smoking Status: Never smoker Past Alcohol Use History: None Reported Past Drug Use History: None Reported - Past Family History Mother Family Medical History: Dementia Brother(s) Family Medical History: Dementia, Myocardial Infarction ([place]) General Exam Limitations: physical limitation General appearance: alert, in no apparent distress, obese Head exam: Present: atraumatic, normocephalic, normal inspection Eye exam: Present: normal appearance Pupils: Present: normal accommodation ENT exam: Present: normal exam, normal oropharynx, mucous membranes moist Neck exam: Present: normal inspection, full ROM. Absent: tenderness, lymphadenopathy Respiratory exam: Present: normal lung sounds bilaterally. Absent: respiratory distress Cardiovascular Exam: Present: regular rate, normal rhythm, normal heart sounds. Absent: systolic murmur GI/Abdominal exam: Present: soft. Absent: distended, tenderness, guarding, rebound Extremities exam: Present: normal inspection, full ROM, normal capillary refill Back exam: Present: normal inspection, full ROM, tenderness, vertebral te nderness (Lumbar tenderness) Neurological exam: Present: alert, oriented X3 Psychiatric exam: Present: normal affect, normal mood Skin exam: Present: warm, dry, intact, normal color Course Vital Signs 11/16/20 19:53 Temperature 97.4 F L Pulse Rate 84 Respiratory 20 Rate Blood Pressure 160/102 O2 Sat by Pulse 99 Oximetry Medical Decision Making - Medical Decision Making 80-year-old female with history of chronic back pain presents to the emergency department with a chief complaint of back pain. On physical examination, lower lumbar tenderness. Patient sees Dr. Mercer and Dr schulz. I gave the patient 2 rounds of 4 mg of morphine with no significant improvement of symptoms. Laboratory work reveals hyponatremia, hypokalemia. Patient was given saline and oral potassium. Patient has already had CTs\ and MRI of her lumbar back to confirm the disc herniation. She will be admitted for intractable back pain. I did discuss the case with who will admit. case discused wit hattending dr rush ortho consult - Lab Data Result diagrams: 11/16/20 Unknown 11/16/20 Unknown Lab Results 11/16/20 11/16/20 Range/Units Unknown Unknown WBC 6.4 (3.8-10.6) k/uL RBC 3.96 (3.80-5.40) m/uL Hgb 12.9 (11.4-16.0) gm/dL Hct 36.1 (34.0-46.0) % MCV 91.2 (80.0-100.0) fL MCH 32.5 (25.0-35.0) pg MCHC 35.7 (31.0-37.0) g/dL RDW 14.5 (11.5-15.5) % Plt Count 208 (150-450) k/uL MPV 7.2 Neutrophils % 66 % Lymphocytes % 26 % Monocytes % 6 % Eosinophils % 1 % Basophils % 1 % Neutrophils # 4.2 (1.3-7.7) k/uL Lymphocytes # 1.6 (1.0-4.8) k/uL Monocytes # 0.4 (0-1.0) k/uL Eosinophils # 0.1 (0-0.7) k/uL Basophils # 0.0 (0-0.2) k/uL Sodium 128 L (137-145) mmol/L Potassium 3.3 L (3.5-5.1) mmol/L Chloride 94 L (98-107) mmol/L Carbon Dioxide 24 (22-30) mmol/L Anion Gap 10 mmol/L BUN 24 H (7-17) mg/dL Creatinine 0.84 (0.52-1.04) mg/dL Est GFR (CKD-EPI)AfAm 75 (>60 ml/min/1.73 sqM) Est GFR (CKD-EPI)NonAf 65 (>60 ml/min/1.73 sqM) Glucose 161 H (74-99) mg/dL Calcium 9.9 (8.4-10.2) mg/dL Total Bilirubin 0.3 (0.2-1.3) mg/dL AST 37 H (14-36) U/L ALT 20 (4-34) U/L Alkaline Phosphatase 49 (38-126) U/L Total Protein 6.2 L (6.3-8.2) g/dL Albumin 3.7 (3.5-5.0) g/dL Disposition Clinical Impression: Intractable low back pain, Hypokalemia Disposition: ADMITTED IP TO THIS [facility] Condition: Fair Instructions (If sedation given, give patient instructions): Acute Low Back Pain (ED) Is patient prescribed a controlled substance at d/c from ED?: No Referrals: Minda Prater DO [Primary Care Provider] - 1-2 days Time of Disposition: 00:03
[2020-11-16 21:59] LABS: Potassium 3.3 mmol/L (3.5-5.1)
[2020-11-16 22:11] LABS: Basophils % (A) 1 %; Eosinophils # (A) 0.1 k/uL (0-0.7); Eosinophils % (A) 1 %; HCT 36.1 % (34.0-46.0); HGB 12.9 gm/dL (11.4-16.0); Lymphocytes # (A) 1.6 k/uL (1.0-4.8); Lymphocytes % (A) 26 %; MCH 32.5 pg (25.0-35.0); MCHC 35.7 g/dL (31.0-37.0); MCV 91.2 fL (80.0-100.0); Mean Platelet Volume 7.2; Monocytes # (A) 0.4 k/uL (0-1.0); Monocytes % (A) 6 %; Neutrophils # (A) 4.2 k/uL (1.3-7.7); Neutrophils % (A) 66 %; Platelet Count 208 k/uL (150-450); RBC 3.96 m/uL (3.80-5.40); RDW 14.5 % (11.5-15.5); WBC 6.4 k/uL (3.8-10.6)
[2020-11-16] MEDS ORDERED: NALOXONE 0.4 MG/ML 1 ML VIAL IV PRN (23:57)
[2020-11-16] MEDS ORDERED: ONDANSETRON 4 MG/2 ML VIAL IVP PRN (23:57)
[2020-11-16] MEDS ORDERED: SODIUM CHLORIDE 0.9% 500 ML 500 ML IV STA (23:58)
[2020-11-16] MEDS ORDERED: POTASSIUM CHLORIDE ER 10 MEQ TAB.ER.PRT PO STA (23:59)
[2020-11-17] MEDS: SODIUM CHLORIDE 0.9% 1,000 ML IV SCH ×2 (00:45→10:34)
[2020-11-17] MEDS: MORPHINE SULFATE 4 MG/ML SYRINGE IV PRN ×3 (04:07→21:04)
[2020-11-17] MEDS ORDERED: HYDROmorphone 0.5 MG/0.5 ML SYRINGE IVP STA (05:53)
[2020-11-17 06:53] LABS: Glucose,Whole Blood 120 mg/dL (75-99)
[2020-11-17 07:02] LABS: Amorphous Sediment,Urine Rare /hpf; Appearance,Urine Cloudy (Clear); Bacteria,Urine Few /hpf; Bilirubin,Urine Negative (Negative); Blood,Urine Small (Negative); Color,Urine Yellow; Glucose,Urine (UA) Negative (Negative); Ketones,Urine Negative (Negative); Leukocyte Esterase,Urine Moderate (Negative); Nitrite,Urine Negative (Negative); PH, Urine 7.5 (5.0-8.0); Protein,Urine Trace (Negative); RBC,Urine 24 /hpf (0-5); Specific Gravity,Urine 1.009 (1.001-1.035); Squamous Epithelial Cell,Urine 2 /hpf (0-4); Urobilinogen,Urine <2.0 mg/dL (<2.0); WBC,Urine 17 /hpf (0-5)
[2020-11-17] MEDS ORDERED: ACETAMINOPHEN TAB 325 MG TAB PO PRN (09:42)
[2020-11-17] MEDS ORDERED: GABAPENTIN 300 MG CAP PO PRN (09:54)
[2020-11-17] MEDS ORDERED: LEVOTHYROXINE 75 MCG TAB PO ONE (10:15)
[2020-11-17] MEDS: METOPROLOL TARTRATE 12.5 MG TAB PO SCH ×2 (10:30→21:02)
[2020-11-17] MEDS: CYCLOBENZAPRINE 5 MG TAB PO SCH ×3 (10:30→22:44)
[2020-11-17] MEDS: LOSARTAN 50 MG TAB PO SCH (10:30)
[2020-11-17] MEDS: CHLORTHALIDONE 25 MG TAB PO SCH (10:58)
[2020-11-17 11:27] LABS: Glucose,Whole Blood 198 mg/dL (75-99)
--- NOTE | 2020-11-17 13:06 | P.CNOR ---
History of Present Illness - [facility] Consult date: 11/17/20 Requesting physician: Taz Nova Consult reason: other (Severe right lower extremity radiculopathy) History of present illness: She is a well-known 80-year-old female who is seen and examined emergency department for evaluation of her lumbar spine. She is known have significant degenerative changes with significant stenosis at her lumbar spine. In the outpatient setting she has been working through conservative treatment options with pain management without significant benefit. She has been seen and evaluated in the emergency department recently on 11/05/2020 and again today due to her significant lower extremity radiculopathy. She has weakness due to her pain. She has difficulty ambulation regular activities of daily living. She has some back pain but her lower extremity leg symptoms are most significant symptoms. She has severe pain radiating down the right lower extremity. Due to her significant difficulty with regular activities of daily living and pain she presented to the hospital for further evaluation today. She is admitted to medicine and is being seen and examined at bedside by Dr. Johansen in medicine. Medicine states they will clear the patient for surgical intervention. Patient's other medical diagnoses include diabetes mellitus, hyperlipidemia, hypertension, renal disease, history of cancer, and thyroid disorder. Patient is seen and examined with her family present. She recently had lumbar CT imaging performed as well. Past Medical History Past Medical History: Diabetes Mellitus, Hyperlipidemia, Hypertension, Memory Impairment, Renal Disease, Thyroid Disorder Additional Past Medical History / Comment(s): chronic back pain History of Any Multi-Drug Resistant Organisms: None Reported Past Surgical History: Bladder Surgery, Breast Surgery, Cholecystectomy, Joint Replacement Additional Past Surgical History / Comment(s): bladder suspension, partial hysterectomy. double mastectomy. Epidural injections Past Anesthesia/Blood Transfusion Reactions: No Reported Reaction Past Psychological History: No Psychological Hx Reported Smoking Status: Never smoker Past Alcohol Use History: None Reported Past Drug Use History: None Reported - Past Family History Mother Family Medical History: Dementia Brother(s) Family Medical History: Dementia, Myocardial Infarction ([place]) Medications and Allergies Home Medications Medication Instructions Recorded Confirmed Type Simvastatin [Zocor] 20 mg PO HS 09/05/20 11/17/20 History Acetaminophen [Tylenol Arthritis] 650 mg PO Q8H PRN 10/07/20 11/17/20 History Aspirin EC [Ecotrin Low Dose] 81 mg PO DAILY 10/07/20 11/17/20 History Biotin 5 mg PO DAILY 10/07/20 11/17/20 History Cholecalciferol [Vitamin D3 (25 25 mcg PO DAILY 10/07/20 11/17/20 History Mcg = 1000 Iu)] Cyanocobalamin (Vitamin B-12) 1,000 mcg PO DAILY 10/07/20 11/17/20 History [Vitamin B-12] Gabapentin [Neurontin] 300 mg PO TID PRN 10/07/20 11/17/20 History Insulin Glargine,Hum.rec.anlog 10 - 12 unit SQ HS 10/07/20 11/17/20 History [Lantus Solostar Pen] Levothyroxine Sodium 150 mcg PO Q48H 10/07/20 11/17/20 History Metoprolol Tartrate [Lopressor] 12.5 mg PO BID 10/07/20 11/17/20 History amLODIPine [Norvasc] 5 mg PO HS 10/07/20 11/17/20 History Psyllium Husk 100% [Metamucil 6 gm PO BID #0 10/09/20 11/17/20 Rx Packet] Chlorthalidone [Hygroton] 25 mg PO DAILY 10/13/20 11/17/20 History Cyclobenzaprine [Flexeril] 5 mg PO Q8H 11/05/20 11/17/20 History Losartan Potassium 100 mg PO DAILY 11/05/20 11/17/20 History Olmesartan Medoxomil 40 mg PO DAILY 11/05/20 11/17/20 History Pantoprazole Sodium [Protonix] 40 mg PO BID 11/05/20 11/17/20 History HYDROcodone/APAP 5-325MG [[place] 5] 1 tab PO Q8H PRN 11/17/20 11/17/20 History Allergies Allergy/AdvReac Type Severity Reaction Status Date / Time No Known Allergies Allergy Verified 11/17/20 07:26 Physical Examination Physical exam: Patient is awake, alert, and oriented 3 Vital signs stable Adequate chest excursion with deep inspiration and expiration Examination of lumbar spine reveals skin is intact with no abrasions, lacerations, or bruises; no erythema, purulence or signs of infection No significant pain with palpation over the lumbar spine Dorsiflexion, plantarflexion, and extensor hallucis longus positive sustained bilaterally Lower extremity strength 5/5 bilaterally Evidence of a well-healed incision with the right anterior knee Patient has significant difficulty lifting her right lower extremity off the bed No signs or symptoms of DVT; no calf pain No pain with internal and external rotation of the hips bilaterally Neurovascularly intact Results Pertinent studies: MRI of the lumbar spine taken outside facility: L2-3 large herniated nucleus pulposus and facet arthropathy resulting in severe spinal canal stenosis and neural foraminal stenosis; L3-4 degenerative disc disease, herniated distal pulses, and facet arthropathy resulting in spinal canal stenosis; L4-5 spondylolisthesis, degenerative disc disease, herniated nucleus pulposus, and facet arthropathy resulting in severe spinal canal stenosis CT lumbar spine taken on 11/05/2020: L1-2 degenerative disc disease and facet arthropathy; L2-3 severe degenerative disc disease, facet arthropathy, disc bulging, and vacuum disc with discogenic marrow changes resulting in severe spinal canal stenosis; L3-4 severe degenerative disc disease with vacuum disc phenomenon, facet arthropathy, and diffuse disc bulging with ligamentum flavum hypertrophy resulting in moderate to severe spinal canal stenosis; L4-5 advanced facet arthropathy, grade 1 spondylolisthesis, broad-based central disc protrusion with severe spinal canal stenosis and bilateral lateral recess stenosis; L5-S1 severe degenerative disc disease with vacuum disc phenomenon and advanced facet arthropathy with broad-based disc bulge resulting in mild spinal stenosis - Labs Labs: Abnormal Lab Results - Last 24 Hours (Table) 11/16/20 11/17/20 11/17/20 Range/Units Unknown 06:14 06:51 Sodium 128 L (137-145) mmol/L Potassium 3.3 L (3.5-5.1) mmol/L Chloride 94 L (98-107) mmol/L BUN 24 H (7-17) mg/dL Glucose 161 H (74-99) mg/dL POC Glucose (mg/dL) 120 H (75-99) mg/dL AST 37 H (14-36) U/L Total Protein 6.2 L (6.3-8.2) g/dL Urine Appearance Cloudy H (Clear) Urine Protein Trace H (Negative) Urine Blood Small H (Negative) Ur Leukocyte Esterase Moderate H (Negative) Urine RBC 24 H (0-5) /hpf Urine WBC 17 H (0-5) /hpf Amorphous Sediment Rare H (None) /hpf Urine Bacteria Few H (None) /hpf 11/17/20 Range/Units 11:26 Sodium (137-145) mmol/L Potassium (3.5-5.1) mmol/L Chloride (98-107) mmol/L BUN (7-17) mg/dL Glucose (74-99) mg/dL POC Glucose (mg/dL) 198 H (75-99) mg/dL AST (14-36) U/L Total Protein (6.3-8.2) g/dL Urine Appearance (Clear) Urine Protein (Negative) Urine Blood (Negative) Ur Leukocyte Esterase (Negative) Urine RBC (0-5) /hpf Urine WBC (0-5) /hpf Amorphous Sediment (None) /hpf Urine Bacteria (None) /hpf H & H 11/16/20 Range/Units Unknown Hgb 12.9 (11.4-16.0) gm/dL Hct 36.1 (34.0-46.0) % Result Diagrams: 11/16/20 Unknown 11/16/20 Unknown Assessment and Plan Assessment: Assessment: L2-3 severe spinal canal stenosis L3-4 moderate to severe spinal canal stenosis L4-5 severe spinal canal stenosis Neurogenic claudication Lumbar facet arthropathy Lumbosacral facet arthropathy Lumbar degenerative disc disease Lumbosacral degenerative disc disease L4-5 spondylolisthesis Intractable right lower extremity radiculopathy Low back pain Diabetes mellitus Hyperlipidemia Hypertension Renal disease History of cancer Thyroid disorder (1) Lumbar spinal stenosis Current Visit: Yes Status: Acute Code(s): M48.061 - SPINAL STENOSIS, LUMBAR REGION WITHOUT NEUROGENIC CRISTOFER SNOMED Code(s): 99031020 (2) Lumbar degenerative disc disease Current Visit: Yes Status: Acute Code(s): M51.36 - OTHER INTERVERTEBRAL DISC DEGENERATION, LUMBAR REGION SNOMED Code(s): 71051737 (3) DDD (degenerative disc disease), lumbosacral Current Visit: Yes Status: Acute Code(s): M51.37 - OTHER INTERVERTEBRAL DISC DEGENERATION, LUMBOSACRAL REGION SNOMED Code(s): 25311357 (4) Spondylolisthesis, lumbar region Current Visit: Yes Status: Acute Code(s): M43.16 - SPONDYLOLISTHESIS, LUMBAR REGION SNOMED Code(s): 047783679890237 (5) Facet arthritis of lumbar region Current Visit: Yes Status: Acute Code(s): M47.816 - SPONDYLOSIS W/O MYELOPATHY OR RADICULOPATHY, LUMBAR REGION SNOMED Code(s): 80330160056618201 (6) Facet arthritis of lumbosacral region Current Visit: Yes Status: Acute Code(s): M47.817 - SPONDYLS W/O MYELOPATHY OR RADICULOPATHY, LUMBOSACR REGION SNOMED Code(s): 134617500 (7) Lumbar back pain with radiculopathy affecting right lower extremity Current Visit: Yes Status: Acute Code(s): M54.16 - RADICULOPATHY, LUMBAR REGION SNOMED Code(s): 866085404 (8) Diabetes mellitus Current Visit: Yes Status: Acute Code(s): E11.9 - TYPE 2 DIABETES MELLITUS WITHOUT COMPLICATIONS SNOMED Code(s): 69984465 (9) Hyperlipidemia Current Visit: Yes Status: Acute Code(s): E78.5 - HYPERLIPIDEMIA, U NSPECIFIED SNOMED Code(s): 64896062 (10) Hypertension Current Visit: Yes Status: Acute Code(s): I10 - ESSENTIAL (PRIMARY) HYPERTENSION SNOMED Code(s): 95411421 (11) Renal disease Current Visit: Yes Status: Acute Code(s): N28.9 - DISORDER OF KIDNEY AND URETER, UNSPECIFIED SNOMED Code(s): 29826724 (12) History of cancer Current Visit: Yes Status: Acute Code(s): Z85.9 - PERSONAL HISTORY OF MALIGNANT NEOPLASM, UNSPECIFIED SNOMED Code(s): 728651385 (13) Thyroid disorder Current Visit: Yes Status: Acute Code(s): E07.9 - DISORDER OF THYROID, UNSPECIFIED SNOMED Code(s): 23769685 (14) Neurogenic claudication Current Visit: Yes Status: Acute Code(s): M48.062 - SPINAL STENOSIS, LUMBAR REGION WITH NEUROGENIC CLAUDICATION SNOMED Code(s): 673799783 Plan: Plan: 1. Patient has been discussed in detail with Dr. Harjeet Mercer. Patient has been working through conservative treatment options and the outpatient setting without significant benefit. She has had injections or lumbar spine without benefit. She is having difficulty with regular activities of daily living giving her symptoms. She experienceds severe right lower extremity radiculopathy. She feels weakness due to pain in her right lower extremity. Review of imaging does show multilevel severe spinal canal stenosis with her most significant levels at L2-3, L3-4, and L4-5. At this time she is failing conservative treatment options. She has difficulty with regular activities of daily living due to her symptoms. After further discussion with the patient and her family, reviewing of imaging, and further discussion with Dr. Harjeet Mercer, we'll currently plan to proceed forward with scheduling surgical intervention as she has failed conservative treatment options. She has significant indications for surgical intervention and we feel she could benefit with surgery at her lumbar spine. We did discuss the proposed surgical intervention is an L2-3, L3- 4, and L4-5 laminectomy and decompression with discectomy We'll currently plan to schedule surgery for this coming , 11/19/2020. Patient will become nothing by mouth status starting at midnight on 11/19/2020 in anticipation for surgical intervention. Patient will continue be seen and examined by medicine for her other medical diagnoses. Medicine plans to clear the patient for surgical intervention. Plan of care is discussed in detail with the patient and her family who all agree with this plan. This may continue with pain control medications as prescribed by medicine including hydrocodone 5 mg/325 mg, gabapentin 300 mg, cyclobenzaprine 5 mg, and acetaminophen 650 mg. We will continue to follow patient closely. I discussed these issues with the patient at length and I answered all of their questions to the best of my ability and the patient understands. I discussed the risk of surgical intervention and alternative treatment options. The risk of surgical intervention was explained to the patient in detail including but not limited to risk of bleeding, risk of infection, risk and need for further surgery, risk of decreased loss of motion of function, malunion, nonunion, hardware failure, nerve damage, paralysis, heart attack, , as well as the fact that surgery may not alleviate her symptoms. I answered all the patient's questions the best of my ability. The patient would like to proceed forward with surgical intervention and will sign informed consent. Time with Patient: Greater than 30
--- NOTE | 2020-11-17 16:14 | ECHOF ---
Referral Reason:pre-op MEASUREMENTS -------- HEIGHT: 160.0 cm WEIGHT: 83.5 kg BP: IVSd: 1.4 cm (0.6 - 1.1) LVIDd: 3.4 cm (3.9 - 5.3) LVPWd: 1.6 cm (0.6 - 1.1) EDV(Teich): 47 ml IVSs: 1.8 cm LVIDs: 1.7 cm LVPWs: 2.0 cm %IVS Thck: 35 % ESV(Teich): 8 ml EF(Teich): 82 % %FS: 50 % SV(Teich): 38 ml LVOT Diam: 1.5 cm RVIDd: 3.6 cm (< 3.3) JENA Planimetry: 1.9 cm Ao Diam: 3.3 cm (2.0 - 3.7) LA Diam: 3.9 cm (2.7 - 3.8) AV Cusp: 1.4 cm (1.5 - 2.6) EPSS: 0.5 cm MV E Fito: 0.28 m/s MV DecT: 201 ms MV Dec [place]: 1.4 m/s MV A Fito: 0.42 m/s MV E/A Ratio: 0.67 MV PHT: 58 ms LVOT Vmax: 0.66 m/s LVOT maxP.75 mmHg AV Vmax: 1.88 m/s AV maxP.19 mmHg JENA Vmax, Pt: 0.6 cm AV Vmax: 1.96 m/s AV Vmean: 1.28 m/s AV maxP.33 mmHg AV meanP.82 mmHg AV Env.Ti: 329 ms AV VTI: 42.0 cm JENA Vmax, Pt: 0.6 cm AR Vmax: 2.11 m/s AR maxP.75 mmHg AR PHT: 919 ms AR Dec Time: 3169 ms AR Dec [place]: 0.7 m/s TR Vmax: 2.13 m/s TR maxP.10 mmHg RAP: 5.00 mmHg RVSP: 23.10 mmHg MV EF SLOPE: 74.79 mm/s (70 - 150) MV EXCURSION: 16.79 mm (> 18.000) FINDINGS -------- This was a technically difficult study with suboptimal views. The left ventricular size is normal. There is moderate concentric left ventricular hypertrophy. O verall left ventricular systolic function is normal with, an EF between 55 - 60 %. The right ventricle is mildly enlarged. The left atrial size is normal. The right atrial size is normal. Lumason used Aortic valve is trileaflet and is mildly thickened. Trace amount of aortic regurgitation. There is mild aortic stenosis present. Peak/mean gradient across the Aortic Valve is 15.33mmHg / 7.82mmHg . The mitral valve is normal. The mitral valve leaflets are mildly thickened. There is trace mitral regurgitation. The tricuspid valve appears structurally normal. Mild tricuspid regurgitation present. Right vent ricular systolic pressure is normal at < 35 mmHg. There is no pulmonic regurgitation present. The aortic root size is normal. IVC Not well visulized. There is no pericardial effusion. CONCLUSIONS -------- 1. The left ventricular size is normal. 2. There is moderate concentric left ventricular hypertrophy. 3. Overall left ventricular systolic function is normal with, an EF between 55 - 60 %. 4. The right ventricle is mildly enlarged. 5. Aortic valve is trileaflet and is mildly thickened. 6. Trace amount of aortic regurgitation. 7. There is mild aortic stenosis present. 8. Peak/mean gradient across the Aortic Valve is 15.33mmHg / 7.82mmHg. 9. The mitral valve leaflets are mildly thickened. 10. There is trace mitral regurgitation. 11. Mild tricuspid regurgitation present. 12. There is no pericardial effusion. HAT BRAIDER: Gertrudis Vernon RDCS
[2020-11-17] MEDS: PANTOPRAZOLE 40 MG TABLET PO SCH (17:18)
--- NOTE | 2020-11-17 18:24 | P.HPIM ---
History of Present Illness H&P Date: 11/17/20 Chief Complaint: Increasing lower back pain History of presenting complaint: This is a 80-year-old patient who follows with Dr. Minda arechiga. Chronic stable medical conditions include hypertension, hyperlipidemia, diabetes, osteoarthritis. Does use a walker. Admitted on 09/05/2020 with acute on chronic low back pain. MRI of the lumbar spine showed : spondylosis spinal stenosis. underwent epidural steroid injection and L3-L4. Seen by Dr. Mercer from orthopedic spine. Also by Dr. Wilson from neurology. Patient has declined any major surgical intervention. Then admitted to the hospital on November 05 with hyponatremia, possibly gastritis and duodenitis. And constipation. Patient was doing well upon discharge. Patient's had again progressive increasing pain primarily in the lower extremity on the posterior surface. Finding it difficult to walk. She does use a bedside,. No fever no chills. Appetite is good. Having bowel movements. Patient also had a recent ER visit on November 05. Also has had further lumbar injections by Dr. Chandler from the pain medication team. Review of systems: GEN.: Tired EYES: None HEENT: None NECK: None RESPIRATORY: None CARDIOVASCULAR: None GASTROINTESTINAL: Some heartburn GENITOURINARY: None MUSCULOSKELETAL: As above LYMPHATICS: None HEMATOLOGICAL: None PSYCHIATRY: Forgetful NEUROLOGICAL: Weak In the legs, Past medical history to include: Diabetes, hypertension, hyperlipidemia, memory impairment, chronic kidney disease, hypothyroid, chronic low back pain with arthritis, spinal stenosis Social history: Does not smoke or drink alcohol. Apparently lives alone. Family history: Dementia Physical examination: VITAL SIGNS: 98.3, 79, 19, 155/60, 100% on room air GENERAL: BMI 32.6, laying in bed, tired EYES: Pupils equal. Conjunctiva normal. HEENT: External appearance of nose and ears normal, oral cavity grossly normal. NECK: JVD not raised; masses not palpable. HEART: First and second heart sounds are normal; no edema. LUNGS: Respiratory rate normal; clear to auscultation. ABDOMEN: Soft, nontender, no guarding rigidity, liver spleen not palpable, no masses palpable. PSYCH: Awake alert and answered questions. NEUROLOGICAL: [Cranial nerves grossly intact; no facial asymmetry, difficulty in raising her lower extremities LYMPHATICS: No lymph nodes palpable in the axilla and neck INVESTIGATIONS, reviewed in the clinical context: WBC is 6.4 hemoglobin 12.9 platelets 208 sodium 128 potassium 3.3 BUN 24 creatinine 0.84 UA positive for leukoesterase, WBC, bacteria Lumbar spine CT [November 05] severe multilevel DJD with grade 1 anterolisthesis L4 on L5, multiple significant canal stenosis most marked at L4-L5. Cannot exclude disc herniation at L2-L3. Assessment and plan: -Acute on chronic low back pain-from spondylosis and spinal stenosis, and including disc herniation. At different lumbar level. Patient has failed outpatient treatment of the lumbar injections. Has had repeated ER visit. All medical options seems to be an exhausted. Orthopedics consulted. Looking into possible surgical intervention -Hyponatremia. Likely with hypo-osmolarity Sodium of 128, from excessive water intake. Discussed with patient. Fluid restriction. -GERD PPI -Chronic gastritis and duodenitis PPI -Diabetes mellitus type 2, chronically on insulin Follow Accu-Cheks. -Hyperlipidemia Lipitor 10 mg daily at bedtime -Hypothyroid Synthroid 150 g every 48 hours -Essential hypertension, Amlodipine 5 mg daily at bedtime, Lopressor 12.5 by mouth twice a day, Cozaar 100 mg daily -Asymptomatic bacteriuria Patient has no symptoms. No antibiotics for the same. -Hepatic steatosis Follow-up with GI as outpatient -Chronic gait dysfunction at baseline Uses a walker Care was discussed with the patient family at the bedside. Placed on fluid restriction. Home medications resumed. Accu-Cheks. Discussed with orthopedics Aneesh COTA. Possible surgery at this coming . Cardiovascular risk assessment for surgery. Patient has limited exercise tolerance. Denies any cardiac history. Has no active cardiac symptoms or chest pain or shortness of breath. Patient's current medications will be continued. Given her comorbidities she is at the moderate risk of any complication perioperatively. No carotid indications for surgery is medically stable to proceed for the same. This was discussed with the family the bedside. Patient Accu-Cheks will be followed. telemetry. Fluid restriction 1600 mL a day. Given the complexity and severity of patient's condition expect the patient to be in the hospital at least for 2 overnights Past Medical History Past Medical History: Diabetes Mellitus, Hyperlipidemia, Hypertension, Memory Impairment, Renal Disease, Thyroid Disorder Additional Past Medical History / Comment(s): chronic back pain History of Any Multi-Drug Resistant Organisms: None Reported Past Surgical History: Bladder Surgery, Breast Surgery, Cholecystectomy, Joint Replacement Additional Past Surgical History / Comment(s): bladder suspension, partial hysterectomy. double mastectomy. Epidural injections Past Psychological History: No Psychological Hx Reported Smoking Status: Never smoker Past Alcohol Use History: None Reported Past Drug Use History: None Reported - Past Family History Mother Family Medical History: Dementia Brother(s) Family Medical History: Dementia, Myocardial Infarction ([place]) Medications and Allergies Home Medications Medication Instructions Recorded Confirmed Type Simvastatin [Zocor] 20 mg PO HS 09/05/20 11/17/20 History Acetaminophen [Tylenol Arthritis] 650 mg PO Q8H PRN 10/07/20 11/17/20 History Aspirin EC [Ecotrin Low Dose] 81 mg PO DAILY 10/07/20 11/17/20 History Biotin 5 mg PO DAILY 10/07/20 11/17/20 History Cholecalciferol [Vitamin D3 (25 25 mcg PO DAILY 10/07/20 11/17/20 History Mcg = 1000 Iu)] Cyanocobalamin (Vitamin B-12) 1,000 mcg PO DAILY 10/07/20 11/17/20 History [Vitamin B-12] Gabapentin [Neurontin] 300 mg PO TID PRN 10/07/20 11/17/20 History Insulin Glargine,Hum.rec.anlog 10 - 12 unit SQ HS 10/07/20 11/17/20 History [Lantus Solostar Pen] Levothyroxine Sodium 150 mcg PO Q48H 10/07/20 11/17/20 History Metoprolol Tartrate [Lopressor] 12.5 mg PO BID 10/07/20 11/17/20 History amLODIPine [Norvasc] 5 mg PO HS 10/07/20 11/17/20 History Psyllium Husk 100% [Metamucil 6 gm PO BID #0 10/09/20 11/17/20 Rx Packet] Chlorthalidone [Hygroton] 25 mg PO DAILY 10/13/20 11/17/20 History Cyclobenzaprine [Flexeril] 5 mg PO Q8H 11/05/20 11/17/20 History Losartan Potassium 100 mg PO DAILY 11/05/20 11/17/20 History Olmesartan Medoxomil 40 mg PO DAILY 11/05/20 11/17/20 History Pantoprazole Sodium [Protonix] 40 mg PO BID 11/05/20 11/17/20 History HYDROcodone/APAP 5-325MG [[place] 5] 1 tab PO Q8H PRN 11/17/20 11/17/20 History Allergies Allergy/AdvReac Type Severity Reaction Status Date / Time No Known Allergies Allergy Verified 11/17/20 07:26 Physical Exam Vitals: Vital Signs Temp Pulse Pulse Resp BP BP Pulse Ox 11/17/20 07:00 98.3 F 79 19 155/60 100 11/17/20 06:14 79 20 136/83 98 11/17/20 04:00 86 20 158/99 97 11/17/20 00:54 69 18 177/62 97 11/16/20 19:53 97.4 F L 84 20 160/102 99 Intake and Output 11/16/20 11/17/20 11/17/20 22:59 06:59 14:59 Other: Voiding Method External Catheter Weight 83.461 kg Results CBC & Chem 7: 11/16/20 Unknown 11/16/20 Unknown Labs: Abnormal Lab Results - Last 24 Hours (Table) 11/16/20 11/17/20 11/17/20 Range/Units Unknown 06:14 06:51 Sodium 128 L (137-145) mmol/L Potassium 3.3 L (3.5-5.1) mmol/L Chloride 94 L (98-107) mmol/L BUN 24 H (7-17) mg/dL Glucose 161 H (74-99) mg/dL POC Glucose (mg/dL) 120 H (75-99) mg/dL AST 37 H (14-36) U/L Total Protein 6.2 L (6.3-8.2) g/dL Urine Appearance Cloudy H (Clear) Urine Protein Trace H (Negative) Urine Blood Small H (Negative) Ur Leukocyte Esterase Moderate H (Negative) Urine RBC 24 H (0-5) /hpf Urine WBC 17 H (0-5) /hpf Amorphous Sediment Rare H (None) /hpf Urine Bacteria Few H (None) /hpf
[2020-11-17 18:44] LABS: Glucose,Whole Blood 167 mg/dL (75-99)
--- NOTE | 2020-11-17 19:14 | XR ---
EXAMINATION TYPE: XR chest 1V portable DATE OF EXAM: 11/17/2020 COMPARISON: 09/05/2020 HISTORY: Single view TECHNIQUE: FINDINGS: There is no heart failure nor confluent pneumonic infiltrate. Thoracic aorta is atheromatous. There a re no hilar masses. Costophrenic angles are clear. Bony thorax is intact. IMPRESSION: No active cardiopulmonary disease. No change.
[2020-11-17 20:49] LABS: Glucose,Whole Blood 141 mg/dL (75-99)
[2020-11-17] MEDS ORDERED: INSULIN DETEMIR (LEVEMIR) 100 UNIT/ML SYR SQ SCH (21:00)
[2020-11-17] MEDS: amLODIPine 5 MG TAB PO SCH (21:01)
[2020-11-17] MEDS: ATORVASTATIN 10 MG TAB PO SCH (21:02)
[2020-11-17] MEDS: INSULIN ASPART (NovoLOG) 100 UNIT/ML VIAL SQ SCH (21:02)
[2020-11-17] MEDS: INSULIN DETEMIR (LEVEMIR) 100 UNIT/ML SYR SQ SCH (21:03)
[2020-11-17] MEDS: PSYLLIUM HUSK 100% 6 GM PACKET PO SCH (21:08)
[2020-11-18] MEDS: MORPHINE SULFATE 4 MG/ML SYRINGE IV PRN ×5 (01:43→22:08)
[2020-11-18 06:21] LABS: African American GFR (CKD) 74 (>60 ml/min/1.73 sqM); Anion Gap 6 mmol/L; Blood Urea Nitrogen 14 mg/dL (7-17); Carbon Dioxide 30 mmol/L (22-30); Chloride 99 mmol/L (98-107); Glucose 100 mg/dL (74-99); Non-African American GFR(CKD) 64 (>60 ml/min/1.73 sqM); Potassium 3.6 mmol/L (3.5-5.1); Sodium 135 mmol/L (137-145)
[2020-11-18 06:51] LABS: Glucose,Whole Blood 106 mg/dL (75-99)
[2020-11-18] MEDS: INSULIN ASPART (NovoLOG) 100 UNIT/ML VIAL SQ SCH ×4 (08:05→22:02)
[2020-11-18] MEDS: CYCLOBENZAPRINE 5 MG TAB PO SCH ×2 (08:39→15:34)
[2020-11-18] MEDS: CHOLECALCIFEROL 25 MCG (1000 IU) TABLET PO SCH (08:39)
[2020-11-18] MEDS: CHLORTHALIDONE 25 MG TAB PO SCH (08:39)
[2020-11-18] MEDS: LOSARTAN 50 MG TAB PO SCH (08:39)
[2020-11-18] MEDS: PANTOPRAZOLE 40 MG TABLET PO SCH ×2 (08:39→17:52)
[2020-11-18] MEDS: METOPROLOL TARTRATE 12.5 MG TAB PO SCH ×2 (08:40→22:01)
[2020-11-18] MEDS: PSYLLIUM HUSK 100% 6 GM PACKET PO SCH ×2 (08:40→22:11)
[2020-11-18] MEDS: CYANOCOBALAMIN 500 MCG TAB PO SCH (08:40)
[2020-11-18] MEDS: ASPIRIN 81 MG PO SCH (08:40)
[2020-11-18 11:55] LABS: Glucose,Whole Blood 166 mg/dL (75-99)
--- NOTE | 2020-11-18 14:30 | P.PN ---
Progress Note - Text Progress Note Date: 11/18/20 Orthopedic spine: History of present illness: She is a well-known 80-year-old female who is seen and examined at the bedside for follow-up evaluation of her lumbar spine. She is known have significant degenerative changes with significant stenosis at her lumbar spine. In the outpatient setting she has been working through conservative treatment options with pain management without significant benefit. She has been seen and evaluated in the emergency department recently on 11/05/2020 and again yesterday due to her significant lower extremity radiculopathy. She has weakness due to her pain. She has difficulty ambulation regular activities of daily living. She has some back pain but her lower extremity leg symptoms are most significant symptoms. She has severe pain radiating down the right lower extremity. Due to her significant difficulty with regular activities of daily living and pain she presented to the hospital for further evaluation today. She has not been out of bed since being seen and examined yesterday. Hoping she is able to get transferred to a bedside chair with physical therapy. She continues to be seen and examined by Dr. Johansen in medicine. Medicine states they will clear the patient for surgical intervention which is scheduled for tomorrow. Patient's other medical diagnoses include diabetes mellitus, hyperlipidemia, hypertension, renal disease, history of cancer, and thyroid disorder. Patient is seen and examined with her family present. She recently had lumbar CT imaging performed as well. Physical exam: Patient is awake, alert, and oriented 3 Vital signs stable Adequate chest excursion with deep inspiration and expiration Examination of lumbar spine reveals skin is intact with no abrasions, lacerations, or bruises; no erythema, purulence or signs of infection No significant pain with palpation over the lumbar spine Dorsiflexion, plantarflexion, and extensor hallucis longus positive sustained bilaterally Lower extremity strength 5/5 bilaterally Evidence of a well-healed incision with the right anterior knee Patient has significant difficulty lifting her right lower extremity off the bed No signs or symptoms of DVT; no calf pain No pain with internal and external rotation of the hips bilaterally Neurovascularly intact Pertinent studies: MRI of the lumbar spine taken outside facility: L2-3 large herniated nucleus pulposus and facet arthropathy resulting in severe spinal canal stenosis and neural foraminal stenosis; L3-4 degenerative disc disease, herniated distal pulses, and facet arthropathy resulting in spinal canal stenosis; L4-5 spondylolisthesis, degenerative disc disease, herniated nucleus pulposus, and facet arthropathy resulting in severe spinal canal stenosis CT lumbar spine taken on 11/05/2020: L1-2 degenerative disc disease and facet arthropathy; L2-3 severe degenerative disc disease, facet arthropathy, disc bulging, and vacuum disc with discogenic marrow changes resulting in severe spinal canal stenosis; L3-4 severe degenerative disc disease with vacuum disc phenomenon, facet arthropathy, and diffuse disc bulging with ligamentum flavum hypertrophy resulting in moderate to severe spinal canal stenosis; L4-5 advanced facet arthropathy, grade 1 spondylolisthesis, broad-based central disc protrusion with severe spinal canal stenosis and bilateral lateral recess stenosis; L5-S1 severe degenerative disc disease with vacuum disc phenomenon and advanced facet arthropathy with broad-based disc bulge resulting in mild spinal stenosis Assessment: L2-3 severe spinal canal stenosis L3-4 moderate to severe spinal canal stenosis L4-5 severe spinal canal stenosis Neurogenic claudication Lumbar facet arthropathy Lumbosacral facet arthropathy Lumbar degenerative disc disease Lumbosacral degenerative disc disease L4-5 spondylolisthesis Intractable right lower extremity radiculopathy Low back pain Diabetes mellitus Hyperlipidemia Hypertension Renal disease History of cancer Thyroid disorder Plan: 1. We will continue with our plan as set forth yesterday. Patient is again discussed in detail with Dr. Harjeet Mercer. Patient has been working through conservative treatment options in the outpatient setting without significant benefit. She has had injections at her lumbar spine without benefit. She is having difficulty with regular activities of daily living giving her symptoms. She experienceds severe right lower extremity radiculopathy. She feels weakness due to pain in her right lower extremity. Review of imaging does show multilevel severe spinal canal stenosis with her most significant levels at L2- 3, L3-4, and L4-5. At this time she is failing conservative treatment options. She has difficulty with regular activities of daily living due to her symptoms. After further discussion with the patient and her family, reviewing of imaging, and further discussion with Dr. Harjeet Mercer, we'll currently plan to proceed forward with scheduling surgical intervention as she has failed conservative treatment options. She has significant indications for surgical intervention and we feel she could benefit with surgery at her lumbar spine. We did discuss the proposed surgical intervention is an L2-3, L3-4, and L4-5 laminectomy and decompression with discectomy We'll currently plan to schedule surgery tomorrow, 11/19/2020. Patient will become nothing by mouth status starting at midnight on 11/19/2020 in anticipation for surgical intervention. Patient will continue be seen and examined by medicine for her other medical diagnoses. Medicine plans to clear the patient for surgical intervention. Plan of care is discussed in detail with the patient and her family who all agree with this plan. This may continue with pain control medications as prescribed by medicine including hydrocodone 5 mg/325 mg, gabapentin 300 mg, cyclobenzaprine 5 mg, and acetaminophen 650 mg. We will continue to follow patient closely. She is encouraged to get out of bed and is able to work with physical therapy or nursing aides to transfer to a bedside chair. She ambulates to the restroom to her tolerance. I discussed these issues with the patient at length and I answered all of their questions to the best of my ability and the patient understands. I discussed the risk of surgical intervention and alternative treatment options. The risk of surgical intervention was explained to the patient in detail including but not limited to risk of bleeding, risk of infection, risk and need for further surgery, risk of decreased loss of motion of function, malunion, nonunion, hardware failure, nerve damage, paralysis, heart attack, , as well as the fact that surgery may not alleviate her symptoms. I answered all the patient's questions the best of my ability. The patient would like to proceed forward with surgical intervention and will sign informed consent.
[2020-11-18] MEDS: HYDROcodone/APAP 5-325MG 1 EACH TAB PO PRN (15:34)
[2020-11-18 17:08] LABS: Glucose,Whole Blood 95 mg/dL (75-99)
--- NOTE | 2020-11-18 17:24 | P.PN ---
Progress Note - Text Progress Note Date: 11/18/20 Chief Complaint: Increasing lower back pain History of presenting complaint: This is a 80-year-old patient who follows with Dr. Minda arechiga. Chronic stable medical conditions include hypertension, hyperlipidemia, diabetes, osteoarthritis. Does use a walker. Admitted on 09/05/2020 with acute on chronic low back pain. MRI of the lumbar spine showed : spondylosis spinal stenosis. underwent epidural steroid injection and L3-L4. Seen by Dr. Mercer from orthopedic spine. Also by Dr. Wilson from neurology. Patient has declined any major surgical intervention. Then admitted to the hospital on November 05 with hyponatremia, possibly gastritis and duodenitis. And constipation. Patient was doing well upon discharge. Patient's had again progressive increasing pain primarily in the lower extremity on the posterior surface. Finding it difficult to walk. She does use a bedside,. No fever no chills. Appetite is good. Having bowel movements. Patient also had a recent ER visit on November 05. Also has had further lumbar injections by Dr. Chandler from the pain medication team. 11/18/2020: Sitting up in a recliner. Pain present. Family the bedside. Oral intake fair. For surgery tomorrow. Review of systems: Was done for constitutional, cardiovascular, GI, pulmonary. relevant finding as above Active Medications Acetaminophen (Acetaminophen Tab 325 Mg Tab) 650 mg PO Q8H PRN PRN Reason: Pain Hydrocodone Bitart/Acetaminophen (Hydrocodone/Apap 5-325mg 1 Each Tab) 1 each PO Q8H PRN PRN Reason: Pain Last Admin: 11/18/20 15:34 Dose: 1 each Documented by: Amlodipine Besylate (Amlodipine 5 Mg Tab) 5 mg PO HS [facility] Last Admin: 11/17/20 21:01 Dose: 5 mg Documented by: Aspirin (Aspirin 81 Mg) 81 mg PO DAILY [facility] Last Admin: 11/18/20 08:40 Dose: 81 mg Documented by: Atorvastatin Calcium (Atorvastatin 10 Mg Tab) 10 mg PO [facility] Last Admin: 11/17/20 21:02 Dose: 10 mg Documented by: Chlorthalidone (Chlorthalidone 25 Mg Tab) 25 mg PO DAILY [facility] Last Admin: 11/18/20 08:39 Dose: 25 mg Documented by: Cholecalciferol (Cholecalciferol 25 Mcg (1000 Iu) Tablet) 25 mcg PO DAILY [facility] Last Admin: 11/18/20 08:39 Dose: 25 mcg Documented by: Cyanocobalamin (Cyanocobalamin 500 Mcg Tab) 1,000 mcg PO DAILY [facility] Last Admin: 11/18/20 08:40 Dose: 1,000 mcg Documented by: Cyclobenzaprine HCl (Cyclobenzaprine 5 Mg Tab) 5 mg PO Q8HR [facility] Last Admin: 11/18/20 15:34 Dose: 5 mg Documented by: Gabapentin (Gabapentin 300 Mg Cap) 300 mg PO TID PRN PRN Reason: Pain Last Admin: 11/18/20 05:15 Dose: 300 mg Documented by: Cefazolin Sodium 2 gm/ Sodium (Chloride) 50 mls @ 100 mls/hr IVPB ONCE ONE Stop: 11/19/20 15:29 Insulin Aspart (Insulin Aspart (Novolog) 100 Unit/Ml Vial) 0 unit SQ [facility]; Protocol Last Admin: 11/18/20 13:03 Dose: 2 unit Documented by: Insulin Detemir (Insulin Detemir (Levemir) 100 Unit/Ml Syr) 14 unit SQ [facility] Last Admin: 11/17/20 21:03 Dose: 14 unit Documented by: Levothyroxine Sodium (Levothyroxine 75 Mcg Tab) 150 mcg PO Q48H [facility] Losartan Potassium (Losartan 50 Mg Tab) 100 mg PO DAILY [facility] Last Admin: 11/18/20 08:39 Dose: 100 mg Documented by: Metoprolol Tartrate (Metoprolol Tartrate 12.5 Mg Tab) 12.5 mg PO BID [facility] Last Admin: 11/18/20 08:40 Dose: 12.5 mg Documented by: Morphine Sulfate (Morphine Sulfate 4 Mg/Ml Syringe) 4 mg IV Q4HR PRN PRN Reason: Severe Pain Last Admin: 11/18/20 11:21 Dose: 4 mg Documented by: Naloxone HCl (Naloxone 0.4 Mg/Ml 1 Ml Vial) 0.2 mg IV Q2M PRN PRN Reason: Opioid Reversal Ondansetron HCl (Ondansetron 4 Mg/2 Ml Vial) 4 mg IVP Q8HR PRN PRN Reason: Nausea And Vomiting Pantoprazole Sodium (Pantoprazole 40 Mg Tablet) 40 mg PO AC-BID [facility] Last Admin: 11/18/20 08:39 Dose: 40 mg Documented by: Psyllium Hydrophilic Mucilloid (Psyllium Husk 100% 6 Gm Packet) 6 gm PO BID [facility] Last Admin: 11/18/20 08:40 Dose: 6 gm Documented by: Past medical history to include: Diabetes, hypertension, hyperlipidemia, memory impairment, chronic kidney disease, hypothyroid, chronic low back pain with arthritis, spinal stenosis Social history: Does not smoke or drink alcohol. Apparently lives alone. Family history: Dementia Physical examination: VITAL SIGNS: 98, 79, 18, 156/67, 97% room air GENERAL: sitting in a recliner EYES: Pupils equal. Conjunctiva normal. NECK: JVD not raised; masses not palpable. HEART: First and second heart sounds are normal; no edema. LUNGS: Respiratory rate normal; clear to auscultation. ABDOMEN: Soft, nontender, no guarding rigidity, liver spleen not palpable, no masses palpable. PSYCH: Awake alert and answered questions. NEUROLOGICAL: difficulty in raising her lower extremities INVESTIGATIONS, reviewed in the clinical context: Chest x-ray: Lungs clear 2-D echocardiogram: Moderate concentric LVH. EF 55-60% November 18: Potassium 3.6 sodium 135 serum osmolality 283 WBC is 6.4 hemoglobin 12.9 platelets 208 sodium 128 potassium 3.3 BUN 24 creatinine 0.84 UA positive for leukoesterase, WBC, bacteria Lumbar spine CT [November 05] severe multilevel DJD with grade 1 anterolisthesis L4 on L5, multiple significant canal stenosis most marked at L4-L5. Cannot exclude disc herniation at L2-L3. Assessment and plan: -Acute on chronic low back pain-from spondylosis and spinal stenosis, and including disc herniation. At different lumbar level. Patient has failed outpatient treatment of the lumbar injections. Has had repeated ER visit.: Slow to respond All medical options seems to be an exhausted. Orthopedics consulted. Pending surgery -Hyponatremia. Likely with hypo-osmolarity Sodium of 128, from excessive water intake.: Improved Discussed with patient. Fluid restriction. -GERD PPI -Chronic gastritis and duodenitis PPI -Diabetes mellitus type 2, chronically on insulin Follow Accu-Cheks. -Hyperlipidemia Lipitor 10 mg daily at bedtime -Hypothyroid Synthroid 150 g every 48 hours -Essential hypertension, Amlodipine 5 mg daily at bedtime, Lopressor 12.5 by mouth twice a day, Cozaar 100 mg daily -Hypertensive heart disease On amlodipine, Lopressor, Cozaar -Asymptomatic bacteriuria Patient has no symptoms. No antibiotics for the same. 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 Patient has limited exercise tolerance. Denies any cardiac history. Has no active cardiac symptoms or chest pain or shortness of breath. Patient's current medications will be continued. Given her comorbidities she is at the moderate risk of any complication perioperatively. No carotid indications for surgery is medically stable to proceed for the same. This was discussed with the family the bedside. Patient Accu-Cheks will be followed. telemetry. Fluid restriction 1600 mL a day. Continue current medication treatment plan. Discussed with the patient and family. For surgery tomorrow.
[2020-11-18 19:51] LABS: Glucose,Whole Blood 148 mg/dL (75-99)
[2020-11-18] MEDS: ATORVASTATIN 10 MG TAB PO SCH (22:00)
[2020-11-18] MEDS: amLODIPine 5 MG TAB PO SCH (22:01)
[2020-11-18] MEDS: INSULIN DETEMIR (LEVEMIR) 100 UNIT/ML SYR SQ SCH (22:02)
[2020-11-19] MEDS: CYCLOBENZAPRINE 5 MG TAB PO SCH ×3 (01:21→16:19)
[2020-11-19] MEDS: MORPHINE SULFATE 4 MG/ML SYRINGE IV PRN ×3 (06:11→14:25)
[2020-11-19] MEDS ORDERED: LEVOTHYROXINE 75 MCG TAB PO SCH (06:30)
[2020-11-19 07:07] LABS: Glucose,Whole Blood 121 mg/dL (75-99)
[2020-11-19] MEDS: INSULIN ASPART (NovoLOG) 100 UNIT/ML VIAL SQ SCH ×2 (07:20→12:41)
[2020-11-19] MEDS: CYANOCOBALAMIN 500 MCG TAB PO SCH (08:55)
[2020-11-19] MEDS: PANTOPRAZOLE 40 MG TABLET PO SCH (08:55)
[2020-11-19] MEDS: PSYLLIUM HUSK 100% 6 GM PACKET PO SCH (08:55)
[2020-11-19] MEDS: CHOLECALCIFEROL 25 MCG (1000 IU) TABLET PO SCH (08:55)
[2020-11-19] MEDS: ASPIRIN 81 MG PO SCH (08:55)
[2020-11-19] MEDS: HYDROcodone/APAP 5-325MG 1 EACH TAB PO PRN (09:24)
[2020-11-19] MEDS: METOPROLOL TARTRATE 12.5 MG TAB PO SCH (09:24)
[2020-11-19] MEDS: CHLORTHALIDONE 25 MG TAB PO SCH (09:24)
[2020-11-19] MEDS: LOSARTAN 50 MG TAB PO SCH (09:24)
[2020-11-19 12:07] LABS: Glucose,Whole Blood 154 mg/dL (75-99)
--- NOTE | 2020-11-19 12:37 | P.PN ---
Progress Note - Text Progress Note Date: 11/19/20 The patient is seen and examined at bedside today. She continues to have severe pain at her low back toward her left leg in particular. She is weakness in her left lower extremity. She has been found have severe stenosis L2-3 L3 4 L4 5 with disc herniation and extrusion. This correlates well with her low back and lower extremity symptoms. She is not had any response despite aggressive conservative care. She has spondylolisthesis as well. We discussed the number of treatments including surgical intervention. She and her family at bedside and was discussed the fact that she has had significant increased risk with surgical intervention given her age and medical condition. Despite that she is miserable and is interested in proceeding with surgical intervention as soon as possible. I think that she can have benefit with decompression. I think that surgical fusion would be quite extensive and it would be very difficult to protect her response to such a large procedure. I think she can have good improvement with decompression alone and will plan to proceed with laminectomy decompression with discectomy L2-3 L3 4 L4 5 today. We discussed the risk of occasions alternatives and benefits at length. She has had clearance from her medical doctor. I answered her questions best my ability and she is interested in proceeding as soon as she can. We'll plan for surgery today.
[2020-11-19 15:58] LABS: Glucose,Whole Blood 123 mg/dL (75-99)
[2020-11-19] MEDS ORDERED: IV FLUID CONTINUATION 1,000 ML IV ONE (15:58)
[2020-11-19] MEDS ORDERED: ONDANSETRON 4 MG/2 ML VIAL IVP ONE (15:58)
[2020-11-19] MEDS ORDERED: DEXAMETHASONE SOD PHOSPHATE 4 MG/ML 1 ML VIAL IVP ONE (15:59)
[2020-11-19] MEDS ORDERED: fentaNYL (PF) 50 MCG/ML 2 ML AMP IVP ONE (16:13)
[2020-11-19] MEDS ORDERED: HYDROmorphone (PF) 1 MG/ML ONE (16:38)
[2020-11-19] MEDS ORDERED: SUCCINYLCHOLINE CHLORIDE 100 MG/5 ML SYR IV ONE (16:38)
[2020-11-19] MEDS ORDERED: PROPOFOL 10 MG/ML 20 ML VIAL IV ONE (16:38)
[2020-11-19] MEDS ORDERED: fentaNYL (PF) 50 MCG/ML 2 ML AMP ONE (16:38)
[2020-11-19] MEDS ORDERED: LIDOCAINE 1% INJ 10MG/ML (20 ML MDV) ONE (16:38)
[2020-11-19] MEDS ORDERED: LABETALOL 5 MG/ML VIAL MDV ONE (16:38)
--- NOTE | 2020-11-19 16:48 | P.PN ---
Progress Note - Text Progress Note Date: 11/19/20 code status discussed for surgery. return to no code in recovery
[2020-11-19] MEDS ORDERED: SODIUM CHLORIDE 0.9% 100 ML with ceFAZolin 2,000 MG IV ONE ×2 (17:00)
[2020-11-19] MEDS ORDERED: BUPIVACAINE (PF) 0.5% 30 ML VIAL SQ ONE (17:11)
[2020-11-19] MEDS ORDERED: methylPREDNISolone ACETATE 80 MG/ML 1 ML VIAL INJ ONE (17:22)
[2020-11-19] MEDS ORDERED: THROMBIN (BOVINE) 5,000 UNIT VIAL TOPICAL ONE (17:22)
[2020-11-19] MEDS ORDERED: GELATIN SPONGE,ABSORB (LARGE) 1 EACH SPONGE TOPICAL ONE (17:22)
--- NOTE | 2020-11-19 17:40 | P.PN ---
Progress Note - Text Progress Note Date: 11/19/20 Chief Complaint: Increasing lower back pain History of presenting complaint: This is a 80-year-old patient who follows with Dr. Minda arechiga. Chronic stable medical conditions include hypertension, hyperlipidemia, diabetes, osteoarthritis. Does use a walker. Admitted on 09/05/2020 with acute on chronic low back pain. MRI of the lumbar spine showed : spondylosis spinal stenosis. underwent epidural steroid injection and L3-L4. Seen by Dr. Mercer from orthopedic spine. Also by Dr. Wilson from neurology. Patient has declined any major surgical intervention. Then admitted to the hospital on November 05 with hyponatremia, possibly gastritis and duodenitis. And constipation. Patient was doing well upon discharge. Patient's had again progressive increasing pain primarily in the lower extremity on the posterior surface. Finding it difficult to walk. She does use a bedside,. No fever no chills. Appetite is good. Having bowel movements. Patient also had a recent ER visit on November 05. Also has had further lumbar injections by Dr. Chandler from the pain medication team. 11/18/2020: Sitting up in a recliner. Pain present. Family the bedside. Oral intake fair. For surgery tomorrow. 11/19/2020: Laying in bed. Back pain present. Pending surgery this afternoon. No new issues. Nothing by mouth. Family at the bedside. Review of systems: Was done for constitutional, cardiovascular, GI, pulmonary. relevant finding as above Active Medications Acetaminophen (Acetaminophen Tab 325 Mg Tab) 650 mg PO Q8H PRN PRN Reason: Pain Hydrocodone Bitart/Acetaminophen (Hydrocodone/Apap 5-325mg 1 Each Tab) 1 each PO Q8H PRN PRN Reason: Pain Last Admin: 11/19/20 09:24 Dose: 1 each Documented by: Amlodipine Besylate (Amlodipine 5 Mg Tab) 5 mg PO HS [facility] Last Admin: 11/18/20 22:01 Dose: 5 mg Documented by: Aspirin (Aspirin 81 Mg) 81 mg PO DAILY [facility] Last Admin: 11/19/20 08:55 Dose: Not Given Documented by: Atorvastatin Calcium (Atorvastatin 10 Mg Tab) 10 mg PO HS [facility] Last Admin: 11/18/20 22:00 Dose: 10 mg Documented by: Chlorthalidone (Chlorthalidone 25 Mg Tab) 25 mg PO DAILY [facility] Last Admin: 11/19/20 09:24 Dose: 25 mg Documented by: Cholecalciferol (Cholecalciferol 25 Mcg (1000 Iu) Tablet) 25 mcg PO DAILY [facility] Last Admin: 11/19/20 08:55 Dose: Not Given Documented by: Cyanocobalamin (Cyanocobalamin 500 Mcg Tab) 1,000 mcg PO DAILY [facility] Last Admin: 11/19/20 08:55 Dose: Not Given Documented by: Cyclobenzaprine HCl (Cyclobenzaprine 5 Mg Tab) 5 mg PO Q8HR [facility] Last Admin: 11/19/20 16:19 Dose: Not Given Documented by: Gabapentin (Gabapentin 300 Mg Cap) 300 mg PO TID PRN PRN Reason: Pain Last Admin: 11/18/20 05:15 Dose: 300 mg Documented by: Insulin Aspart (Insulin Aspart (Novolog) 100 Unit/Ml Vial) [address] [facility]; Protocol Last Admin: 11/19/20 12:41 Dose: Not Given Documented by: Insulin Detemir (Insulin Detemir (Levemir) 100 Unit/Ml Syr) 14 unit SQ [facility] Last Admin: 11/18/20 22:02 Dose: 14 unit Documented by: Levothyroxine Sodium (Levothyroxine 75 Mcg Tab) 150 mcg PO Q48H [facility] Last Admin: 11/19/20 09:24 Dose: 150 mcg Documented by: Losartan Potassium (Losartan 50 Mg Tab) 100 mg PO DAILY [facility] Last Admin: 11/19/20 09:24 Dose: 100 mg Documented by: Metoprolol Tartrate (Metoprolol Tartrate 12.5 Mg Tab) 12.5 mg PO BID [facility] Last Admin: 11/19/20 09:24 Dose: 12.5 mg Documented by: Morphine Sulfate (Morphine Sulfate 4 Mg/Ml Syringe) 4 mg IV Q4HR PRN PRN Reason: Severe Pain Last Admin: 11/19/20 14:25 Dose: 4 mg Documented by: Naloxone HCl (Naloxone 0.4 Mg/Ml 1 Ml Vial) 0.2 mg IV Q2M PRN PRN Reason: Opioid Reversal Ondansetron HCl (Ondansetron 4 Mg/2 Ml Vial) 4 mg IVP Q8HR PRN PRN Reason: Nausea And Vomiting Pantoprazole Sodium (Pantoprazole 40 Mg Tablet) 40 mg PO AC-BID [facility] Last Admin: 11/19/20 08:55 Dose: Not Given Documented by: Psyllium Hydrophilic Mucilloid (Psyllium Husk 100% 6 Gm Packet) 6 gm PO BID [facility] Last Admin: 11/19/20 08:55 Dose: Not Given Documented by: Past medical history to include: Diabetes, hypertension, hyperlipidemia, memory impairment, chronic kidney disease, hypothyroid, chronic low back pain with arthritis, spinal stenosis Social history: Does not smoke or drink alcohol. Apparently lives alone. Family history: Dementia Physical examination: VITAL SIGNS: 97.9, 81, 18, 1 33 x 81, 98% room air GENERAL: Resting bed, awake EYES: Pupils equal. Conjunctiva normal. NECK: JVD not raised; masses not palpable. HEART: First and second heart sounds are normal; no edema. LUNGS: Respiratory rate normal; clear to auscultation. ABDOMEN: Soft, nontender, no guarding rigidity, liver spleen not palpable, no masses palpable. PSYCH: Awake alert and answered questions. NEUROLOGICAL: difficulty in raising her lower extremities INVESTIGATIONS, reviewed in the clinical context: Chest x-ray: Lungs clear 2-D echocardiogram: Moderate concentric LVH. EF 55-60% November 18: Potassium 3.6 sodium 135 serum osmolality 283 WBC is 6.4 hemoglobin 12.9 platelets 208 sodium 128 potassium 3.3 BUN 24 creatinine 0.84 UA positive for leukoesterase, WBC, bacteria Lumbar spine CT [November 05] severe multilevel DJD with grade 1 anterolisthesis L4 on L5, multiple significant canal stenosis most marked at L4-L5. Cannot exclude disc herniation at L2-L3. Assessment and plan: -Acute on chronic low back pain-from spondylosis and spinal stenosis, and including disc herniation. At different lumbar level. Patient has failed outpatient treatment of the lumbar injections. Has had repeated ER visit.: Slow to respond All medical options seems to be an exhausted. Orthopedics consulted. Pending surgery this afternoon -Hyponatremia. Likely with hypo-osmolarity Sodium of 128, from excessive water intake.: Improved Discussed with patient. Fluid restriction. -GERD PPI -Chronic gastritis and duodenitis PPI -Diabetes mellitus type 2, chronically on insulin Follow Accu-Cheks. -Hyperlipidemia Lipitor 10 mg daily at bedtime -Hypothyroid Synthroid 150 g every 48 hours -Essential hypertension, Amlodipine 5 mg daily at bedtime, Lopressor 12.5 by mouth twice a day, Cozaar 100 mg daily -Hypertensive heart disease On amlodipine, Lopressor, Cozaar -Asymptomatic bacteriuria Patient has no symptoms. No antibiotics for the same. 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 Patient has limited exercise tolerance. Denies any cardiac history. Has no active cardiac symptoms or chest pain or shortness of breath. Patient's current medications will be continued. Given her comorbidities she is at the moderate risk of any complication perioperatively. No carotid indications for surgery is medically stable to proceed for the same. This was discussed with the family the bedside. Patient Accu-Cheks will be followed. telemetry. Fluid restriction 1600 mL a day. Patient is nothing by mouth. Pending surgery this afternoon Discussed with the patient and family.
[2020-11-19] MEDS ORDERED: LACTATED RINGERS 1,000 ML IV ONE (18:30)
[2020-11-19] MEDS ORDERED: HYDROmorphone 0.5 MG/0.5 ML SYRINGE IVP PRN (19:15)
[2020-11-19] MEDS ORDERED: BENZOCAINE/MENTHOL LOZENG 1 EACH LOZENGE MUCOUS MEM PRN (19:15)
[2020-11-19] MEDS ORDERED: HYDROcodone/APAP 5-325MG 1 EACH TAB PO PRN (19:15)
--- NOTE | 2020-11-19 19:15 | P.OP ---
Date of Procedure: 11/19/20 Preoperative Diagnosis: Severe spinal stenosis L2-3 L3 4 L4 5, disc herniation with extruded fragment L2-3, bilateral lower extremity radiculopathy, bilateral lower extremity weakness, spinal stenosis, neurogenic claudication, low back pain, spondylolisthesis L4 5, facet arthrosis, degenerative disc disease, inability to ambulate Postoperative Diagnosis: Same Anesthesia: GETA Pathology: none sent Condition: stable Disposition: PACU Description of Procedure: BRIEF OPERATIVE NOTE Preoperative Diagnosis:Severe spinal stenosis L2-3 L3 4 L4 5, disc herniation with extruded fragment L2-3, bilateral lower extremity radiculopathy, bilateral lower extremity weakness, spinal stenosis, neurogenic claudication, low back pain, spondylolisthesis L4 5, facet arthrosis, degenerative disc disease, inability to ambulate Postoperative Diagnosis:Severe spinal stenosis L2-3 L3 4 L4 5, disc herniation with extruded fragment L2-3, bilateral lower extremity radiculopathy, bilateral lower extremity weakness, spinal stenosis, neurogenic claudication, low back pain, spondylolisthesis L4 5, facet arthrosis, degenerative disc disease, inability to ambulate Procedure: Laminectomy and decompression L2-3 L3 4 L4 5 with wide bilateral foraminotomy and partial medial facetectomy Discectomy for decompression L2-3 Surgeon: Dr. Mercer Nondestructive Tester: assistant men's lacrosse coach Anesthesia: General anesthesia per Dr. Calderon Estimated blood loss: Approximately 75 mL Complications: None apparent Components implanted: None Disposition: To recovery room in good stable condition. OPERATIVE INDICATIONS The patient has been having issues in their lower back and lower extremities. She's been having severe pain and excruciating difficulty with her back and lower extremity is particularly at her legs on the right more than the left. Patient has a history of lumbar issues but was having severe worsening was unable to ambulate. She is having weakness at her right lower extremity. She was found have severe stenosis L2-3 L3 4 L4 5 with a disc herniation and extruded fragment behind L2-3 extruding and extending behind L3. All of these findings correlate well with her low back and lower extremity symptoms. The patient has been through conservative treatment. She is not having any lasting benefit despite aggressive conservative care. She is having worsening her symptoms and was unable ambulate and mobilize. Her pain was uncontrollable with conservative measures. She understood that she had severe issues at her lumbar spine and with her advanced age and somewhat frail medical status that further intervention surgery would be of significant risk to her. We discussed various treatment options including surgery, and the patient wishes to proceed with surgery We discussed the risk, patient's alternatives and benefits of surgery including but not limited to, risk of bleeding risk of infection, risk of need for further surgery, risk of decreased, loss of motion, loss of function, nerve damage, paralysis, heart attack, blindness and . OPERATIVE SUMMARY After discussing all the risks, patient alternatives and benefits at length, the patient elected to proceed with surgical intervention, signed informed consent, and presented for their procedure. The patient was seen and examined in the preoperative holding area and the surgical site was marked. The patient was given antibiotics and brought to the operating room. The patient was sedated and intubated by anesthesia in standard fashion. The patient was positioned on to the operating room table in a prone position on the appropriate frame which was well-padded and well molded. We were careful to pad any bony prominences and pressure points. We were careful to maintain the patient's cervical spine and good neutral alignment and position throughout. The patient was prepped and draped in a normal standard fashion. An appropriate timeout and keystone protocol performed. We were able to proceed with the surgery. Fluoroscopy was utilized to establish the appropriate level. The local wound area was infiltrated with local anesthetic. An incision was made at the midline longitudinally over the appropriate levels from L2 to L5. Dissection was taken down subcutaneously to the level of the fascia which was split midline. Dissection was taken over the lamina. Intr aoperative fluoroscopy was taken which showed a marker at the appropriate level at L2-3. With the appropriate level positively confirmed, we were able to proceed with laminectomy. The wound was copiously irrigated and suctioned dry as had been done periodically throughout the case. I started L2-3 and then L3 4 and L4 5 similarly. I performed a laminectomy with a combination of curettes and a high-speed bur and Kerrison rongeurs. A small medial facetectomy was performed again further access. A partial foraminotomy was also performed. Portions of the ligamentum flavum were taken down to expose the dura and traversing nerve root. There is severe central and bilateral foraminal stenosis at each level with severe thickening of ligamentum flavum and large osteophytes and facet arthrosis causing central and bilateral foraminal stenosis. This was able to be rectified with the decompression laminectomy and partial medial facetectomy and foraminotomy. At L23 there was a large disc herniation. I was able to mobilize the traversing nerve root and gain access to the disc space. Note was made of obvious compression from the disc. Protecting the soft tissue structures, a small annulotomy was established. I was able to perform discectomy and remove any extruded disc fragments and any loose fragments from within the disc itself. There is some disc desiccation noted. I tried to p reserve the disc annulus that appeared stable. There were no further extruded fragments noted. There is no evidence of dural tear or leak. Good hemostasis maintained. The wound was copiously irrigated and suctioned dry. Good decompression and discectomy was noted. We were able to proceed with closure. The fascia was closed for a watertight closure. The subcuticular tissue was closed with absorbable suture. The wound was cleaned and dried and dressed with the appropriate dressing. The drapes were broken down. The patient was gently rolled back onto their hospital bed being careful to maintain their cervical spine and good neutral alignment and position. They were woken up by anesthesia, extubated, and brought to the recovery room in good stable condition. The patient will be admitted to the hospital for observation and for appropriate postoperative care, medical management and monitoring. We will continue to follow them closely about the postoperative course.
[2020-11-19] MEDS ORDERED: ONDANSETRON 4 MG/2 ML VIAL IVP PRN (19:16)
[2020-11-19] MEDS ORDERED: HYDROmorphone 0.5 MG/0.5 ML SYRINGE IVP ONE (19:17)
[2020-11-19] MEDS ORDERED: hydrALAZINE HCL 20 MG/ML 1 ML VIAL ONE (19:18)
[2020-11-19] MEDS ORDERED: hydrALAZINE HCL 20 MG/ML 1 ML VIAL IVP ONE (19:21)
[2020-11-19] MEDS ORDERED: diphenhydrAMINE 50 MG/ML 1 ML VIAL ONE (19:27)
[2020-11-19] MEDS ORDERED: diphenhydrAMINE 50 MG/ML 1 ML VIAL IVP ONE (19:33)
[2020-11-19 19:37] LABS: Glucose,Whole Blood 124 mg/dL (75-99)
[2020-11-19] MEDS: SODIUM CHLORIDE 0.9% 1,000 ML IV SCH (20:23)
[2020-11-19 20:47] LABS: Glucose,Whole Blood 151 mg/dL (75-99)
--- NOTE | 2020-11-19 22:24 | XR ---
EXAMINATION TYPE: XR lumbar spine 1V DATE OF EXAM: 11/19/2020 COMPARISON: NONE HISTORY: Laminectomy TECHNIQUE: Single view FINDINGS and impression: Single lateral fluoroscopic image shows the probe with the tip over the inte rspinous space of L2-3 vertebra.
[2020-11-20] MEDS: INSULIN ASPART (NovoLOG) 100 UNIT/ML VIAL SQ SCH ×4 (01:37→13:09)
[2020-11-20] MEDS: PANTOPRAZOLE 40 MG TABLET PO SCH ×2 (01:48→08:17)
[2020-11-20] MEDS: amLODIPine 5 MG TAB PO SCH (01:48)
[2020-11-20] MEDS: ATORVASTATIN 10 MG TAB PO SCH (01:49)
[2020-11-20] MEDS: METOPROLOL TARTRATE 12.5 MG TAB PO SCH ×2 (01:50→08:17)
[2020-11-20] MEDS: PSYLLIUM HUSK 100% 6 GM PACKET PO SCH ×2 (01:51→08:17)
[2020-11-20] MEDS: HYDROmorphone 1 MG/ML 1 ML SYRINGE IVP PRN ×3 (03:13→14:32)
[2020-11-20] MEDS: CYCLOBENZAPRINE 5 MG TAB PO SCH ×2 (05:04→08:17)
[2020-11-20] MEDS: INSULIN DETEMIR (LEVEMIR) 100 UNIT/ML SYR SQ SCH (05:07)
[2020-11-20 06:17] LABS: Basophils % (A) 0 %; Eosinophils % (A) 0 %; HCT 34.7 % (34.0-46.0); HGB 11.6 gm/dL (11.4-16.0); Hypochromasia Slight; Lymphocytes # (A) 0.6 k/uL (1.0-4.8); Lymphocytes % (A) 7 %; MCH 32.1 pg (25.0-35.0); MCHC 33.4 g/dL (31.0-37.0); MCV 96.1 fL (80.0-100.0); Mean Platelet Volume 7.1; Monocytes # (A) 0.5 k/uL (0-1.0); Monocytes % (A) 5 %; Neutrophils # (A) 7.4 k/uL (1.3-7.7); Neutrophils % (A) 86 %; Platelet Count 181 k/uL (150-450); RDW 14.5 % (11.5-15.5); WBC 8.5 k/uL (3.8-10.6)
[2020-11-20 06:34] LABS: African American GFR (CKD) 64 (>60 ml/min/1.73 sqM); Anion Gap 7 mmol/L; Blood Urea Nitrogen 15 mg/dL (7-17); Calcium 9.4 mg/dL (8.4-10.2); Carbon Dioxide 28 mmol/L (22-30); Chloride 99 mmol/L (98-107); Glucose 152 mg/dL (74-99); Non-African American GFR(CKD) 55 (>60 ml/min/1.73 sqM); Potassium 3.9 mmol/L (3.5-5.1); Sodium 134 mmol/L (137-145)
[2020-11-20 06:38] LABS: Glucose,Whole Blood 154 mg/dL (75-99)
[2020-11-20] MEDS: CHLORTHALIDONE 25 MG TAB PO SCH (08:17)
[2020-11-20] MEDS: ASPIRIN 81 MG PO SCH (08:17)
[2020-11-20] MEDS: CYANOCOBALAMIN 500 MCG TAB PO SCH (08:17)
[2020-11-20] MEDS: LOSARTAN 50 MG TAB PO SCH (08:17)
[2020-11-20] MEDS: CHOLECALCIFEROL 25 MCG (1000 IU) TABLET PO SCH (08:18)
[2020-11-20] MEDS: SODIUM CHLORIDE 0.9% 1,000 ML IV SCH (08:25)
--- NOTE | 2020-11-20 08:31 | FL ---
Fluoroscopy HISTORY: Lumbar laminectomy 1 seconds fluoroscopy time supplied to the referring clinician. 1 intraoperative C-arm images docume nt the procedure. See dictated report from orthopedic surgery.
--- NOTE | 2020-11-20 09:26 | P.PN ---
<Michelle Gonsalez - Last Filed: 11/20/20 09:44> Subjective Progress Note Date: 11/20/20 Principal diagnosis: Status post laminectomy and decompression L2-3 L3 4 L4 5 with wide bilateral foraminotomy and partial medial facetectomy and discectomy for decompression L2- 3 This is an 80 year-old female post laminectomy and decompression L2-3 L3 4 L4 5 with wide bilateral foraminotomy and partial medial facetectomy and discectomy for decompression L2-3. This is post-op day 1. The patient was evaluated in the recliner chair at the bedside today. The patient denies nausea, vomiting, abdominal pain, shortness of breath, and chest pain this morning. She states her pain is not controlled at this time. She complains of severe pain in her right buttock area that is not improved since surgery. The patient has been up with physical therapy this morning. Her fuentes catheter remains in at this time. Objective - Vital Signs Vital signs: Vital Signs Temp 98.6 F 11/20/20 05:50 Pulse 108 H 11/20/20 05:50 Resp 18 11/20/20 05:50 BP 131/82 11/20/20 05:50 Pulse Ox 98 11/20/20 05:50 Intake & Output 11/19/20 11/20/20 11/20/20 18:59 06:59 18:59 Intake Total 1100 Output Total 525 500 Balance 575 -500 Intake: IV 1100 Output: Urine 450 500 Estimated Blood Loss 75 Other: Voiding Method Diaper Indwelling Catheter Indwelling Catheter Incontinent # Voids 1 - Exam The patient is an 80-year-old female who is in no acute distress. She is alert and oriented 3. Abdomen is soft and nontender. Chest has good excursion with deep inspiration. Incision site is clean dry and intact. No erythema or purulent drainage. Extremities has not had neurological change from prior to surgery. She sustained dorsiflexion and plantar flexion and EHL function. She has good foot and ankle motion. Bilateral calves are soft and nontender. Neurological and circulatory status is intact. - Labs CBC & Chem 7: 11/20/20 05:35 11/20/20 05:35 Labs: Abnormal Lab Results - Last 24 Hours (Table) 11/19/20 11/19/20 11/19/20 Range/Units 12:06 15:56 19:36 RBC (3.80-5.40) m/uL Lymphocytes # (1.0-4.8) k/uL Sodium (137-145) mmol/L Glucose (74-99) mg/dL POC Glucose (mg/dL) 154 H 123 H 124 H (75-99) mg/dL 11/19/20 11/20/20 11/20/20 Range/Units 20:45 05:35 05:35 RBC 3.60 L (3.80-5.40) m/uL Lymphocytes # 0.6 L (1.0-4.8) k/uL Sodium 134 L (137-145) mmol/L Glucose 152 H (74-99) mg/dL POC Glucose (mg/dL) 151 H (75-99) mg/dL 11/20/20 Range/Units 06:35 RBC (3.80-5.40) m/uL Lymphocytes # (1.0-4.8) k/uL Sodium (137-145) mmol/L Glucose (74-99) mg/dL POC Glucose (mg/dL) 154 H (75-99) mg/dL Microbiology - Last 24 Hours (Table) 11/17/20 06:14 Urine Culture - Final Urine,Voided Escherichia coli Assessment and Plan (1) DDD (degenerative disc disease), lumbosacral Current Visit: Yes Status: Acute Code(s): M51.37 - OTHER INTERVERTEBRAL DISC DEGENERATION, LUMBOSACRAL REGION SNOMED Code(s): 19844827 (2) Intractable low back pain Current Visit: Yes Status: Acute Code(s): M54.5 - LOW BACK PAIN SNOMED Code(s): 73361724900754946 (3) Lumbar back pain with radiculopathy affecting right lower extremity Current Visit: Yes Status: Acute Code(s): M54.16 - RADICULOPATHY, LUMBAR REGION SNOMED Code(s): 703665605 Plan: 1. Continue pain control with [place] and Dilaudid if needed. 2. Continue physical therapy and ambulation. 3. Discontinue fuentes catheter when she is more ambulatory. 4. Anticipate discharge home when pain is controlled and when she is more ambulatory. <Unique Mercer - Last Filed: 11/20/20 12:18> Objective - Vital Signs Vital signs: Vital Signs Temp 98.9 F 11/20/20 12:02 Pulse 96 11/20/20 12:02 Resp 16 11/20/20 12:02 BP 127/71 11/20/20 12:02 Pulse Ox 94 L 11/20/20 12:02 Intake & Output 11/19/20 11/20/20 11/20/20 18:59 06:59 18:59 Intake Total 1100 720 Output Total 525 500 Balance 575 -500 720 Intake: IV 1100 Other 720 Output: Urine 450 500 Estimated Blood Loss 75 Other: Voiding Method Diaper Indwelling Catheter Indwelling Catheter Incontinent # Voids 1 - Labs CBC & Chem 7: 11/20/20 05:35 11/20/20 05:35 Labs: Abnormal Lab Results - Last 24 Hours (Table) 11/19/20 11/19/20 11/19/20 Range/Units 15:56 19:36 20:45 RBC (3.80-5.40) m/uL Lymphocytes # (1.0-4.8) k/uL Sodium (137-145) mmol/L Glucose (74-99) mg/dL POC Glucose (mg/dL) 123 H 124 H 151 H (75-99) mg/dL 11/20/20 11/20/20 11/20/20 Range/Units 05:35 05:35 06:35 RBC 3.60 L (3.80-5.40) m/uL Lymphocytes # 0.6 L (1.0-4.8) k/uL Sodium 134 L (137-145) mmol/L Glucose 152 H (74-99) mg/dL POC Glucose (mg/dL) 154 H (75-99) mg/dL Microbiology - Last 24 Hours (Table) 11/17/20 06:14 Urine Culture - Final Urine,Voided Escherichia coli Assessment and Plan Plan: The patient is seen and examined at bedside. She has had significant improveme nt in her pain from yesterday today and was able to stand up and move with assistance to a commode and into a chair. Apparently she hasn't been able to stand up and move on her own or with assistance in the past couple of weeks so the family is very pleased with this. She definitely looks more comfortable. I agree with the above-stated dictation. She is postop day #1 status post laminectomy decompression L2 to L5 with discectomy L2-3 for her severe spinal stenosis and disc herniation with lower extremity radiculopathy and weakness. At her lumbar spine she has significant degeneration and degenerative spondylolisthesis. There is some relative instability at the area and I think that she could do well with bracing for her lumbar spine. She could be a candidate for lumbar fusion however she is not a good surgical candidate given her age and frail status. Bracing couldn't give her some stability when she is mobile and with physical therapy and we will order an LSO brace for her. She can use this whenever she is up with activities. She does not need to use the brace while seated or while in bed. From an orthopedic standpoint is okay for her to be discharged to skilled [facility] whenever she is stable with medicine.
[2020-11-20 12:03] VITALS: BP 127/71; PULSE 96; RESP 16; TEMP 98.9
[2020-11-20 12:16] LABS: Glucose,Whole Blood 173 mg/dL (75-99)
--- NOTE | 2020-11-20 13:57 | P.DS ---
Providers Date of admission: 11/17/20 12:33 Expected date of discharge: 11/20/20 Attending physician: Hay Johansen Consults: 11/16/20 23:58 Consult Physician Routine Consulting Provider: Unique Mercer Consult Reason/Comments: Intractable back pain Do you want consulting provider notified?: Yes Primary care physician: Minda Arechiga [facility] Hospital Course: Chief Complaint: Increasing lower back pain History of presenting complaint: This is a 80-year-old patient who follows with Dr. Minda arechiga. Chronic stable medical conditions include hypertension, hyperlipidemia, diabetes, osteoarthritis. Does use a walker. Admitted on 09/05/2020 with acute on chronic low back pain. MRI of the lumbar spine showed : spondylosis spinal stenosis. underwent epidural steroid injection and L3-L4. Seen by Dr. Mercer from orthopedic spine. Also by Dr. Wilson from neurology. Patient has declined any major surgical intervention. Then admitted to the hospital on November 05 with hyponatremia, possibly gastritis and duodenitis. And constipation. Patient was doing well upon discharge. Patient's had again progressive increasing pain primarily in the lower extremity on the posterior surface. Finding it difficult to walk. She does use a bedside,. No fever no chills. Appetite is good. Having bowel movements. Patient also had a recent ER visit on November 05. Also has had further lumbar injections by Dr. Chandler from the pain medication team. 11/18/2020: Sitting up in a recliner. Pain present. Family the bedside. Oral intake fair. For surgery tomorrow. 11/19/2020: Laying in bed. Back pain present. Pending surgery this afternoon. No new issues. Nothing by mouth. Family at the bedside. 11/20/2020: Patient yesterday underwent laminectomy and decompression of L2-L3 L4-L5 with right bilateral foraminotomy and partial medial facetectomy. Also discectomy for decompression L2-L3. Surgery was discussed with Dr. Mercer today. It went rather well. Also discussed with the patient and family the bedside. Oral intake good. No nausea vomiting. Sitting up in a recliner. Discussed with Dr. Mercer patient is good to go to rehab today. Also communicated with discharge planners. Discussion and discharge planning more than 35 minutes Consultation: from orthopedic spine Past medical history to include: Diabetes, hypertension, hyperlipidemia, memory impairment, chronic kidney disease, hypothyroid, chronic low back pain with arthritis, spinal stenosis Social history: Does not smoke or drink alcohol. Apparently lives alone. Family history: Dementia Physical examination: VITAL SIGNS: 98.9, 76, 16, 127/71, 94% room air GENERAL: Resting bed, awake EYES: Pupils equal. Conjunctiva normal. NECK: JVD not raised; masses not palpable. HEART: First and second heart sounds are normal; no edema. LUNGS: Respiratory rate normal; clear to auscultation. ABDOMEN: Soft, nontender, no guarding rigidity, liver spleen not palpable, no masses palpable. PSYCH: Awake alert and answered questions. INVESTIGATIONS, reviewed in the clinical context: November 20: White count 8.5 hemoglobin 11.6 platelets 181 potassium 3.9 creati nine 0.96 Chest x-ray: Lungs clear 2-D echocardiogram: Moderate concentric LVH. EF 55-60% November 18: Potassium 3.6 sodium 135 serum osmolality 283 WBC is 6.4 hemoglobin 12.9 platelets 208 sodium 128 potassium 3.3 BUN 24 creatinine 0.84 UA positive for leukoesterase, WBC, bacteria Lumbar spine CT [November 05] severe multilevel DJD with grade 1 anterolisthesis L4 on L5, multiple significant canal stenosis most marked at L4-L5. Cannot exclude disc herniation at L2-L3. Assessment and plan: -Acute on chronic low back pain-from spondylosis and spinal stenosis, and including disc herniation. At different lumbar level. Patient has failed outpatient treatment of the lumbar injections. Has had repeated ER visit.: Slow to respond All medical options seems to be an exhausted. Orthopedics consulted. Status post lumbar surgery. -Hyponatremia. Likely with hypo-osmolarity Sodium of 128, from excessive water intake.: Improved Discussed with patient. Fluid restriction. -GERD PPI -Chronic gastritis and duodenitis PPI -Diabetes mellitus type 2, chronically on insulin Follow Accu-Cheks. -Hyperlipidemia Lipitor 10 mg daily at bedtime -Hypothyroid Synthroid 150 g every 48 hours -Essential hypertension, Amlodipine 5 mg daily at bedtime, Lopressor 12.5 by mouth twice a day, Cozaar 100 mg daily -Hypertensive heart disease On amlodipine, Lopressor, Cozaar -Asymptomatic bacteriuria Patient has no symptoms. No antibiotics for the same. -Hepatic steatosis Follow-up with GI as outpatient -Chronic gait dysfunction at baseline Uses a walker Disposition: [facility]/[place] Plan - Discharge Summary Discharge Rx Participant: No New Discharge Prescriptions: Continue Cholecalciferol [Vitamin D3 (25 Mcg = 1000 Iu)] 25 mcg PO DAILY amLODIPine [Norvasc] 5 mg PO HS Biotin 5 mg PO DAILY Aspirin EC [Ecotrin Low Dose] 81 mg PO DAILY Chlorthalidone [Hygroton] 25 mg PO DAILY Cyclobenzaprine [Flexeril] 5 mg PO Q8H Pantoprazole Sodium [Protonix] 40 mg PO BID Simvastatin [Zocor] 20 mg PO HS Acetaminophen [Tylenol Arthritis] 650 mg PO Q8H PRN PRN Reason: Pain Metoprolol Tartrate [Lopressor] 12.5 mg PO BID Levothyroxine Sodium 150 mcg PO Q48H Cyanocobalamin (Vitamin B-12) [Vitamin B-12] 1,000 mcg PO DAILY Psyllium Husk 100% [Metamucil Packet] 6 gm PO BID #0 Losartan Potassium 100 mg PO DAILY Changed Insulin Glargine,Hum.rec.anlog [Lantus Solostar Pen] 14 unit SQ HS #0 HYDROcodone/APAP 5-325MG [[place] 5-325] 1 tab PO Q6H PRN #12 tab PRN Reason: Pain Discontinued Gabapentin [Neurontin] 300 mg PO TID PRN PRN Reason: Pain Olmesartan Medoxomil 40 mg PO DAILY Discharge Medication List Simvastatin [Zocor] 20 mg PO HS 09/05/20 [History] Acetaminophen [Tylenol Arthritis] 650 mg PO Q8H PRN 10/07/20 [History] Aspirin EC [Ecotrin Low Dose] 81 mg PO DAILY 10/07/20 [History] Biotin 5 mg PO DAILY 10/07/20 [History] Cholecalciferol [Vitamin D3 (25 Mcg = 1000 Iu)] 25 mcg PO DAILY 10/07/20 [History] Cyanocobalamin (Vitamin B-12) [Vitamin B-12] 1,000 mcg PO DAILY 10/07/20 [History] Levothyroxine Sodium 150 mcg PO Q48H 10/07/20 [History] Metoprolol Tartrate [Lopressor] 12.5 mg PO BID 10/07/20 [History] amLODIPine [Norvasc] 5 mg PO HS 10/07/20 [History] Psyllium Husk 100% [Metamucil Packet] 6 gm PO BID #0 10/09/20 [Rx] Chlorthalidone [Hygroton] 25 mg PO DAILY 10/13/20 [History] Cyclobenzaprine [Flexeril] 5 mg PO Q8H 11/05/20 [History] Losartan Potassium 100 mg PO DAILY 11/05/20 [History] Pantoprazole Sodium [Protonix] 40 mg PO BID 11/05/20 [History] HYDROcodone/APAP 5-325MG [[place] 5-325] 1 tab PO Q6H PRN #12 tab 11/20/20 [Rx] Insulin Glargine,Hum.rec.anlog [Lantus Solostar Pen] 14 unit SQ HS #0 11/20/20 [Rx] Follow up Appointment(s)/Referral(s): Aneesh Vicente, LEATHA [PHYSICIAN BRIDGE WORKER APPRENTICE] - 2 Weeks (Patient may follow-up with Aneesh Vicente PA-C or Dr. Harjeet Mercer at [facility] in 2-3 weeks following discharge. ) Minda Arechiga DO [Primary Care Provider] - 1-2 days Patient Instructions/Handouts: Acute Low Back Pain (ED) Activity/Diet/Wound Care/Special Instructions: 1. Patient may shower with Optifoam dressing intact. 2. Patient may remove Optifoam dressing in 4 days and shower without a dressing at that time. 3. Patient should refrain from driving until at least after their first follow- up appointment in the office. 4. Patient should avoid excessive bending, twisting, lifting; avoid overhead lifting; no lifting greater than 10 pounds 5. Take medications as prescribed 6. Do not soak in tub Discharge Disposition: TRANSFER TO SNF/ECF
== END 2020-11-20 17:42 | DRG 519 ==
LOC: EC 19:21 → 6NMEDSUR 11-17 00:24 → OBSVTOIN 11-17 12:33 → 6NMEDSUR 11-17 13:45 → 5NMEDONC 11-17 16:22
PROVIDERS: ADMIT Hospitalist; ATTEND Hospitalist
PROC: 01NB0ZZ Release Lumbar Nerve, Open Approach (ICD-10-PCS; principal; 2020-11-19 16:00)
PROC: 0SB20ZZ Excision of Lumbar Vertebral Disc, Open Approach (ICD-10-PCS; principal; 2020-11-19 16:00)
DX: M48.062 Spinal stenosis, lumbar region with neurogenic claudication (principal); E87.1 Hypo-osmolality and hyponatremia; E11.22 Type 2 diabetes mellitus with diabetic chronic kidney disease; I13.10 Hypertensive heart and chronic kidney disease without heart failure, with stage 1 through stage 4 chronic kidney disease, or unspecified chronic kidney disease; Z79.4 Long term (current) use of insulin; Z66 Do not resuscitate; Z20.822 Contact with and (suspected) exposure to COVID-19; K76.0 Fatty (change of) liver, not elsewhere classified; N18.9 Chronic kidney disease, unspecified; M51.16 Intervertebral disc disorders with radiculopathy, lumbar region; M43.16 Spondylolisthesis, lumbar region; M47.26 Other spondylosis with radiculopathy, lumbar region; M51.17 Intervertebral disc disorders with radiculopathy, lumbosacral region; M47.27 Other spondylosis with radiculopathy, lumbosacral region; G89.29 Other chronic pain; E87.6 Hypokalemia; E78.5 Hyperlipidemia, unspecified; E03.9 Hypothyroidism, unspecified; K21.9 Gastro-esophageal reflux disease without esophagitis; K29.50 Unspecified chronic gastritis without bleeding; K29.80 Duodenitis without bleeding; R82.71 Bacteriuria; K59.00 Constipation, unspecified; Z79.82 Long term (current) use of aspirin; Z79.890 Hormone replacement therapy; Z79.899 Other long term (current) drug therapy; Z90.49 Acquired absence of other specified parts of digestive tract; Z87.42 Personal history of other diseases of the female genital tract; Z87.448 Personal history of other diseases of urinary system; Z87.2 Personal history of diseases of the skin and subcutaneous tissue; Z85.9 Personal history of malignant neoplasm, unspecified; Z90.711 Acquired absence of uterus with remaining cervical stump; Z90.13 Acquired absence of bilateral breasts and nipples; Z60.2 Problems related to living alone; Z96.60 Presence of unspecified orthopedic joint implant; Z98.890 Other specified postprocedural states; Z81.8 Family history of other mental and behavioral disorders; Z82.49 Family history of ischemic heart disease and other diseases of the circulatory system
CPT/HCPCS: 36415; 71045; 72020; 80048; 80053; 81001; 83735; 83930; 85025; 86850; 86900; 86901; 87077; 87086; 87186; 87635; 93005; 93306; 96361; 96374; 96375; 96376; 99285